=== PATIENT | male | born 1985 | race Caucasian/White ===

== ENCOUNTER 2018-07-02 14:21 | Emergency (ER) | payer MEDICAID ==
[2018-07-02] MEDS ORDERED: Sodium Chloride 0.9% 10 ML Syringe FLUSH PRN (14:32)
[2018-07-02] MEDS ORDERED: Albuterol/Ipratropium 3.0-0.5 MG/3 ML Neb Soln NEB ONE (14:32)
[2018-07-02] MEDS ORDERED: Sodium Chloride 0.9% 2.5 ML Syringe FLUSH PRN (14:32)
--- NOTE | 2018-07-02 14:36 | EDM.PDOC ---
<Amanda Desai - Last Filed: 07/02/18 19:12> ED HPI GENERAL MEDICAL PROBLEM - General Chief Complaint: Respiratory Problem Stated Complaint: sob Time Seen by Provider: 07/02/18 14:31 - History of Present Illness INITIAL COMMENTS - FREE TEXT/NARRATIVE: Notes: Patient is alert and oriented. Admission for observation was offered to patient but he declines at this time. He is agreeable to close follow-up with primary care provider. Discussed the risks versus benefits of this with patient and he is agreeable to plan of care with any questions or concerns at this time. Plan: 1. Follow-up with your primary care provider as discussed. 2. Return to the ED as needed and as discussed. - Related Data Allergies Allergy/AdvReac Type Severity Reaction Status Date / Time No Known Allergies Allergy Verified 07/02/18 14:28 Home Meds: Home Meds Metoprolol Succinate 100 mg PO BID 03/15/18 [History] Potassium Chloride 20 meq PO DAILY #30 tablet.er 03/15/18 [Rx] methIMAzole [Methimazole] 30 tab PO DAILY 03/15/18 [History] Albuterol [Ventolin HFA] 1 puff INH Q4H #1 inhaler 07/02/18 [Rx] Furosemide [Lasix] 40 mg PO DAILY 07/02/18 [History] Warfarin [Coumadin] 07/02/18 [History] Course - Vital Signs Last Recorded V/S: Last Vital Signs Temp 97.5 F 07/02/18 14:24 Pulse 84 07/02/18 16:45 Resp 18 07/02/18 16:45 BP 123/86 07/02/18 16:45 Pulse Ox 97 07/02/18 16:45 - Orders/Labs/Meds Orders: Active Orders 24 hr Category Date Time Status EKG Documentation Completion [RC] STAT Care 07/02/18 14:32 Active RT Aerosol Therapy [RC] ASDIRECTED Care 07/02/18 14:32 Active Saline Lock Insert [OM.PC] Stat Oth 07/02/18 14:32 Ordered Labs: Laboratory Tests 07/02/18 07/02/18 07/02/18 Range/Units 14:51 14:51 14:51 WBC 4.99 (4.0-11.0) K/uL RBC 4.27 L (4.50-5.90) M/uL Hgb 12.6 L (13.0-17.0) g/dL Hct 38.0 (38.0-50.0) % MCV 89.0 (80.0-98.0) fL MCH 29.5 (27.0-32.0) pg MCHC 33.2 (31.0-37.0) g/dL RDW Std Deviation 55.5 (28.0-62.0) fl RDW Coeff of Avery 17 H (11.0-15.0) % Plt Count 128 L (150-400) K/uL MPV 12.20 H (7.40-12.00) fL Neut % (Auto) 78.6 (48.0-80.0) % Lymph % (Auto) 14.2 L (16.0-40.0) % [place] % (Auto) 5.6 (0.0-15.0) % Eos % (Auto) 1.2 (0.0-7.0) % Baso % (Auto) 0.4 (0.0-1.5) % Neut # (Auto) 3.9 (1.4-5.7) K/uL Lymph # (Auto) 0.7 (0.6-2.4) K/uL [place] # (Auto) 0.3 (0.0-0.8) K/uL Eos # (Auto) 0.1 (0.0-0.7) K/uL Baso # (Auto) 0.0 (0.0-0.1) K/uL Nucleated RBC % 0.0 /100WBC Nucleated RBCs # 0 K/uL INR 1.14 D-Dimer, Quantitative (0.0-0.50) mg/L FEU ABG Carboxyhemoglobin (0-15) % Sodium 137 (136-148) mmol/L Potassium 4.0 (3.5-5.1) mmol/L Chloride 102 (98-107) mmol/L Carbon Dioxide 25.4 (21.0-32.0) mmol/L BUN 15 (7.0-18.0) mg/dL Creatinine 0.9 (0.8-1.3) mg/dL Est Cr Clr Drug Dosing 114.56 mL/min Estimated GFR (MDRD) > 60.0 ml/min Glucose 134 H (74-106) mg/dL Calcium 8.9 (8.5-10.1) mg/dL Total Bilirubin 1.8 H (0.2-1.0) mg/dL AST 19 (15-37) IU/L ALT 27 (14-63) IU/L Alkaline Phosphatase 124 H (46-116) U/L Troponin I < 0.050 (0.000-0.056) ng/mL B-Natriuretic Peptide (<100) PG/ML Total Protein 8.1 (6.4-8.2) g/dL Albumin 3.8 (3.4-5.0) g/dL Globulin 4.3 H (2.6-4.0) g/dL Albumin/Globulin Ratio 0.9 (0.9-1.6) Urine Opiates Screen (NEGATIVE) Ur Oxycodone Screen (NEGATIVE) Urine Methadone Screen (NEGATIVE) Ur Barbiturates Screen (NEGATIVE) Ur Phencyclidine Scrn (NEGATIVE) Ur Amphetamine Screen (NEGATIVE) U Methamphetamines Scrn (NEGATIVE) U Benzodiazepines Scrn (NEGATIVE) U Cocaine Metab Screen (NEGATIVE) U Marijuana (THC) Screen (NEGATIVE) 07/02/18 07/02/18 07/02/18 Range/Units 14:51 14:51 16:55 WBC (4.0-11.0) K/uL RBC (4.50-5.90) M/uL Hgb (13.0-17.0) g/dL Hct (38.0-50.0) % MCV (80.0-98.0) fL MCH (27.0-32.0) pg MCHC (31.0-37.0) g/dL RDW Std Deviation (28.0-62.0) fl RDW Coeff of Avery (11.0-15.0) % Plt Count (150-400) K/uL MPV (7.40-12.00) fL Neut % (Auto) (48.0-80.0) % Lymph % (Auto) (16.0-40.0) % [place] % (Auto) (0.0-15.0) % Eos % (Auto) (0.0-7.0) % Baso % (Auto) (0.0-1.5) % Neut # (Auto) (1.4-5.7) K/uL Lymph # (Auto) (0.6-2.4) K/uL [place] # (Auto) (0.0-0.8) K/uL Eos # (Auto) (0.0-0.7) K/uL Baso # (Auto) (0.0-0.1) K/uL Nucleated RBC % /100WBC Nucleated RBCs # K/uL INR D-Dimer, Quantitative 0.27 (0.0-0.50) mg/L FEU ABG Carboxyhemoglobin (0-15) % Sodium (136-148) mmol/L Potassium (3.5-5.1) mmol/L Chloride (98-107) mmol/L Carbon Dioxide (21.0-32.0) mmol/L BUN (7.0-18.0) mg/dL Creatinine (0.8-1.3) mg/dL Est Cr Clr Drug Dosing mL/min Estimated GFR (MDRD) ml/min Glucose (74-106) mg/dL Calcium (8.5-10.1) mg/dL Total Bilirubin (0.2-1.0) mg/dL AST (15-37) IU/L ALT (14-63) IU/L Alkaline Phosphatase (46-116) U/L Troponin I (0.000-0.056) ng/mL B-Natriuretic Peptide 150 H (<100) PG/ML Total Protein (6.4-8.2) g/dL Albumin (3.4-5.0) g/dL Globulin (2.6-4.0) g/dL Albumin/Globulin Ratio (0.9-1.6) Urine Opiates Screen NEGATIVE (NEGATIVE) Ur Oxycodone Screen NEGATIVE (NEGATIVE) Urine Methadone Screen NEGATIVE (NEGATIVE) Ur Barbiturates Screen NEGATIVE (NEGATIVE) Ur Phencyclidine Scrn NEGATIVE (NEGATIVE) Ur Amphetamine Screen NEGATIVE (NEGATIVE) U Methamphetamines Scrn NEGATIVE (NEGATIVE) U Benzodiazepines Scrn NEGATIVE (NEGATIVE) U Cocaine Metab Screen NEGATIVE (NEGATIVE) U Marijuana (THC) Screen NEGATIVE (NEGATIVE) 07/02/18 Range/Units 18:08 WBC (4.0-11.0) K/uL RBC (4.50-5.90) M/uL Hgb (13.0-17.0) g/dL Hct (38.0-50.0) % MCV (80.0-98.0) fL MCH (27.0-32.0) pg MCHC (31.0-37.0) g/dL RDW Std Deviation (28.0-62.0) fl RDW Coeff of Avery (11.0-15.0) % Plt Count (150-400) K/uL MPV (7.40-12.00) fL Neut % (Auto) (48.0-80.0) % Lymph % (Auto) (16.0-40.0) % [place] % (Auto) (0.0-15.0) % Eos % (Auto) (0.0-7.0) % Baso % (Auto) (0.0-1.5) % Neut # (Auto) (1.4-5.7) K/uL Lymph # (Auto) (0.6-2.4) K/uL [place] # (Auto) (0.0-0.8) K/uL Eos # (Auto) (0.0-0.7) K/uL Baso # (Auto) (0.0-0.1) K/uL Nucleated RBC % /100WBC Nucleated RBCs # K/uL INR D-Dimer, Quantitative (0.0-0.50) mg/L FEU ABG Carboxyhemoglobin 3.3 (0-15) % Sodium (136-148) mmol/L Potassium (3.5-5.1) mmol/L Chloride (98-107) mmol/L Carbon Dioxide (21.0-32.0) mmol/L BUN (7.0-18.0) mg/dL Creatinine (0.8-1.3) mg/dL Est Cr Clr Drug Dosing mL/min Estimated GFR (MDRD) ml/min Glucose (74-106) mg/dL Calcium (8.5-10.1) mg/dL Total Bilirubin (0.2-1.0) mg/dL AST (15-37) IU/L ALT (14-63) IU/L Alkaline Phosphatase (46-116) U/L Troponin I (0.000-0.056) ng/mL B-Natriuretic Peptide (<100) PG/ML Total Protein (6.4-8.2) g/dL Albumin (3.4-5.0) g/dL Globulin (2.6-4.0) g/dL Albumin/Globulin Ratio (0.9-1.6) Urine Opiates Screen (NEGATIVE) Ur Oxycodone Screen (NEGATIVE) Urine Methadone Screen (NEGATIVE) Ur Barbiturates Screen (NEGATIVE) Ur Phencyclidine Scrn (NEGATIVE) Ur Amphetamine Screen (NEGATIVE) U Methamphetamines Scrn (NEGATIVE) U Benzodiazepines Scrn (NEGATIVE) U Cocaine Metab Screen (NEGATIVE) U Marijuana (THC) Screen (NEGATIVE) Meds: Medications Discontinued Medications Generic Name Dose Route Start Last Admin Trade Name Freq PRN Reason Stop Dose Admin Albuterol/Ipratropium 3 ml 07/02/18 14:32 07/02/18 14:50 Duoneb 3.0-0.5 Mg/3 Ml NEB 07/02/18 14:33 3 ml ONETIME ONE Administration Iopamidol 100 ml 07/02/18 18:03 07/02/18 18:04 Isovue Multipack-370 (76%) IVPUSH 07/02/18 18:04 100 ml ONETIME STA Administration Sodium Chloride 10 ml 07/02/18 14:32 Saline Flush FLUSH ASDIRECTED PRN Keep Vein Open Sodium Chloride 2.5 ml 07/02/18 14:32 Saline Flush FLUSH ASDIRECTED PRN Keep Vein Open Departure - Departure Time of Disposition: 19:11 Disposition: Home, Self-Care 01 Clinical Impression: Dyspnea Qualifiers: Dyspnea type: unspecified Qualified Code(s): R06.00 - Dyspnea, unspecified - Discharge Information Prescriptions: Albuterol [Ventolin HFA] 1 puff INH Q4H #1 inhaler Instructions: Shortness of Breath, Adult, [id number] Referrals: PCP,None [Primary Care Provider] - Forms: ED Department Discharge Additional Instructions: The following information is given to patients seen in the emergency department who are being discharged to home. This information is to outline your options for follow-up care. We provide all patients seen in our emergency department with a follow-up referral. The need for follow-up, as well as the timing and circumstances, are variable depending upon the specifics of your emergency department visit. If you don't have a primary care physician on staff, we will provide you with a referral. We always advise you to contact your personal physician following an emergency department visit to inform them of the circumstance of the visit and for follow-up with them and/or the need for any referrals to a consulting specialist. The emergency department will also refer you to a specialist when appropriate. This referral assures that you have the opportunity for follow-up care with a specialist. All of these measure are taken in an effort to provide you with optimal care, which includes your follow-up. Under all circumstances we always encourage you to contact your private physician who remains a resource for coordinating your care. When calling for follow-up care, please make the office aware that this follow-up is from your recent emergency room visit. If for any reason you are refused follow-up, please contact the [facility] Emergency Department at and asked to speak to the emergency department charge nurse. [facility] [address] [place] [address] [place] [address] 1. Follow-up with your primary care provider as discussed. 2. Return to the ED as needed and as discussed. - My Orders Last 24 Hours: My Active Orders 07/02/18 14:32 EKG Documentation Completion [RC] STAT RT Aerosol Therapy [RC] ASDIRECTED Saline Lock Insert [OM.PC] Stat - Assessment/Plan Last 24 Hours: My Active Orders 07/02/18 14:32 EKG Documentation Completion [RC] STAT RT Aerosol Therapy [RC] ASDIRECTED Saline Lock Insert [OM.PC] Stat <Carson Trujillo E - Last Filed: 07/03/18 14:03> ED HPI GENERAL MEDICAL PROBLEM - General Source of Information: Reports: Patient History Limitations: Reports: No Limitations - History of Present Illness INITIAL COMMENTS - FREE TEXT/NARRATIVE: HISTORY AND PHYSICAL: History of present illness: Patient is a 33-year-old male presents to the ED today with concerns for shortness of breath. Patient states that while he was at work an hour prior to arrival to the ED he began to feel like he couldn't catch his breath. Patient states that since then he has felt short of breath and like he has to sit up all the time. He states he's never had this happen to him prior. Patient denies fever, chills, chest pain, or cough. Denies headache, neck stiff ness, change in vision, syncope, or near syncope. He denies nausea, vomiting, abdominal pain, diarrhea, constipation, or dysuria. Has not noted any blood in urine or stool. Patient has been eating and drinking appropriately. Patient does have a history of atrial fibrillation and states he is on warfarin. Patient states he does not get his warfarin levels checked as that requires him going back: [place]. Review of systems: As per history of present illness and below otherwise all systems reviewed and negative. Past medical history: As per history of present illness and as reviewed below otherwise noncontributory. Surgical history: As per history of present illness and as reviewed below otherwise noncontributory. Social history: See social history for further information Family history: As per history of present illness and as reviewed below otherwise noncontributory. Physical exam: Physical exam is limited due to patient's body habitus. General: Patient is alert, oriented, and in no acute distress. He is sitting comfortably on exam table. HEENT: Atraumatic, normocephalic, pupils equal and reactive bilaterally, negative for conjunctival pallor or scleral icterus, mucous membranes moist, TMs normal bilaterally, throat clear, neck supple, nontender, trachea midline. No drooling or trismus noted. No meningeal signs. No hot potato voice noted. Lungs: Clear to auscultation, breath sounds equal bilaterally, chest nontender. Heart: Heart sounds are difficult to hear due to body habitus. S1S2, regular rate and rhythm without overt murmur Abdomen: Morbidly obese. Firm, distended, nontender. Negative for masses or hepatosplenomegaly. Negative for costovertebral tenderness. Pelvis: Stable nontender. Genitourinary: Deferred. Rectal: Deferred. Skin: Intact, warm, dry. No lesions or rashes noted. Extremities: Atraumatic, negative for cords or calf pain. Neurovascular unremarkable. Neuro: Awake, alert, oriented. Cranial nerves II through XII unremarkable. Cerebellum unremarkable. Motor and sensory unremarkable throughout. Exam nonfocal. Notes: NADEEM Mccarthy has assumed care of this patient will follow remaining diagnostics and disposition. Diagnostics: CBC, CMP, Troponin, EKG, CXR, ddimer, BNP Therapeutics: DuoNeb Impression: Dyspnea, unspecified Definitive disposition and diagnosis as appropriate pending reevaluation and review of above. Past Medical History Cardiovascular History: Reports: Afib, Hypertension, Other (See Below) Other Cardiovascular History: CHF Endocrine/Metabolic History: Reports: Hypothyroidism - Infectious Disease History Infectious Disease History: Reports: Chicken Pox Social & Family History - Family History Family Medical History: Noncontributory - Tobacco Use Smoking Status *Q: Current Every Day Smoker Years of Tobacco use: 15 Packs/Tins Daily: 0.5 - Caffeine Use Caffeine Use: Reports: Coffee - Recreational Drug Use Recreational Drug Use: No ED ROS GENERAL - Review of Systems Review Of Systems: ROS reveals no pertinent complaints other than HPI. ED EXAM, GENERAL - Physical Exam Exam: See Below (see dictation) Course - Orders/Labs/Meds Labs: Laboratory Tests 07/02/18 07/02/18 07/02/18 Range/Units 14:51 14:51 14:51 WBC 4.99 (4.0-11.0) K/uL RBC 4.27 L (4.50-5.90) M/uL Hgb 12.6 L (13.0-17.0) g/dL Hct 38.0 (38.0-50.0) % MCV 89.0 (80.0-98.0) fL MCH 29.5 (27.0-32.0) pg MCHC 33.2 (31.0-37.0) g/dL RDW Std Deviation 55.5 (28.0-62.0) fl RDW Coeff of Avery 17 H (11.0-15.0) % Plt Count 128 L (150-400) K/uL MPV 12.20 H (7.40-12.00) fL Neut % (Auto) 78.6 (48.0-80.0) % Lymph % (Auto) 14.2 L (16.0-40.0) % [place] % (Auto) 5.6 (0.0-15.0) % Eos % (Auto) 1.2 (0.0-7.0) % Baso % (Auto) 0.4 (0.0-1.5) % Neut # (Auto) 3.9 (1.4-5.7) K/uL Lymph # (Auto) 0.7 (0.6-2.4) K/uL [place] # (Auto) 0.3 (0.0-0.8) K/uL Eos # (Auto) 0.1 (0.0-0.7) K/uL Baso # (Auto) 0.0 (0.0-0.1) K/uL Nucleated RBC % 0.0 /100WBC Nucleated RBCs # 0 K/uL INR 1.14 D-Dimer, Quantitative (0.0-0.50) mg/L FEU ABG Carboxyhemoglobin (0-15) % Sodium 137 (136-148) mmol/L Potassium 4.0 (3.5-5.1) mmol/L Chloride 102 (98-107) mmol/L Carbon Dioxide 25.4 (21.0-32.0) mmol/L BUN 15 (7.0-18.0) mg/dL Creatinine 0.9 (0.8-1.3) mg/dL Est Cr Clr Drug Dosing 114.56 mL/min Estimated GFR (MDRD) > 60.0 ml/min Glucose 134 H (74-106) mg/dL Calcium 8.9 (8.5-10.1) mg/dL Total Bilirubin 1.8 H (0.2-1.0) mg/dL AST 19 (15-37) IU/L ALT 27 (14-63) IU/L Alkaline Phosphatase 124 H (46-116) U/L Troponin I < 0.050 (0.000-0.056) ng/mL B-Natriuretic Peptide (<100) PG/ML Total Protein 8.1 (6.4-8.2) g/dL Albumin 3.8 (3.4-5.0) g/dL Globulin 4.3 H (2.6-4.0) g/dL Albumin/Globulin Ratio 0.9 (0.9-1.6) Urine Opiates Screen (NEGATIVE) Ur Oxycodone Screen (NEGATIVE) Urine Methadone Screen (NEGATIVE) Ur Barbiturates Screen (NEGATIVE) Ur Phencyclidine Scrn (NEGATIVE) Ur Amphetamine Screen (NEGATIVE) U Methamphetamines Scrn (NEGATIVE) U Benzodiazepines Scrn (NEGATIVE) U Cocaine Metab Screen (NEGATIVE) U Marijuana (THC) Screen (NEGATIVE) 07/02/18 07/02/18 07/02/18 Range/Units 14:51 14:51 16:55 WBC (4.0-11.0) K/uL RBC (4.50-5.90) M/uL Hgb (13.0-17.0) g/dL Hct (38.0-50.0) % MCV (80.0-98.0) fL MCH (27.0-32.0) pg MCHC (31.0-37.0) g/dL RDW Std Deviation (28.0-62.0) fl RDW Coeff of Avery (11.0-15.0) % Plt Count (150-400) K/uL MPV (7.40-12.00) fL Neut % (Auto) (48.0-80.0) % Lymph % (Auto) (16.0-40.0) % [place] % (Auto) (0.0-15.0) % Eos % (Auto) (0.0-7.0) % Baso % (Auto) (0.0-1.5) % Neut # (Auto) (1.4-5.7) K/uL Lymph # (Auto) (0.6-2.4) K/uL [place] # (Auto) (0.0-0.8) K/uL Eos # (Auto) (0.0-0.7) K/uL Baso # (Auto) (0.0-0.1) K/uL Nucleated RBC % /100WBC Nucleated RBCs # K/uL INR D-Dimer, Quantitative 0.27 (0.0-0.50) mg/L FEU ABG Carboxyhemoglobin (0-15) % Sodium (136-148) mmol/L Potassium (3.5-5.1) mmol/L Chloride (98-107) mmol/L Carbon Dioxide (21.0-32.0) mmol/L BUN (7.0-18.0) mg/dL Creatinine (0.8-1.3) mg/dL Est Cr Clr Drug Dosing mL/min Estimated GFR (MDRD) ml/min Glucose (74-106) mg/dL Calcium (8.5-10.1) mg/dL Total Bilirubin (0.2-1.0) mg/dL AST (15-37) IU/L ALT (14-63) IU/L Alkaline Phosphatase (46-116) U/L Troponin I (0.000-0.056) ng/mL B-Natriuretic Peptide 150 H (<100) PG/ML Total Protein (6.4-8.2) g/dL Albumin (3.4-5.0) g/dL Globulin (2.6-4.0) g/dL Albumin/Globulin Ratio (0.9-1.6) Urine Opiates Screen NEGATIVE (NEGATIVE) Ur Oxycodone Screen NEGATIVE (NEGATIVE) Urine Methadone Screen NEGATIVE (NEGATIVE) Ur Barbiturates Screen NEGATIVE (NEGATIVE) Ur Phencyclidine Scrn NEGATIVE (NEGATIVE) Ur Amphetamine Screen NEGATIVE (NEGATIVE) U Methamphetamines Scrn NEGATIVE (NEGATIVE) U Benzodiazepines Scrn NEGATIVE (NEGATIVE) U Cocaine Metab Screen NEGATIVE (NEGATIVE) U Marijuana (THC) Screen NEGATIVE (NEGATIVE) 07/02/18 Range/Units 18:08 WBC (4.0-11.0) K/uL RBC (4.50-5.90) M/uL Hgb (13.0-17.0) g/dL Hct (38.0-50.0) % MCV (80.0-98.0) fL MCH (27.0-32.0) pg MCHC (31.0-37.0) g/dL RDW Std Deviation (28.0-62.0) fl RDW Coeff of Avery (11.0-15.0) % Plt Count (150-400) K/uL MPV (7.40-12.00) fL Neut % (Auto) (48.0-80.0) % Lymph % (Auto) (16.0-40.0) % [place] % (Auto) (0.0-15.0) % Eos % (Auto) (0.0-7.0) % Baso % (Auto) (0.0-1.5) % Neut # (Auto) (1.4-5.7) K/uL Lymph # (Auto) (0.6-2.4) K/uL [place] # (Auto) (0.0-0.8) K/uL Eos # (Auto) (0.0-0.7) K/uL Baso # (Auto) (0.0-0.1) K/uL Nucleated RBC % /100WBC Nucleated RBCs # K/uL INR D-Dimer, Quantitative (0.0-0.50) mg/L FEU ABG Carboxyhemoglobin 3.3 (0-15) % Sodium (136-148) mmol/L Potassium (3.5-5.1) mmol/L Chloride (98-107) mmol/L Carbon Dioxide (21.0-32.0) mmol/L BUN (7.0-18.0) mg/dL Creatinine (0.8-1.3) mg/dL Est Cr Clr Drug Dosing mL/min Estimated GFR (MDRD) ml/min Glucose (74-106) mg/dL Calcium (8.5-10.1) mg/dL Total Bilirubin (0.2-1.0) mg/dL AST (15-37) IU/L ALT (14-63) IU/L Alkaline Phosphatase (46-116) U/L Troponin I (0.000-0.056) ng/mL B-Natriuretic Peptide (<100) PG/ML Total Protein (6.4-8.2) g/dL Albumin (3.4-5.0) g/dL Globulin (2.6-4.0) g/dL Albumin/Globulin Ratio (0.9-1.6) Urine Opiates Screen (NEGATIVE) Ur Oxycodone Screen (NEGATIVE) Urine Methadone Screen (NEGATIVE) Ur Barbiturates Screen (NEGATIVE) Ur Phencyclidine Scrn (NEGATIVE) Ur Amphetamine Screen (NEGATIVE) U Methamphetamines Scrn (NEGATIVE) U Benzodiazepines Scrn (NEGATIVE) U Cocaine Metab Screen (NEGATIVE) U Marijuana (THC) Screen (NEGATIVE)
--- NOTE | 2018-07-02 15:04 | CR ---
EXAMINATION: Portable chest radiograph. HISTORY: Shortness of breath. FINDINGS: The trachea is midline. The heart is mildly enlarged for technique. The cardiomediastinal silhouette is within normal limits. No pulmonary infiltrates, effusions or pneumothorax. Osseous structures appear unremarkable. IMPRESSION: 1. No acute cardiopulmonary process. 2. Mild cardiomegaly.
[2018-07-02 15:23] LABS: CHLORIDE,CL 102 mmol/L (98-107); SODIUM,NA 137 mmol/L (136-148)
[2018-07-02] MEDS ORDERED: Iopamidol 755 MG/ML 500 ML Multipack Bottle IVPUSH STA (18:03)
--- NOTE | 2018-07-02 19:00 | CT ---
INDICATION: Chest pain, shortness of breath TECHNIQUE: CT chest pulmonary PE protocol acquired with 100 cc Isovue 370 IV contrast. COMPARISON: None FINDINGS: Cardiovascular structures: Exam is limited by patient body habitus. Although no large central pulmonary embolus is seen within the main or segmental branches of the pulmonary arteries, the subsegmental branches cannot be adequately evaluated with this exam. Cardiomegaly. No sign of aneurysm or dissection in the thoracic aorta. Mediastinum and mike: No mass or adenopathy. Lungs: Clear. Pleura and pericardium: No effusions. Chest wall and axilla: No mass or adenopathy. Upper abdomen: Unremarkable. Bones: No significant findings. IMPRESSION: Exam is limited by patient body habitus. Although no large central pulmonary embolus is seen within the main or segmental branches of the pulmonary arteries, the subsegmental branches cannot be adequately evaluated and pulmonary embolus cannot be excluded with this exam. No pneumonia, effusion, or pneumothorax. Cardiomegaly. Cardiology referral recommended. Please note that all CT scans at this facility use dose modulation, iterative reconstruction, and/or weight-based dosing when appropriate to reduce radiation dose to as low as reasonably achievable. Dictated by Mary Keller MD @ Jul 02 2018 6:57PM Signed by Dr. Mary Keller @ Jul 02 2018 6:57PM
== END 2018-07-02 19:34 | disposition home or self-care (01) ==
LOC: MW.ED 14:21
DX: R06.00 Dyspnea, unspecified (principal); I48.91 Unspecified atrial fibrillation; I11.0 Hypertensive heart disease with heart failure; I50.9 Heart failure, unspecified; E03.9 Hypothyroidism, unspecified; F17.210 Nicotine dependence, cigarettes, uncomplicated
CPT/HCPCS: 36415; 71045; 71275; 80053; 80305; 82375; 83880; 84484; 85025; 85379; 85610; 93005; 94640; 99285; Q9967; J7620-GY

== ENCOUNTER 2018-09-07 07:48 | Inpatient (IN) | payer MEDICAID ==
[2018-09-07] MEDS ORDERED: Furosemide 40 MG/4 ML VIAL IVPUSH ONE (08:00)
[2018-09-07] MEDS ORDERED: Sodium Chloride 0.9% 1,000 ML IV SCH (08:00)
[2018-09-07] MEDS ORDERED: methylPREDNISolone Sodium Succinate 125 MG/2 ML SDV IVPUSH ONE (08:00)
[2018-09-07] MEDS ORDERED: Albuterol/Ipratropium 3.0-0.5 MG/3 ML Neb Soln NEB ONE (08:00)
[2018-09-07] MEDS ORDERED: Diltiazem 25 MG/5 ML SDV IVPUSH ONE ×2 (08:04→08:51)
--- NOTE | 2018-09-07 08:06 | EDM.PDOC ---
ED HPI GENERAL MEDICAL PROBLEM - General Chief Complaint: Respiratory Problem Stated Complaint: SHORTNESS OF BREATH Time Seen by Provider: 09/07/18 08:04 Source of Information: Reports: Patient - History of Present Illness INITIAL COMMENTS - FREE TEXT/NARRATIVE: HISTORY AND PHYSICAL: History of present illness: []Patient presents with 2-3 days of shortness breath and increasing edema No fever nausea vomiting chills sweats no chest pain headache dizziness palpitation no bowel or urine symptoms Review of systems: As per history of present illness and below otherwise all systems reviewed and negative. Past medical history: As per history of present illness and as reviewed below otherwise noncontributory. Surgical history: As per history of present illness and as reviewed below otherwise noncontributory. Social history: No reported history of drug or alcohol abuse. Family history: As per history of present illness and as reviewed below otherwise noncontributory. Physical exam: HEENT: Atraumatic, normocephalic, pupils reactive, negative for conjunctival pallor or scleral icterus, mucous membranes moist, throat clear, neck supple, nontender, trachea midline. Lungs: Clear to auscultation, breath sounds equal bilaterally, chest nontender. Heart: S1S2, regular, negative for clicks, rubs, or JVD. Abdomen: Soft, nondistended, nontender. Negative for masses or hepatosplenomegaly. Negative for costovertebral tenderness. Pelvis: Stable nontender. Genitourinary: Deferred. Rectal: Deferred. Extremities: Atraumatic, negative for cords or calf pain. Neurovascular unremarkable. Neuro: Awake, alert, oriented. Cranial nerves II through XII unremarkable. Cerebellum unremarkable. Motor and sensory unremarkable throughout. Exam nonfocal. Diagnostics: [CBC CMP UA INR troponin BN peptide EKG Chest 1 view ] Therapeutics: [ normal saline Lasix 40 mg IDuoNeb Solu-Medrol V Cardizem 20 mg IV ] Impression: [ A. fib with RVR]-read 140 CHF Subtherapeutic INR Edema Short of breath Definitive disposition and diagnosis as appropriate pending reevaluation and review of above. - Related Data Allergies Allergy/AdvReac Type Severity Reaction Status Date / Time No Known Allergies Allergy Verified 09/07/18 07:54 Home Meds: Home Meds Metoprolol Succinate 100 mg PO BID 03/15/18 [History] Potassium Chloride 20 meq PO DAILY #30 tablet.er 03/15/18 [Rx] methIMAzole [Methimazole] 30 tab PO DAILY 03/15/18 [History] Albuterol [Ventolin HFA] 1 puff INH Q4H #1 inhaler 07/02/18 [Rx] Furosemide [Lasix] 40 mg PO DAILY 07/02/18 [History] Warfarin [Coumadin] 07/02/18 [History] Past Medical History Cardiovascular History: Reports: Afib, Hypertension, Other (See Below) Other Cardiovascular History: CHF Endocrine/Metabolic History: Reports: Hypothyroidism - Infectious Disease History Infectious Disease History: Reports: Chicken Pox - Past Surgical History Cardiovascular Surgical History: Reports: None Social & Family History - Family History Family Medical History: Noncontributory - Tobacco Use Years of Tobacco use: 3 Packs/Tins Daily: 0.5 - Caffeine Use Caffeine Use: Reports: None - Recreational Drug Use Recreational Drug Use: No ED ROS GENERAL - Review of Systems Review Of Systems: See Below ED EXAM, GENERAL - Physical Exam Exam: See Below Course - Vital Signs Last Recorded V/S: Last Vital Signs Temp 97.2 F 09/07/18 07:56 Pulse 92 09/07/18 10:15 Resp 20 09/07/18 10:15 BP 136/83 09/07/18 10:15 Pulse Ox 94 L 09/07/18 10:15 - Orders/Labs/Meds Orders: Active Orders 24 hr Category Date Time Status EKG Documentation Completion [RC] STAT Care 09/07/18 08:02 Active RT Aerosol Therapy [RC] ASDIRECTED Care 09/07/18 08:01 Active CULTURE BLOOD [BC] Stat Lab 09/07/18 08:50 Received CULTURE BLOOD [BC] Stat Lab 09/07/18 09:00 Results UA RFX ADALID AND CULT IF INDIC [URIN] Stat Lab 09/07/18 08:49 Received Sodium Chloride 0.9% [Normal Saline] 1,000 ml Med 09/07/18 08:00 Active IV STAT Blood Culture x2 Reflex Set [OM.PC] Stat Oth 09/07/18 08:01 Ordered Medication Orders Sodium Chloride (Normal Saline) 1,000 mls @ 125 mls/hr IV STAT NOAH Last Admin: 09/07/18 08:11 Dose: 125 mls/hr Labs: Laboratory Tests 0609/07/18 09/07/18 Range/Units 07:58 07:58 07:58 WBC 5.05 (4.0-11.0) K/uL RBC 4.28 L (4.50-5.90) M/uL Hgb 12.5 L (13.0-17.0) g/dL Hct 39.2 (38.0-50.0) % MCV 91.6 (80.0-98.0) fL MCH 29.2 (27.0-32.0) pg MCHC 31.9 (31.0-37.0) g/dL RDW Std Deviation 51.9 (28.0-62.0) fl RDW Coeff of Avery 16 H (11.0-15.0) % Plt Count 147 L (150-400) K/uL MPV 13.10 H (7.40-12.00) fL Neut % (Auto) 66.7 (48.0-80.0) % Lymph % (Auto) 17.4 (16.0-40.0) % [place] % (Auto) 14.1 (0.0-15.0) % Eos % (Auto) 1.6 (0.0-7.0) % Baso % (Auto) 0.2 (0.0-1.5) % Neut # (Auto) 3.4 (1.4-5.7) K/uL Lymph # (Auto) 0.9 (0.6-2.4) K/uL [place] # (Auto) 0.7 (0.0-0.8) K/uL Eos # (Auto) 0.1 (0.0-0.7) K/uL Baso # (Auto) 0.0 (0.0-0.1) K/uL Nucleated RBC % 0.0 /100WBC Nucleated RBCs # 0 K/uL INR 1.28 D-Dimer, Quantitative (0.0-0.50) mg/L FEU Sodium 136 (136-148) mmol/L Potassium 4.0 (3.5-5.1) mmol/L Chloride 103 (98-107) mmol/L Carbon Dioxide 22.4 (21.0-32.0) mmol/L BUN 15 (7.0-18.0) mg/dL Creatinine 0.9 (0.8-1.3) mg/dL Est Cr Clr Drug Dosing 114.56 mL/min Estimated GFR (MDRD) > 60.0 ml/min Glucose 107 H (74-106) mg/dL Calcium 8.9 (8.5-10.1) mg/dL Total Bilirubin 2.3 H (0.2-1.0) mg/dL AST 28 (15-37) IU/L ALT 32 (14-63) IU/L Alkaline Phosphatase 218 H (46-116) U/L Creatine Kinase 113 (26-308) U/L Troponin I < 0.050 (0.000-0.056) ng/mL B-Natriuretic Peptide (<100) PG/ML Total Protein 8.2 (6.4-8.2) g/dL Albumin 3.5 (3.4-5.0) g/dL Globulin 4.7 H (2.6-4.0) g/dL Albumin/Globulin Ratio 0.7 L (0.9-1.6) Urine Opiates Screen (NEGATIVE) Ur Oxycodone Screen (NEGATIVE) Urine Methadone Screen (NEGATIVE) Ur Barbiturates Screen (NEGATIVE) Ur Phencyclidine Scrn (NEGATIVE) Ur Amphetamine Screen (NEGATIVE) U Methamphetamines Scrn (NEGATIVE) U Benzodiazepines Scrn (NEGATIVE) U Cocaine Metab Screen (NEGATIVE) U Marijuana (THC) Screen (NEGATIVE) 09/07/18 09/07/18 09/07/18 Range/Units 07:58 07:58 08:49 WBC (4.0-11.0) K/uL RBC (4.50-5.90) M/uL Hgb (13.0-17.0) g/dL Hct (38.0-50.0) % MCV (80.0-98.0) fL MCH (27.0-32.0) pg MCHC (31.0-37.0) g/dL RDW Std Deviation (28.0-62.0) fl RDW Coeff of Avery (11.0-15.0) % Plt Count (150-400) K/uL MPV (7.40-12.00) fL Neut % (Auto) (48.0-80.0) % Lymph % (Auto) (16.0-40.0) % [place] % (Auto) (0.0-15.0) % Eos % (Auto) (0.0-7.0) % Baso % (Auto) (0.0-1.5) % Neut # (Auto) (1.4-5.7) K/uL Lymph # (Auto) (0.6-2.4) K/uL [place] # (Auto) (0.0-0.8) K/uL Eos # (Auto) (0.0-0.7) K/uL Baso # (Auto) (0.0-0.1) K/uL Nucleated RBC % /100WBC Nucleated RBCs # K/uL INR D-Dimer, Quantitative 1.03 H (0.0-0.50) mg/L FEU Sodium (136-148) mmol/L Potassium (3.5-5.1) mmol/L Chloride (98-107) mmol/L Carbon Dioxide (21.0-32.0) mmol/L BUN (7.0-18.0) mg/dL Creatinine (0.8-1.3) mg/dL Est Cr Clr Drug Dosing mL/min Estimated GFR (MDRD) ml/min Glucose (74-106) mg/dL Calcium (8.5-10.1) mg/dL Total Bilirubin (0.2-1.0) mg/dL AST (15-37) IU/L ALT (14-63) IU/L Alkaline Phosphatase (46-116) U/L Creatine Kinase (26-308) U/L Troponin I (0.000-0.056) ng/mL B-Natriuretic Peptide 268 H (<100) PG/ML Total Protein (6.4-8.2) g/dL Albumin (3.4-5.0) g/dL Globulin (2.6-4.0) g/dL Albumin/Globulin Ratio (0.9-1.6) Urine Opiates Screen NEGATIVE (NEGATIVE) Ur Oxycodone Screen NEGATIVE (NEGATIVE) Urine Methadone Screen NEGATIVE (NEGATIVE) Ur Barbiturates Screen NEGATIVE (NEGATIVE) Ur Phencyclidine Scrn NEGATIVE (NEGATIVE) Ur Amphetamine Screen NEGATIVE (NEGATIVE) U Methamphetamines Scrn NEGATIVE (NEGATIVE) U Benzodiazepines Scrn NEGATIVE (NEGATIVE) U Cocaine Metab Screen NEGATIVE (NEGATIVE) U Marijuana (THC) Screen NEGATIVE (NEGATIVE) Meds: Medications Generic Name Dose Route Start Last Admin Trade Name Freq PRN Reason Stop Dose Admin Sodium Chloride 1,000 mls @ 125 mls/hr 09/07/18 08:00 09/07/18 08:11 Normal Saline IV 125 mls/hr STAT NOAH Administration Discontinued Medications Generic Name Dose Route Start Last Admin Trade Name Alex MARAVILLAN Reason Stop Dose Admin Albuterol/Ipratropium 3 ml 09/07/18 08:00 09/07/18 08:08 Duoneb 3.0-0.5 Mg/3 Ml NEB 09/07/18 08:01 3 ml ONETIME ONE Administration Diltiazem HCl 20 mg 09/07/18 08:04 09/07/18 08:14 Diltiazem IVPUSH 09/07/18 08:05 20 mg ONETIME ONE Administration Diltiazem HCl 20 mg 09/07/18 08:51 09/07/18 09:00 Diltiazem IVPUSH 09/07/18 08:52 20 mg ONETIME ONE Administration Enoxaparin Sodium 238 mg 09/07/18 09:01 09/07/18 09:26 Lovenox SUBCUT 09/07/18 09:02 Not Given ONETIME ONE Enoxaparin Sodium 238 mg 09/07/18 09:17 09/07/18 09:40 Lovenox SUBCUT 09/07/18 09:18 238 mg ONETIME ONE Administration Furosemide 40 mg 09/07/18 08:00 09/07/18 08:11 Lasix IVPUSH 09/07/18 08:01 40 mg NOW ONE Administration Iopamidol 100 ml 09/07/18 09:51 09/07/18 09:52 Isovue Multipack-370 (76%) IVPUSH 09/07/18 09:52 100 ml ONETIME STA Administration Methylprednisolone Sodium Succinate 125 mg 09/07/18 08:00 09/07/18 08:11 Solu-Medrol IVPUSH 09/07/18 08:01 125 mg ONETIME ONE Administration Metoprolol Tartrate 5 mg 09/07/18 10:41 Lopressor IVPUSH 09/07/18 10:42 NOW STA Departure - Departure Time of Disposition: 10:45 Disposition: Refer to Observation Condition: Poor Clinical Impression: Atrial fibrillation with RVR, Dependent edema, Subtherapeutic international normalized ratio (INR) Dyspnea Qualifiers: Dyspnea type: unspecified Qualified Code(s): R06.00 - Dyspnea, unspecified - Discharge Information Referrals: PCP,None [Primary Care Provider] - Forms: ED Department Discharge - My Orders Last 24 Hours: My Active Orders 09/07/18 08:00 Sodium Chloride 0.9% [Normal Saline] 1,000 ml IV STAT 09/07/18 08:01 RT Aerosol Therapy [RC] ASDIRECTED Blood Culture x2 Reflex Set [OM.PC] Stat 09/07/18 08:02 EKG Documentation Completion [RC] STAT 09/07/18 08:49 UA RFX ADALID AND CULT IF INDIC [URIN] Stat 09/07/18 08:50 CULTURE BLOOD [BC] Stat 09/07/18 09:00 CULTURE BLOOD [BC] Stat - Assessment/Plan Last 24 Hours: My Active Orders 09/07/18 08:00 Sodium Chloride 0.9% [Normal Saline] 1,000 ml IV STAT 09/07/18 08:01 RT Aerosol Therapy [RC] ASDIRECTED Blood Culture x2 Reflex Set [OM.PC] Stat 09/07/18 08:02 EKG Documentation Completion [RC] STAT 09/07/18 08:49 UA RFX ADALID AND CULT IF INDIC [URIN] Stat 09/07/18 08:50 CULTURE BLOOD [BC] Stat 09/07/18 09:00 CULTURE BLOOD [BC] Stat
[2018-09-07 08:34] LABS: CHLORIDE,CL 103 mmol/L (98-107); SODIUM,NA 136 mmol/L (136-148)
--- NOTE | 2018-09-07 08:44 | CR ---
Indication: Shortness of breath. Technique: A single AP portable view of the chest was obtained. Comparison: None Findings: The heart is enlarged. Bibasilar atelectasis identified. No pleural effusion or pneumothorax is identified. Impression: Cardiomegaly. Dictated by Sofy Rivera MD @ Sep 07 2018 8:44AM Signed by Dr. Sofy Rivera @ Sep 07 2018 8:44AM
[2018-09-07] MEDS ORDERED: Enoxaparin 100 MG/1 ML Syringe SUBCUT ONE (09:01)
[2018-09-07] MEDS ORDERED: Enoxaparin 150 MG/1 ML Syringe SUBCUT ONE (09:17)
[2018-09-07] MEDS ORDERED: Iopamidol 755 MG/ML 500 ML Multipack Bottle IVPUSH STA (09:51)
--- NOTE | 2018-09-07 10:25 | CT ---
Indication: Two days of worsening shortness of breath. History of hypertension and atrial fibrillation. Technique: Multiple contiguous axial images were obtained from the thoracic inlet through the upper abdomen after the intravenous administration of 100 milliliters Isovue 370. Please note that all CT scans at this facility use dose modulation, iterative reconstruction, and/or weight-based dosing when appropriate to reduce radiation dose to as low as reasonably achievable. Comparison: July 02, 2018. Findings: The heart is enlarged. No pericardial effusion is identified. No mediastinal, hilar, or axillary lymphadenopathy is identified. The aorta is normal in caliber. There is no evidence of aortic dissection. No pulmonary embolism is identified. This exam is limited due to the patient`s body habitus. The visualized portions of the liver and spleen are grossly normal. No lytic or blastic lesions of the spine are identified. The lungs are clear. No infiltrate, pleural effusion, or pneumothorax is identified. Impression: No evidence of pulmonary embolism. Limited examination due to the patient`s body habitus. Cardiomegaly. Please note that all CT scans at this facility use dose modulation, iterative reconstruction, and/or weight-based dosing when appropriate to reduce radiation dose to as low as reasonably achievable. Dictated by Sofy Rivera MD @ Sep 07 2018 10:13AM Signed by Dr. Sofy Rivera @ Sep 07 2018 10:23AM
[2018-09-07] MEDS ORDERED: Metoprolol Tartrate 5 MG/5 ML SDV IVPUSH STA (10:41)
[2018-09-07] MEDS ORDERED: Albuterol/Ipratropium 3.0-0.5 MG/3 ML Neb Soln NEB PRN (13:53)
--- NOTE | 2018-09-07 14:03 | PCM.HP ---
H&P History of Present Illness - General Date of Service: 09/07/18 Admit Problem/Dx: Admission Diagnosis/Problem Admission Diagnosis/Problem CHF, Congestive heart failure - History of Present Illness Initial Comments - Free Text/Narative: 33 yo male with pmh of CHF, atrial fibrillation and hyperthyroidism who presents with shortness of breath and palpitations. Patient reports a weight gain of 200 LBS over the past year and a half. He reports increased leg edema and shortness of breath when he lies down. He believes his medications have stopped working. He denies any fevers, chills, or chest pain. CT angiogram was negative for PE but reported cardiomegaly. He was noted to be in atrial fibrillation with RVR. In the ED he got several doses of diltiazem and IV fluids. He did also receive Lasix. - Related Data Allergies/Adverse Reactions: Allergies Allergy/AdvReac Type Severity Reaction Status Date / Time No Known Allergies Allergy Verified 09/07/18 07:54 Home Medications: Home Meds Metoprolol Succinate 50 mg PO BID 03/15/18 [History] Potassium Chloride 20 meq PO DAILY #30 tablet.er 03/15/18 [Rx] methIMAzole [Methimazole] 30 mg PO DAILY 03/15/18 [History] Furosemide [Lasix] 40 mg PO DAILY 07/02/18 [History] Warfarin [Coumadin] 50 mg PO DAILY 07/02/18 [History] Past Medical History Cardiovascular History: Reports: Afib, Hypertension, Other (See Below) Other Cardiovascular History: CHF Endocrine/Metabolic History: Reports: Hypothyroidism - Infectious Disease History Infectious Disease History: Reports: Chicken Pox - Past Surgical History Cardiovascular Surgical History: Reports: None Social & Family History - Family History Family Medical History: Noncontributory - Tobacco Use Smoking Status *Q: Light Tobacco Smoker Years of Tobacco use: 4 Packs/Tins Daily: 1 Used Tobacco, but Quit: No Second Hand Smoke Exposure: Yes - Caffeine Use Caffeine Use: Reports: Coffee, Energy Drinks, Soda, Tea Other Caffeine Use: Every day, a pot a coffee a day, two cokes a day, - Recreational Drug Use Recreational Drug Use: No H&P Review of Systems - Review of Systems: Review Of Systems: ROS reveals no pertinent complaints other than HPI. Exam - Exam Exam: See Below - Vital Signs Vital Signs: Last Vital Signs Temp 35.9 C 09/07/18 12:00 Pulse 104 H 09/07/18 12:00 Resp 20 09/07/18 12:00 BP 134/98 H 09/07/18 12:00 Pulse Ox 94 L 09/07/18 12:00 Weight: 235.006 kg - Exam General: Alert, Oriented, Other (morbidly obese) HEENT: Mucosa Moist & [place] Lungs: Clear to Auscultation, Normal Respiratory Effort Cardiovascular: Irregular Rhythm, Tachycardia GI/Abdominal Exam: Soft, Non-Tender Extremities: Non-Tender, No Pedal Edema, Normal Capillary Refill, Other (+3 edema) Skin: Warm, Dry, Intact - Patient Data Lab Results Last 24 hrs: Laboratory Results - last 24 hr 09/07/18 09/07/18 09/07/18 Range/Units 07:58 07:58 07:58 WBC 5.05 (4.0-11.0) K/uL RBC 4.28 L (4.50-5.90) M/uL Hgb 12.5 L (13.0-17.0) g/dL Hct 39.2 (38.0-50.0) % MCV 91.6 (80.0-98.0) fL MCH 29.2 (27.0-32.0) pg MCHC 31.9 (31.0-37.0) g/dL RDW Std Deviation 51.9 (28.0-62.0) fl RDW Coeff of Avery 16 H (11.0-15.0) % Plt Count 147 L (150-400) K/uL MPV 13.10 H (7.40-12.00) fL Neut % (Auto) 66.7 (48.0-80.0) % Lymph % (Auto) 17.4 (16.0-40.0) % [place] % (Auto) 14.1 (0.0-15.0) % Eos % (Auto) 1.6 (0.0-7.0) % Baso % (Auto) 0.2 (0.0-1.5) % Neut # (Auto) 3.4 (1.4-5.7) K/uL Lymph # (Auto) 0.9 (0.6-2.4) K/uL [place] # (Auto) 0.7 (0.0-0.8) K/uL Eos # (Auto) 0.1 (0.0-0.7) K/uL Baso # (Auto) 0.0 (0.0-0.1) K/uL Nucleated RBC % 0.0 /100WBC Nucleated RBCs # 0 K/uL INR 1.28 D-Dimer, Quantitative (0.0-0.50) mg/L FEU Sodium 136 (136-148) mmol/L Potassium 4.0 (3.5-5.1) mmol/L Chloride 103 (98-107) mmol/L Carbon Dioxide 22.4 (21.0-32.0) mmol/L BUN 15 (7.0-18.0) mg/dL Creatinine 0.9 (0.8-1.3) mg/dL Est Cr Clr Drug Dosing 114.56 mL/min Estimated GFR (MDRD) > 60.0 ml/min Glucose 107 H (74-106) mg/dL Calcium 8.9 (8.5-10.1) mg/dL Total Bilirubin 2.3 H (0.2-1.0) mg/dL AST 28 (15-37) IU/L ALT 32 (14-63) IU/L Alkaline Phosphatase 218 H (46-116) U/L Creatine Kinase 113 (26-308) U/L Troponin I < 0.050 (0.000-0.056) ng/mL B-Natriuretic Peptide (<100) PG/ML Total Protein 8.2 (6.4-8.2) g/dL Albumin 3.5 (3.4-5.0) g/dL Globulin 4.7 H (2.6-4.0) g/dL Albumin/Globulin Ratio 0.7 L (0.9-1.6) Urine Color Urine Appearance Urine pH (5.0-8.0) Ur Specific Dana (1.001-1.035) Urine Protein (NEGATIVE) mg/dL Urine Glucose (UA) (NEGATIVE) mg/dL Urine Ketones (NEGATIVE) mg/dL Urine Occult Blood (NEGATIVE) Urine Nitrite (NEGATIVE) Urine Bilirubin (NEGATIVE) Urine Urobilinogen (<2.0) EU/dL Ur Leukocyte Esterase (NEGATIVE) Urine Opiates Screen (NEGATIVE) Ur Oxycodone Screen (NEGATIVE) Urine Methadone Screen (NEGATIVE) Ur Barbiturates Screen (NEGATIVE) Ur Phencyclidine Scrn (NEGATIVE) Ur Amphetamine Screen (NEGATIVE) U Methamphetamines Scrn (NEGATIVE) U Benzodiazepines Scrn (NEGATIVE) U Cocaine Metab Screen (NEGATIVE) U Marijuana (THC) Screen (NEGATIVE) 09/07/18 09/07/18 09/07/18 Range/Units 07:58 07:58 08:49 WBC (4.0-11.0) K/uL RBC (4.50-5.90) M/uL Hgb (13.0-17.0) g/dL Hct (38.0-50.0) % MCV (80.0-98.0) fL MCH (27.0-32.0) pg MCHC (31.0-37.0) g/dL RDW Std Deviation (28.0-62.0) fl RDW Coeff of Avery (11.0-15.0) % Plt Count (150-400) K/uL MPV (7.40-12.00) fL Neut % (Auto) (48.0-80.0) % Lymph % (Auto) (16.0-40.0) % [place] % (Auto) (0.0-15.0) % Eos % (Auto) (0.0-7.0) % Baso % (Auto) (0.0-1.5) % Neut # (Auto) (1.4-5.7) K/uL Lymph # (Auto) (0.6-2.4) K/uL [place] # (Auto) (0.0-0.8) K/uL Eos # (Auto) (0.0-0.7) K/uL Baso # (Auto) (0.0-0.1) K/uL Nucleated RBC % /100WBC Nucleated RBCs # K/uL INR D-Dimer, Quantitative 1.03 H (0.0-0.50) mg/L FEU Sodium (136-148) mmol/L Potassium (3.5-5.1) mmol/L Chloride (98-107) mmol/L Carbon Dioxide (21.0-32.0) mmol/L BUN (7.0-18.0) mg/dL Creatinine (0.8-1.3) mg/dL Est Cr Clr Drug Dosing mL/min Estimated GFR (MDRD) ml/min Glucose (74-106) mg/dL Calcium (8.5-10.1) mg/dL Total Bilirubin (0.2-1.0) mg/dL AST (15-37) IU/L ALT (14-63) IU/L Alkaline Phosphatase (46-116) U/L Creatine Kinase (26-308) U/L Troponin I (0.000-0.056) ng/mL B-Natriuretic Peptide 268 H (<100) PG/ML Total Protein (6.4-8.2) g/dL Albumin (3.4-5.0) g/dL Globulin (2.6-4.0) g/dL Albumin/Globulin Ratio (0.9-1.6) Urine Color Urine Appearance Urine pH (5.0-8.0) Ur Specific [place] (1.001-1.035) Urine Protein (NEGATIVE) mg/dL Urine Glucose (UA) (NEGATIVE) mg/dL Urine Ketones (NEGATIVE) mg/dL Urine Occult Blood (NEGATIVE) Urine Nitrite (NEGATIVE) Urine Bilirubin (NEGATIVE) Urine Urobilinogen (<2.0) EU/dL Ur Leukocyte Esterase (NEGATIVE) Urine Opiates Screen NEGATIVE (NEGATIVE) Ur Oxycodone Screen NEGATIVE (NEGATIVE) Urine Methadone Screen NEGATIVE (NEGATIVE) Ur Barbiturates Screen NEGATIVE (NEGATIVE) Ur Phencyclidine Scrn NEGATIVE (NEGATIVE) Ur Amphetamine Screen NEGATIVE (NEGATIVE) U Methamphetamines Scrn NEGATIVE (NEGATIVE) U Benzodiazepines Scrn NEGATIVE (NEGATIVE) U Cocaine Metab Screen NEGATIVE (NEGATIVE) U Marijuana (THC) Screen NEGATIVE (NEGATIVE) 09/07/18 Range/Units 08:49 WBC (4.0-11.0) K/uL RBC (4.50-5.90) M/uL Hgb (13.0-17.0) g/dL Hct (38.0-50.0) % MCV (80.0-98.0) fL MCH (27.0-32.0) pg MCHC (31.0-37.0) g/dL RDW Std Deviation (28.0-62.0) fl RDW Coeff of Avery (11.0-15.0) % Plt Count (150-400) K/uL MPV (7.40-12.00) fL Neut % (Auto) (48.0-80.0) % Lymph % (Auto) (16.0-40.0) % [place] % (Auto) (0.0-15.0) % Eos % (Auto) (0.0-7.0) % Baso % (Auto) (0.0-1.5) % Neut # (Auto) (1.4-5.7) K/uL Lymph # (Auto) (0.6-2.4) K/uL [place] # (Auto) (0.0-0.8) K/uL Eos # (Auto) (0.0-0.7) K/uL Baso # (Auto) (0.0-0.1) K/uL Nucleated RBC % /100WBC Nucleated RBCs # K/uL INR D-Dimer, Quantitative (0.0-0.50) mg/L FEU Sodium (136-148) mmol/L Potassium (3.5-5.1) mmol/L Chloride (98-107) mmol/L Carbon Dioxide (21.0-32.0) mmol/L BUN (7.0-18.0) mg/dL Creatinine (0.8-1.3) mg/dL Est Cr Clr Drug Dosing mL/min Estimated GFR (MDRD) ml/min Glucose (74-106) mg/dL Calcium (8.5-10.1) mg/dL Total Bilirubin (0.2-1.0) mg/dL AST (15-37) IU/L ALT (14-63) IU/L Alkaline Phosphatase (46-116) U/L Creatine Kinase (26-308) U/L Troponin I (0.000-0.056) ng/mL B-Natriuretic Peptide (<100) PG/ML Total Protein (6.4-8.2) g/dL Albumin (3.4-5.0) g/dL Globulin (2.6-4.0) g/dL Albumin/Globulin Ratio (0.9-1.6) Urine Color YELLOW Urine Appearance CLEAR Urine pH 5.5 (5.0-8.0) Ur Specific [place] 1.015 (1.001-1.035) Urine Protein NEGATIVE (NEGATIVE) mg/dL Urine Glucose (UA) NEGATIVE (NEGATIVE) mg/dL Urine Ketones NEGATIVE (NEGATIVE) mg/dL Urine Occult Blood NEGATIVE (NEGATIVE) Urine Nitrite NEGATIVE (NEGATIVE) Urine Bilirubin NEGATIVE (NEGATIVE) Urine Urobilinogen 0.2 (<2.0) EU/dL Ur Leukocyte Esterase NEGATIVE (NEGATIVE) Urine Opiates Screen (NEGATIVE) Ur Oxycodone Screen (NEGATIVE) Urine Methadone Screen (NEGATIVE) Ur Barbiturates Screen (NEGATIVE) Ur Phencyclidine Scrn (NEGATIVE) Ur Amphetamine Screen (NEGATIVE) U Methamphetamines Scrn (NEGATIVE) U Benzodiazepines Scrn (NEGATIVE) U Cocaine Metab Screen (NEGATIVE) U Marijuana (THC) Screen (NEGATIVE) Result Diagrams: 09/08/18 05:52 09/08/18 05:52 Satish Results Last 24 hrs: Microbiology 09/07/18 09:00 Anaerobic Blood Culture - Final Blood - Venous - Lab Draw Problem List Initiated/Reviewed/Updated: Yes Orders Last 24hrs: Active Orders 24 hr Category Date Time Status Admission Status [Patient Status] [ADT] Stat ADT 09/07/18 10:49 Active Antiembolic Devices [RC] PER UNIT ROUTINE Care 09/07/18 13:55 Ordered EKG Documentation Completion [RC] STAT Care 09/07/18 08:02 Active Intake and Output [RC] QSHIFT Care 09/07/18 13:54 Ordered Oxygen Therapy [RC] PRN Care 09/07/18 13:53 Ordered RT Aerosol Therapy [RC] ASDIRECTED Care 09/07/18 08:01 Active RT Aerosol Therapy [RC] ASDIRECTED Care 09/07/18 13:55 Ordered Up ad Margarita [RC] ASDIRECTED Care 09/07/18 13:53 Ordered VTE/DVT Education [RC] PER UNIT ROUTINE Care 09/07/18 13:53 Ordered Vital Signs [RC] Q4H Care 09/07/18 13:53 Ordered 2 Gram Sodium Diet [DIET] Diet 09/07/18 Breakfast Ordered BASIC METABOLIC PANEL,BMP [CHEM] AM Lab 09/08/18 05:11 Ordered CBC WITH AUTO DIFF [HEME] AM Lab 09/08/18 05:11 Ordered CULTURE BLOOD [BC] Stat Lab 09/07/18 08:50 Received CULTURE BLOOD [BC] Stat Lab 09/07/18 09:00 Results INR,PT,PROTHROMBIN TIME [COAG] AM Lab 09/08/18 05:11 Ordered INR,PT,PROTHROMBIN TIME [COAG] AM Lab 09/09/18 05:11 Ordered INR,PT,PROTHROMBIN TIME [COAG] AM Lab 09/10/18 05:11 Ordered INR,PT,PROTHROMBIN TIME [COAG] AM Lab 09/11/18 05:11 Ordered Albuterol/Ipratropium [DuoNeb 3.0-0.5 MG/3 ML] Med 09/07/18 13:53 Ordered 3 ml NEB Q4HRRT PRN Furosemide [Lasix] Med 09/07/18 14:00 Ordered 40 mg IVPUSH TID Heparin Sodium Med 09/08/18 14:00 Ordered 5,000 units SUBCUT Q8H Warfarin Dosing [Coumadin Ask] Med 09/07/18 13:55 Once 1 each PO ONETIME ONE Blood Culture x2 Reflex Set [OM.PC] Stat Oth 09/07/18 08:01 Ordered Sequential Compression Device [OM.PC] Per Unit Routine Oth 09/07/18 13:54 Ordered Resuscitation Status Routine Resus Stat 09/07/18 13:53 Ordered Medication Orders Albuterol/Ipratropium (Duoneb 3.0-0.5 Mg/3 Ml) 3 ml NEB Q4HRRT PRN PRN Reason: Shortness Of Breath/wheezing Furosemide (Lasix) 40 mg IVPUSH TID NOAH Heparin Sodium (Porcine) (Heparin Sodium) 5,000 units SUBCUT Q8H NOAH Warfarin Sodium (Coumadin Ask) 1 each PO ONETIME ONE Stop: 09/07/18 13:56 Assessment/Plan Comment:: 33 yo male admitted with CHF exacerbation. CHF exacerbation: lasix TID, echocardiogram ordered Atrial fibrallation: controlled, will resume Coumadin
[2018-09-07] MEDS: Warfarin 10 MG Tab PO SCH (14:28)
[2018-09-07] MEDS: Furosemide 40 MG/4 ML VIAL IVPUSH SCH ×2 (14:28→21:25)
[2018-09-07] MEDS ORDERED: Diltiazem 25 MG/5 ML SDV IVPUSH PRN (16:03)
[2018-09-07] MEDS: Metoprolol Succinate 50 MG Tab.ER PO SCH (21:31)
[2018-09-08] MEDS: Furosemide 40 MG/4 ML VIAL IVPUSH SCH ×3 (05:26→21:14)
[2018-09-08 06:53] LABS: CHLORIDE,CL 102 mmol/L (98-107); SODIUM,NA 138 mmol/L (136-148)
[2018-09-08] MEDS: Metoprolol Succinate 50 MG Tab.ER PO SCH ×2 (08:01→21:09)
[2018-09-08] MEDS: Methimazole 5 MG Tab PO SCH (09:14)
[2018-09-08] MEDS: Warfarin 10 MG Tab PO SCH (14:48)
[2018-09-08] MEDS: Heparin Sodium 5,000 Units/ML Vial SUBCUT SCH ×2 (14:48→21:09)
--- NOTE | 2018-09-08 16:55 | PCM.PN ---
- General Info Date of Service: 09/08/18 - Review of Systems Systems Review Comment:: no significant change in symptoms of shortness of breath and leg edema - Patient Data Vitals - Most Recent: Last Vital Signs Temp 36.2 C 09/08/18 13:00 Pulse 115 H 09/08/18 13:00 Resp 20 09/08/18 13:00 BP 138/79 09/08/18 13:00 Pulse Ox 97 09/08/18 13:00 Weight - Most Recent: 235.006 kg I&O - Last 24 Hours: Intake & Output 09/08/18 09/08/18 09/08/18 06:59 14:59 22:59 Intake Total 240 240 Output Total 800 Balance -560 240 Lab Results Last 24 Hours: Laboratory Results - last 24 hr 09/07/18 09/08/18 09/08/18 Range/Units 16:58 05:52 05:52 WBC 4.47 (4.0-11.0) K/uL RBC 4.08 L (4.50-5.90) M/uL Hgb 12.0 L (13.0-17.0) g/dL Hct 37.2 L (38.0-50.0) % MCV 91.2 (80.0-98.0) fL MCH 29.4 (27.0-32.0) pg MCHC 32.3 (31.0-37.0) g/dL RDW Std Deviation 51.8 (28.0-62.0) fl RDW Coeff of Avery 16 H (11.0-15.0) % Plt Count 130 L (150-400) K/uL MPV 13.40 H (7.40-12.00) fL Neut % (Auto) 83.5 H (48.0-80.0) % Lymph % (Auto) 8.7 L (16.0-40.0) % M[place]at % (Auto) 7.8 (0.0-15.0) % Eos % (Auto) 0.0 (0.0-7.0) % Baso % (Auto) 0.0 (0.0-1.5) % Neut # (Auto) 3.7 (1.4-5.7) K/uL Lymph # (Auto) 0.4 L (0.6-2.4) K/uL Moffat # (Auto) 0.4 (0.0-0.8) K/uL Eos # (Auto) 0.0 (0.0-0.7) K/uL Baso # (Auto) 0.0 (0.0-0.1) K/uL Nucleated RBC % 0.0 /100WBC Nucleated RBCs # 0 K/uL INR 1.37 Sodium (136-148) mmol/L Potassium (3.5-5.1) mmol/L Chloride (98-107) mmol/L Carbon Dioxide (21.0-32.0) mmol/L BUN (7.0-18.0) mg/dL Creatinine (0.8-1.3) mg/dL Est Cr Clr Drug Dosing mL/min Estimated GFR (MDRD) ml/min Glucose (74-106) mg/dL Calcium (8.5-10.1) mg/dL Magnesium 2.1 (1.8-2.4) mg/dL Free T4 (0.76-1.46) ng/dL Free T3 (2.18-3.98) pg/mL 09/08/18 09/08/18 Range/Units 05:52 05:52 WBC (4.0-11.0) K/uL RBC (4.50-5.90) M/uL Hgb (13.0-17.0) g/dL Hct (38.0-50.0) % MCV (80.0-98.0) fL MCH (27.0-32.0) pg MCHC (31.0-37.0) g/dL RDW Std Deviation (28.0-62.0) fl RDW Coeff of Avery (11.0-15.0) % Plt Count (150-400) K/uL MPV (7.40-12.00) fL Neut % (Auto) (48.0-80.0) % Lymph % (Auto) (16.0-40.0) % Moffat % (Auto) (0.0-15.0) % Eos % (Auto) (0.0-7.0) % Baso % (Auto) (0.0-1.5) % Neut # (Auto) (1.4-5.7) K/uL Lymph # (Auto) (0.6-2.4) K/uL Moffat # (Auto) (0.0-0.8) K/uL Eos # (Auto) (0.0-0.7) K/uL Baso # (Auto) (0.0-0.1) K/uL Nucleated RBC % /100WBC Nucleated RBCs # K/uL INR Sodium 138 (136-148) mmol/L Potassium 4.1 (3.5-5.1) mmol/L Chloride 102 (98-107) mmol/L Carbon Dioxide 27.7 (21.0-32.0) mmol/L BUN 16 (7.0-18.0) mg/dL Creatinine 0.8 (0.8-1.3) mg/dL Est Cr Clr Drug Dosing 128.88 mL/min Estimated GFR (MDRD) > 60.0 ml/min Glucose 129 H (74-106) mg/dL Calcium 8.8 (8.5-10.1) mg/dL Magnesium (1.8-2.4) mg/dL Free T4 2.25 H (0.76-1.46) ng/dL Free T3 2.86 (2.18-3.98) pg/mL Satish Results Last 24 Hours: Microbiology 09/07/18 09:00 Aerobic Blood Culture - Preliminary Blood - Venous - Lab Draw NO GROWTH AFTER 1 DAY Anaerobic Blood Culture - Final 09/07/18 08:50 Aerobic Blood Culture - Preliminary Blood - Venous NO GROWTH AFTER 1 DAY Anaerobic Blood Culture - Preliminary NO GROWTH AFTER 1 DAY Med Orders - Current: Current Medications Albuterol/Ipratropium (Duoneb 3.0-0.5 Mg/3 Ml) 3 ml NEB Q4HRRT PRN PRN Reason: Shortness Of Breath/wheezing Diltiazem HCl (Diltiazem) 10 mg IVPUSH Q3H PRN PRN Reason: Tachycardia Furosemide (Lasix) 60 mg IVPUSH TID [facility] Last Admin: 09/08/18 14:48 Dose: 60 mg Heparin Sodium (Porcine) (Heparin Sodium) 5,000 units SUBCUT Q8H [facility] Last Admin: 09/08/18 14:48 Dose: 5,000 units Methimazole (Methimazole) 30 mg PO DAILY [facility] Last Admin: 09/08/18 09:14 Dose: 30 mg Metoprolol Succinate (Toprol Xl) 50 mg PO BID [facility] Last Admin: 09/08/18 08:01 Dose: 50 mg Warfarin Sodium (Coumadin) 10 mg PO DAILY@1400 [facility] Last Admin: 09/08/18 14:48 Dose: 10 mg Discontinued Medications Albuterol/Ipratropium (Duoneb 3.0-0.5 Mg/3 Ml) 3 ml NEB ONETIME ONE Stop: 09/07/18 08:01 Last Admin: 09/07/18 08:08 Dose: 3 ml Diltiazem HCl (Diltiazem) 20 mg IVPUSH ONETIME ONE Stop: 09/07/18 08:05 Last Admin: 09/07/18 08:14 Dose: 20 mg Diltiazem HCl (Diltiazem) 20 mg IVPUSH ONETIME ONE Stop: 09/07/18 08:52 Last Admin: 09/07/18 09:00 Dose: 20 mg Enoxaparin Sodium (Lovenox) 238 mg SUBCUT ONETIME ONE Stop: 09/07/18 09:02 Last Admin: 09/07/18 09:26 Dose: Not Given Enoxaparin Sodium (Lovenox) 238 mg SUBCUT ONETIME ONE Stop: 09/07/18 09:18 Last Admin: 09/07/18 09:40 Dose: 238 mg Furosemide (Lasix) 40 mg IVPUSH NOW ONE Stop: 09/07/18 08:01 Last Admin: 09/07/18 08:11 Dose: 40 mg Furosemide (Lasix) 40 mg IVPUSH TID [facility] Last Admin: 09/08/18 05:26 Dose: 40 mg Sodium Chloride (Normal Saline) 1,000 mls @ 125 mls/hr IV STAT [facility] Last Admin: 09/07/18 08:11 Dose: 125 mls/hr Iopamidol (Isovue Multipack-370 (76%)) 100 ml IVPUSH ONETIME STA Stop: 09/07/18 09:52 Last Admin: 09/07/18 09:52 Dose: 100 ml Methylprednisolone Sodium Succinate (Solu-Medrol) 125 mg IVPUSH ONETIME ONE Stop: 09/07/18 08:01 Last Admin: 09/07/18 08:11 Dose: 125 mg Metoprolol Tartrate (Lopressor) 5 mg IVPUSH NOW STA Stop: 09/07/18 10:42 Last Admin: 09/07/18 11:17 Dose: 5 mg Warfarin Sodium (Coumadin Ask) 1 each PO ONETIME ONE Stop: 09/07/18 13:56 Last Admin: 09/07/18 14:49 Dose: Not Given - Exam General: Alert, Oriented Neck: Supple, JVD Lungs: Clear to Auscultation, Normal Respiratory Effort Cardiovascular: Regular Rate, Regular Rhythm GI/Abdominal Exam: Soft, Non-Tender Extremities: Pedal Edema (+3 leg edema) Skin: Warm, Dry, Intact - Problem List Review Problem List Initiated/Reviewed/Updated: Yes - My Orders Last 24 Hours: My Active Orders 09/07/18 16:03 Diltiazem 10 mg IVPUSH Q3H PRN 09/07/18 21:00 Metoprolol Succinate [Toprol XL] 50 mg PO BID 09/08/18 09:00 methIMAzole 30 mg PO DAILY 09/08/18 14:00 Furosemide [Lasix] 60 mg IVPUSH TID Heparin Sodium 5,000 units SUBCUT Q8H 09/08/18 Lunch Fluid Restriction [DIET] 09/09/18 05:11 CBC WITH AUTO DIFF [HEME] AM CMP [COMPREHENSIVE METABOLIC PN,CMP] [CHEM] AM INR,PT,PROTHROMBIN TIME [COAG] AM 09/10/18 05:11 INR,PT,PROTHROMBIN TIME [COAG] AM 09/11/18 05:11 INR,PT,PROTHROMBIN TIME [COAG] AM - Plan Plan:: 33 yo male admitted with CHF exacerbation. CHF exacerbation: will increase to 60mg lasix TID, echocardiogram ordered Atrial fibrallation: controlled, continue Coumadin hyperthyroidism: on methimazole
[2018-09-09] MEDS: Heparin Sodium 5,000 Units/ML Vial SUBCUT SCH ×3 (05:28→21:44)
[2018-09-09] MEDS: Furosemide 40 MG/4 ML VIAL IVPUSH SCH ×3 (05:28→21:45)
[2018-09-09 06:19] LABS: CHLORIDE,CL 102 mmol/L (98-107); SODIUM,NA 139 mmol/L (136-148)
[2018-09-09] MEDS: Metoprolol Succinate 50 MG Tab.ER PO SCH ×2 (08:16→21:45)
[2018-09-09] MEDS: Methimazole 5 MG Tab PO SCH (08:16)
[2018-09-09] MEDS: Warfarin 10 MG Tab PO SCH (14:47)
--- NOTE | 2018-09-09 17:02 | PCM.PN ---
- General Info Date of Service: 09/09/18 Subjective Update: Afebrile overnight. states he feels better this morning since getting diuresed. No nausea, vomiting. No chest pain. - Patient Data Vitals - Most Recent: Last Vital Signs Temp 36.1 C 09/09/18 16:00 Pulse 94 09/09/18 16:00 Resp 18 09/09/18 16:00 BP 118/89 09/09/18 16:00 Pulse Ox 95 09/09/18 16:00 Weight - Most Recent: 225.345 kg I&O - Last 24 Hours: Intake & Output 09/09/18 09/09/18 09/09/18 06:59 14:59 22:59 Intake Total 800 1000 Output Total 1450 1800 Balance -650 -800 Lab Results Last 24 Hours: Laboratory Results - last 24 hr 09/09/18 09/09/18 09/09/18 Range/Units 05:10 05:10 05:10 WBC 6.42 (4.0-11.0) K/uL RBC 4.07 L (4.50-5.90) M/uL Hgb 11.8 L (13.0-17.0) g/dL Hct 37.1 L (38.0-50.0) % MCV 91.2 (80.0-98.0) fL MCH 29.0 (27.0-32.0) pg MCHC 31.8 (31.0-37.0) g/dL RDW Std Deviation 52.2 (28.0-62.0) fl RDW Coeff of Avery 16 H (11.0-15.0) % Plt Count 165 (150-400) K/uL MPV 13.80 H (7.40-12.00) fL Neut % (Auto) 70.4 (48.0-80.0) % Lymph % (Auto) 19.0 (16.0-40.0) % [place] % (Auto) 9.5 (0.0-15.0) % Eos % (Auto) 0.9 (0.0-7.0) % Baso % (Auto) 0.2 (0.0-1.5) % Neut # (Auto) 4.5 (1.4-5.7) K/uL Lymph # (Auto) 1.2 (0.6-2.4) K/uL [place] # (Auto) 0.6 (0.0-0.8) K/uL Eos # (Auto) 0.1 (0.0-0.7) K/uL Baso # (Auto) 0.0 (0.0-0.1) K/uL Nucleated RBC % 0.0 /100WBC Nucleated RBCs # 0 K/uL INR 1.59 Sodium 139 (136-148) mmol/L Potassium 3.5 (3.5-5.1) mmol/L Chloride 102 (98-107) mmol/L Carbon Dioxide 30.4 (21.0-32.0) mmol/L BUN 21 H (7.0-18.0) mg/dL Creatinine 1.0 (0.8-1.3) mg/dL Est Cr Clr Drug Dosing 103.10 mL/min Estimated GFR (MDRD) > 60.0 ml/min Glucose 84 (74-106) mg/dL Calcium 8.5 (8.5-10.1) mg/dL Total Bilirubin 1.4 H (0.2-1.0) mg/dL AST 22 (15-37) IU/L ALT 31 (14-63) IU/L Alkaline Phosphatase 173 H (46-116) U/L Total Protein 7.2 (6.4-8.2) g/dL Albumin 3.2 L (3.4-5.0) g/dL Globulin 4.0 (2.6-4.0) g/dL Albumin/Globulin Ratio 0.8 L (0.9-1.6) Satish Results Last 24 Hours: Microbiology 09/07/18 09:00 Aerobic Blood Culture - Preliminary Blood - Venous - Lab Draw NO GROWTH AFTER 2 DAYS Anaerobic Blood Culture - Final 09/07/18 08:50 Aerobic Blood Culture - Preliminary Blood - Venous NO GROWTH AFTER 2 DAYS Anaerobic Blood Culture - Preliminary NO GROWTH AFTER 2 DAYS Med Orders - Current: Current Medications Albuterol/Ipratropium (Duoneb 3.0-0.5 Mg/3 Ml) 3 ml NEB Q4HRRT PRN PRN Reason: Shortness Of Breath/wheezing Diltiazem HCl (Diltiazem) 10 mg IVPUSH Q3H PRN PRN Reason: Tachycardia Furosemide (Lasix) 60 mg IVPUSH TID [facility] Last Admin: 09/09/18 14:46 Dose: 60 mg Heparin Sodium (Porcine) (Heparin Sodium) 5,000 units SUBCUT Q8H [facility] Last Admin: 09/09/18 14:46 Dose: 5,000 units Methimazole (Methimazole) 30 mg PO DAILY [facility] Last Admin: 09/09/18 08:16 Dose: 30 mg Metoprolol Succinate (Toprol Xl) 50 mg PO BID [facility] Last Admin: 09/09/18 08:16 Dose: 50 mg Warfarin Sodium (Coumadin) 10 mg PO DAILY@1400 [facility] Last Admin: 09/09/18 14:47 Dose: 10 mg Discontinued Medications Albuterol/Ipratropium (Duoneb 3.0-0.5 Mg/3 Ml) 3 ml NEB ONETIME ONE Stop: 09/07/18 08:01 Last Admin: 09/07/18 08:08 Dose: 3 ml Diltiazem HCl (Diltiazem) 20 mg IVPUSH ONETIME ONE Stop: 09/07/18 08:05 Last Admin: 09/07/18 08:14 Dose: 20 mg Diltiazem HCl (Diltiazem) 20 mg IVPUSH ONETIME ONE Stop: 09/07/18 08:52 Last Admin: 09/07/18 09:00 Dose: 20 mg Enoxaparin Sodium (Lovenox) 238 mg SUBCUT ONETIME ONE Stop: 09/07/18 09:02 Last Admin: 09/07/18 09:26 Dose: Not Given Enoxaparin Sodium (Lovenox) 238 mg SUBCUT ONETIME ONE Stop: 09/07/18 09:18 Last Admin: 09/07/18 09:40 Dose: 238 mg Furosemide (Lasix) 40 mg IVPUSH NOW ONE Stop: 09/07/18 08:01 Last Admin: 09/07/18 08:11 Dose: 40 mg Furosemide (Lasix) 40 mg IVPUSH TID [facility] Last Admin: 09/08/18 05:26 Dose: 40 mg Sodium Chloride (Normal Saline) 1,000 mls @ 125 mls/hr IV STAT [facility] Last Admin: 09/07/18 08:11 Dose: 125 mls/hr Iopamidol (Isovue Multipack-370 (76%)) 100 ml IVPUSH ONETIME STA Stop: 09/07/18 09:52 Last Admin: 09/07/18 09:52 Dose: 100 ml Methylprednisolone Sodium Succinate (Solu-Medrol) 125 mg IVPUSH ONETIME ONE Stop: 09/07/18 08:01 Last Admin: 09/07/18 08:11 Dose: 125 mg Metoprolol Tartrate (Lopressor) 5 mg IVPUSH NOW STA Stop: 09/07/18 10:42 Last Admin: 09/07/18 11:17 Dose: 5 mg Warfarin Sodium (Coumadin Ask) 1 each PO ONETIME ONE Stop: 09/07/18 13:56 Last Admin: 09/07/18 14:49 Dose: Not Given - Exam General: Alert, Oriented, Cooperative, No Acute Distress Lungs: Clear to Auscultation, Normal Respiratory Effort. No: Crackles, Wheezing Cardiovascular: Regular Rate, Regular Rhythm GI/Abdominal Exam: Other (large habitus. Non tender.) Extremities: Pedal Edema - Problem List Review Problem List Initiated/Reviewed/Updated: Yes - My Orders Last 24 Hours: My Active Orders 09/09/18 11:27 Consult to Physician [CONS] Routine 09/09/18 11:28 Notify Provider Consults [RC] ASDIRECTED 09/10/18 05:11 CMP [COMPREHENSIVE METABOLIC PN,CMP] [CHEM] AM - Plan Plan:: A: 1. Acute CHF exacerbation 2. Anasarca due to above 3. Afib, rate controlled 4. Hyperthyroidism 5. Morbid obesity P: 1. Acute CHF exacerbation- continue lasix 60 mg IV TID. Strict I/O. Fluid restriction and daily weights. Placed cardiology consult. 2. Afib, rate controlled. Continue metoprolol 50 mg PO BID. 3. Hyperthyroidism- continue methimazole. Dispo: 1-2 days, pending adequate diureses.
[2018-09-10] MEDS: Heparin Sodium 5,000 Units/ML Vial SUBCUT SCH (05:16)
[2018-09-10] MEDS: Furosemide 40 MG/4 ML VIAL IVPUSH SCH ×2 (05:18→14:17)
[2018-09-10 06:58] LABS: CHLORIDE,CL 100 mmol/L (98-107); SODIUM,NA 140 mmol/L (136-148)
[2018-09-10] MEDS: Methimazole 5 MG Tab PO SCH (08:32)
[2018-09-10] MEDS ORDERED: Magnesium Sulfate/Water 2 GM in Premix Bag 1 BAG IV ONE (08:33)
[2018-09-10] MEDS: Metoprolol Succinate 50 MG Tab.ER PO SCH (08:33)
[2018-09-10] MEDS ORDERED: Potassium Chloride 20 MEQ Tab.ER PO ONE (08:34)
[2018-09-10] MEDS: Warfarin 10 MG Tab PO SCH (14:16)
--- NOTE | 2018-09-10 16:57 | CONS ---
DATE OF CONSULTATION: DATE OF : 1985 PRIMARY CARE PHYSICIAN: None PCP REASON FOR CONSULTATION: Heart failure. HISTORY OF PRESENT ILLNESS: This is a 33-year-old male who has a past medical history of hypothyroidism, on antithyroid medication; as well as chronic persistent atrial fibrillation; and hypertension, who presented to the hospital at this time because of one week of shortness of breath, leg swelling, chest pain, and abdominal pain. He was treated for decompensated heart failure with diuretics. He has lost almost 22 pounds over the past 2 to 3 days by diuretic treatment, from 518 to 484 today, 34 pounds. He feels much improved in terms of breathing and leg swelling. One week prior to hospitalization, he started having chest pain, shortness of breath, leg swelling, orthopnea, no fever, and was tired. He also was admitted the other 2 times, in March 2018 as well as in June. He works here for 21 days and goes back home to [place] for 7 days. After he was admitted to the hospital, since March last year, he tried to make an appointment, but there had always been 2 to 3 months' waiting time. The appointment would always be at the time that he was here in [place] and not back home. He claimed that he had been taking Lasix 40 mg once a day, Coumadin, Toprol-XL 50 mg twice a day, and KCl 20. He never missed a dose of medication. However, he did not control his food. 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 He has been diagnosed with hypothyroidism for a long time, for at least 7 years, as well as he is on Coumadin for at least 2 years. He never had cardioversion in the past. He denies palpitation. He denied also alcohol consumption. PAST MEDICAL HISTORY: Includes hypothyroidism, hypertension, morbid obesity, and congestive heart failure. ALLERGIES: No known drug allergies. CURRENT MEDICATIONS: Home medications includes methimazole, Lasix 40 mg once a day, Coumadin, Toprol- XL 50 mg twice a day, and KCl 20 mEq once a day. His medication while he is in the hospital includes methimazole 30 mg once a day, Toprol-XL 50 mg twice a day, Coumadin 10 mg once a day, Lasix 60 mg IV t.i.d., and diltiazem 10 mg IV push. IMAGING: EKG in June 2018 showed atrial fibrillation. Echocardiogram done in the hospital, nondiagnostic. I could not see endocardial lining as well. REVIEW OF SYSTEMS: Except indicated in the HPI, otherwise has been negative. SOCIAL HISTORY: He chews tobacco. No drug use. No alcohol consumption. FAMILY HISTORY: Father has a history of heart attack. Mother did not have a heart history. PHYSICAL EXAMINATION: VITAL SIGNS: Initial blood pressure was 152/88. The current blood pressure is 126/71. Heart rate initially was 104 and current heart rate is 80 to 100. O2 saturation is 91 on room air. Temperature 96.6. Weight has come down from 518 to 484 pounds. HEENT: JVD is mildly elevated. HEART: Totally irregular. LUNGS: Minimal crackle bilaterally. ABDOMEN: Soft and nontender. Bowel sounds present. No hepatosplenomegaly. EXTREMITIES: Legs, edema 1+ with venous stasis. INVESTIGATIONS: CBC showed WBC 6, hematocrit of 37, hemoglobin is 11, and platelet . INR 1.7. Sodium 140, potassium 3.5, chloride 100, bicarb 32, BUN 22, and creatinine 1.0. Alkaline phosphatase 178. TSH is 0.01. BNP is . Troponin is negative x1. ASSESSMENT AND PLAN: This is a 33-year-old male who has chronic persistent atrial fibrillation; hypertension, on Coumadin; subtherapeutic INR with decompensated heart failure. The echocardiogram that was done in the hospital was nondiagnostic. It probably needs to be repeated with a contrast, but we cannot do echo with contrast in the hospital. We will arrange it as an outpatient. Recommended to continue the Lasix, but increase the dose from 40 to 80 mg once a day. He should be on Coumadin for INR for stroke risk reduction from atrial fibrillation. He was probably in atrial fibrillation for a long period of time, so we will probably do rate control for him. He probably needs Zio patch to asses his heart rate. His hypothyroidism needs to be well controlled. Since March last year, he has never seen a regular doctor at all, either at home in [place] or here in [place]. He needs to establish with a new primary care doctor who can manage his hypothyroidism. He is also encouraged to stay on a low- sodium diet as well as a heart-healthy diet. MAURI GORE /[id number]
--- NOTE | 2018-09-11 11:36 | PCM.SN ---
- Free Text/Narrative Note: I was informed by nursing staff that the patient wanted to leave. I was in clinic and instructed nursing staff to inform the patient that I would be on the floor to discharge him after clinic. The patient was informed about this, however, he still left AMA.
--- NOTE | 2018-09-11 12:17 | ECHO ---
EXAM DATE: 09/10/18 PATIENT'S AGE: 33 The echocardiogram report can be seen in this patient's EMR (Electronic Medical Record) in the Reports section. The report has also been scanned into PACs. ROLAND
== END 2018-09-10 15:45 | disposition left against medical advice (07) | DRG 292 ==
LOC: MW.ED 07:48 → MW.MS 10:49 → OBSVTOIN 09-10 10:38
PROVIDERS: ADMIT Internal Medicine; ATTEND Internal Medicine
DX: I11.0 Hypertensive heart disease with heart failure (principal); I48.1 Persistent atrial fibrillation; Z68.45 Body mass index [BMI] 70 or greater, adult; I50.33 Acute on chronic diastolic (congestive) heart failure; F17.210 Nicotine dependence, cigarettes, uncomplicated; E66.01 Morbid (severe) obesity due to excess calories; E05.90 Thyrotoxicosis, unspecified without thyrotoxic crisis or storm; Z79.01 Long term (current) use of anticoagulants; Z79.899 Other long term (current) drug therapy
CPT/HCPCS: 36415; 71045; 71045-26; 71275; 71275-26; 80048; 80053; 80305-QW; 81003; 82550; 83735; 83880; 84100; 84439; 84443; 84481; 84484; 85025; 85379; 85610; 87040; 93005; 93306; 94640; 96361; 96372; 96374; 96375; 96376; 99284; 99285-25; A4217; A9270-GY; G0378; J1644; J1650; J1940; J2930; J3475; J3490; J7040; J7620-GY; Q9967

== ENCOUNTER 2018-12-06 09:21 | Emergency (ER) | payer SELFPAY ==
[2018-12-06] MEDS ORDERED: Sodium Chloride 0.9% 1,000 ML IV SCH (10:00)
--- NOTE | 2018-12-06 10:11 | EDM.PDOC ---
ED HPI GENERAL MEDICAL PROBLEM - General Chief Complaint: Lower Extremity Injury/Pain Stated Complaint: BLEEDING FROM FOOT Time Seen by Provider: 12/06/18 10:02 Source of Information: Reports: Patient History Limitations: Reports: No Limitations - History of Present Illness INITIAL COMMENTS - FREE TEXT/NARRATIVE: HISTORY AND PHYSICAL: History of present illness: Patient is a 33-year-old male who presents to the emergency room with complaints of bleeding from an open sore to the left lower extremity. He states while at work he "spontaneously started bleeding" from a long-standing sore to the left lower anterior bardales. He has noticed this sore for several months and states it'll occasionally start bleeding. Patient is originally from [place], although does work in [place] for 20 days on and then returns home for 10 days. He receives his routine health care and chronic illness management from his primary care in [place]. Tdap is UTD. Patient was admitted approximately 2 months ago for shortness of breath and lower extremity edema. Over the past 1-1/2 years he states he has had over 200 pounds weight gain. Patient denies any fever, chills, headache, change in vision , syncope or near syncope. Denies any chest pain, back pain, shortness of breath or cough. Denies any abdominal pain, nausea, vomiting, diarrhea, constipation or dysuria. Has not noted any blood in urine or stool. Patient has been eating and drinking appropriately. Review of systems: As per history of present illness and below otherwise all systems reviewed and negative. Past medical history: As per history of present illness and as reviewed below otherwise noncontributory. Surgical history: As per history of present illness and as reviewed below otherwise noncontributory. Social history: See social history for further information Family history: As per history of present illness and as reviewed below otherwise noncontributory. Physical exam: General: Chronically ill-appearing 33-year-old male. Large body habitus. Nontoxic appearing and in no acute distress. HEENT: Atraumatic, normocephalic, pupils equal and reactive bilaterally, negative for conjunctival pallor or scleral icterus, mucous membranes moist, throat clear, neck supple, nontender, trachea midline. No drooling or trismus noted. No meningeal signs. No hot potato voice noted. Lungs: Clear to auscultation, breath sounds equal bilaterally, chest nontender. Heart: S1S2, irregular rate and rhythm (history of afib) without overt murmur Abdomen: Limited due to large body habitus. Soft, obese, nontender. Negative for masses. Negative for costovertebral tenderness. Pelvis: Stable nontender. Skin: 2 cm open sore to the left anterior distal bardales. Appears slightly jaundice /pale. Skin is otherwise intact, warm, dry. No lesions or rashes noted. Extremities: Moves all extremities per self without difficulty or deficits, negative for cords or calf pain, +2 pitting edema to bilateral LE. See SKIN for details. Neurovascular unremarkable. Neuro: Awake, alert, oriented. Cranial nerves II through XII unremarkable. Cerebellum unremarkable. Motor and sensory unremarkable throughout. Exam nonfocal. Notes: Dr Dora gilliam briefly saw this patient and entered in orders. Assumed care of patient at beginning of shift. The small skin lesion/skin tear was cleaned and Steri-Strips were applied. Not able to provide sutures for this wound. Patient has made multiple comments about needing to be discharged "soon". I did discuss lab results with patient, including his bilirubin being elevated ( moreso than previous visits). He also has positive nitrates/bacteria in urine; received Rocephin while here. Risks versus benefits (including but not limited to serious injury or even ) were reviewed and discussed with patient. He refuses admission. He states he will be returning home in the next several days and follow-up with his primary care provider at that time. Patient will sign out AGAINST MEDICAL ADVICE. Signs and symptoms that would prompt him to return to the emergency room and/or call for emergency transport were reviewed and discussed. Diagnostics: CBC, CMP, PT/INR, CXR, EKG, X-ray left lower tib/fib Therapeutics: NS, Rocephin Prescription: Augmentin Impression: UTI Elevated bilirubin Skin lesion Left Against Medical Advise Plan: 1. You declined admission today. If you change your mind, symptoms worse, or new symtoms develop - return to the ED. 2. Please keep the skin clean and dry. Continue to monitor the area. Due to the chronic nature of this sore you may need the biopsy of the skin 3. Increase your oral fluids. Take the antibiotic as directed. 4. Follow-up with your primary care provider in [place] when he returned home. Return to the ED as needed and as discussed. Definitive disposition and diagnosis as appropriate pending reevaluation and review of above. - Related Data Allergies Allergy/AdvReac Type Severity Reaction Status Date / Time No Known Allergies Allergy Verified 12/06/18 09:36 Home Meds: Home Meds Metoprolol Succinate 50 mg PO BID 03/15/18 [History] Potassium Chloride 20 meq PO DAILY #30 tablet.er 03/15/18 [Rx] methIMAzole [Methimazole] 30 mg PO DAILY 03/15/18 [History] Furosemide [Lasix] 40 mg PO TID 07/02/18 [History] Warfarin [Coumadin] 5 mg PO DAILY 07/02/18 [History] Amoxicillin/Clavulanate K [Augmentin 875-125 MG] 1 tab PO BID 10 Days #20 tablet 12/06/18 [Rx] Past Medical History Cardiovascular History: Reports: Afib, Hypertension, Other (See Below) Other Cardiovascular History: CHF Endocrine/Metabolic History: Reports: Hypothyroidism - Infectious Disease History Infectious Disease History: Reports: Chicken Pox - Past Surgical History Cardiovascular Surgical History: Reports: None Social & Family History - Family History Family Medical History: Noncontributory - Tobacco Use Smoking Status *Q: Current Every Day Smoker Years of Tobacco use: 20 Packs/Tins Daily: 0.5 - Caffeine Use Caffeine Use: Reports: Coffee Other Caffeine Use: Every day, a pot a coffee a day, two cokes a day, - Recreational Drug Use Recreational Drug Use: No Review of Systems - Review of Systems Review Of Systems: ROS reveals no pertinent complaints other than HPI. ED EXAM, GENERAL - Physical Exam Exam: See Below (See dictation) Course - Vital Signs Last Recorded V/S: Last Vital Signs Temp 98.0 F 12/06/18 09:31 Pulse 98 12/06/18 09:31 Resp 20 12/06/18 09:31 BP 119/95 H 12/06/18 09:31 Pulse Ox 98 12/06/18 09:31 - Orders/Labs/Meds Orders: Active Orders 24 hr Category Date Time Status Communication Order [RC] STAT Care 12/06/18 10:30 Active EKG Documentation Completion [RC] STAT Care 12/06/18 09:49 Active Chest 1V Frontal [CR] Stat Exams 12/06/18 09:49 Taken Tibia Fibula Lt [CR] Stat Exams 12/06/18 10:03 Taken CULTURE URINE [RM] Stat Lab 12/06/18 10:15 Received Sodium Chloride 0.9% [Normal Saline] 1,000 ml Med 12/06/18 10:00 Active IV STAT Medication Orders Sodium Chloride (Normal Saline) 1,000 mls @ 125 mls/hr IV STAT NOAH Last Admin: 12/06/18 10:11 Dose: 125 mls/hr Labs: Laboratory Tests 12/06/18 12/06/18 12/06/18 Range/Units 10:07 10:07 10:07 WBC 4.84 (4.0-11.0) K/uL RBC 4.15 L (4.50-5.90) M/uL Hgb 11.8 L (13.0-17.0) g/dL Hct 36.8 L (38.0-50.0) % MCV 88.7 (80.0-98.0) fL MCH 28.4 (27.0-32.0) pg MCHC 32.1 (31.0-37.0) g/dL RDW Std Deviation 59.5 (28.0-62.0) fl RDW Coeff of Avery 19 H (11.0-15.0) % Plt Count 162 (150-400) K/uL MPV 11.70 (7.40-12.00) fL Neut % (Auto) 73.7 (48.0-80.0) % Lymph % (Auto) 15.1 L (16.0-40.0) % Castro % (Auto) 9.1 (0.0-15.0) % Eos % (Auto) 1.7 (0.0-7.0) % Baso % (Auto) 0.4 (0.0-1.5) % Neut # (Auto) 3.6 (1.4-5.7) K/uL Lymph # (Auto) 0.7 (0.6-2.4) K/uL Castro # (Auto) 0.4 (0.0-0.8) K/uL Eos # (Auto) 0.1 (0.0-0.7) K/uL Baso # (Auto) 0.0 (0.0-0.1) K/uL Nucleated RBC % 0.0 /100WBC Nucleated RBCs # 0 K/uL INR 1.74 Sodium 140 (136-148) mmol/L Potassium 3.3 L (3.5-5.1) mmol/L Chloride 102 (98-107) mmol/L Carbon Dioxide 26.9 (21.0-32.0) mmol/L BUN 10 (7.0-18.0) mg/dL Creatinine 0.9 (0.8-1.3) mg/dL Est Cr Clr Drug Dosing 114.56 mL/min Estimated GFR (MDRD) > 60.0 ml/min Glucose 97 (74-106) mg/dL Calcium 9.2 (8.5-10.1) mg/dL Total Bilirubin 2.8 H (0.2-1.0) mg/dL AST 21 (15-37) IU/L ALT 23 (14-63) IU/L Alkaline Phosphatase 171 H (46-116) U/L Troponin I < 0.050 (0.000-0.056) ng/mL Total Protein 7.2 (6.4-8.2) g/dL Albumin 3.3 L (3.4-5.0) g/dL Globulin 3.9 (2.6-4.0) g/dL Albumin/Globulin Ratio 0.9 (0.9-1.6) Urine Color Urine Appearance Urine pH (5.0-8.0) Ur Specific [place] (1.001-1.035) Urine Protein (NEGATIVE) mg/dL Urine Glucose (UA) (NEGATIVE) mg/dL Urine Ketones (NEGATIVE) mg/dL Urine Occult Blood (NEGATIVE) Urine Nitrite (NEGATIVE) Urine Bilirubin (NEGATIVE) Urine Ictotest Urine Urobilinogen (<2.0) EU/dL Ur Leukocyte Esterase (NEGATIVE) Urine RBC (0-2/HPF) Urine WBC (0-5/HPF) Ur Epithelial Cells (NONE-FEW) Urine Bacteria (NEGATIVE) Urine Mucus (NONE-MOD) 12/06/18 Range/Units 10:15 WBC (4.0-11.0) K/uL RBC (4.50-5.90) M/uL Hgb (13.0-17.0) g/dL Hct (38.0-50.0) % MCV (80.0-98.0) fL MCH (27.0-32.0) pg MCHC (31.0-37.0) g/dL RDW Std Deviation (28.0-62.0) fl RDW Coeff of Avery (11.0-15.0) % Plt Count (150-400) K/uL MPV (7.40-12.00) fL Neut % (Auto) (48.0-80.0) % Lymph % (Auto) (16.0-40.0) % Castro % (Auto) (0.0-15.0) % Eos % (Auto) (0.0-7.0) % Baso % (Auto) (0.0-1.5) % Neut # (Auto) (1.4-5.7) K/uL Lymph # (Auto) (0.6-2.4) K/uL Castro # (Auto) (0.0-0.8) K/uL Eos # (Auto) (0.0-0.7) K/uL Baso # (Auto) (0.0-0.1) K/uL Nucleated RBC % /100WBC Nucleated RBCs # K/uL INR Sodium (136-148) mmol/L Potassium (3.5-5.1) mmol/L Chloride (98-107) mmol/L Carbon Dioxide (21.0-32.0) mmol/L BUN (7.0-18.0) mg/dL Creatinine (0.8-1.3) mg/dL Est Cr Clr Drug Dosing mL/min Estimated GFR (MDRD) ml/min Glucose (74-106) mg/dL Calcium (8.5-10.1) mg/dL Total Bilirubin (0.2-1.0) mg/dL AST (15-37) IU/L ALT (14-63) IU/L Alkaline Phosphatase (46-116) U/L Troponin I (0.000-0.056) ng/mL Total Protein (6.4-8.2) g/dL Albumin (3.4-5.0) g/dL Globulin (2.6-4.0) g/dL Albumin/Globulin Ratio (0.9-1.6) Urine Color ORANGE Urine Appearance CLEAR Urine pH 6.0 (5.0-8.0) Ur Specific [place] >= 1.030 (1.001-1.035) Urine Protein 100 H (NEGATIVE) mg/dL Urine Glucose (UA) NEGATIVE (NEGATIVE) mg/dL Urine Ketones NEGATIVE (NEGATIVE) mg/dL Urine Occult Blood NEGATIVE (NEGATIVE) Urine Nitrite POSITIVE H (NEGATIVE) Urine Bilirubin SMALL H (NEGATIVE) Urine Ictotest NEGATIVE Urine Urobilinogen 2.0 H (<2.0) EU/dL Ur Leukocyte Esterase NEGATIVE (NEGATIVE) Urine RBC 0-1 (0-2/HPF) Urine WBC 0-1 (0-5/HPF) Ur Epithelial Cells RARE (NONE-FEW) Urine Bacteria 2+ H (NEGATIVE) Urine Mucus LIGHT (NONE-MOD) Meds: Medications Generic Name Dose Route Start Last Admin Trade Name Freq PRN Reason Stop Dose Admin Sodium Chloride 1,000 mls @ 125 mls/hr 12/06/18 10:00 12/06/18 10:11 Normal Saline IV 125 mls/hr STAT NOAH Administration Discontinued Medications Generic Name Dose Route Start Last Admin Trade Name Freq PRN Reason Stop Dose Admin Ceftriaxone Sodium/Dextrose 1 50 mls @ 100 mls/hr 12/06/18 10:53 12/06/18 11: 23 gm/ Premix IV 12/06/18 11:22 100 mls/hr ONETIME ONE Administration Departure - Departure Time of Disposition: 11:55 Disposition: Against Medical Advice 07 Clinical Impression: Elevated bilirubin, Skin lesion of left leg, Left against medical advice Urinary tract infection Qualifiers: Urinary tract infection type: site unspecified Hematuria presence: without hematuria Qualified Code(s): N39.0 - Urinary tract infection, site not specified - Discharge Information Prescriptions: Amoxicillin/Clavulanate K [Augmentin 875-125 MG] 1 tab PO BID 10 Days #20 tablet Referrals: PCP,Unknown [Primary Care Provider] - Forms: ED Department Discharge Additional Instructions: The following information is given to patients seen in the emergency department who are being discharged to home. This information is to outline your options for follow-up care. We provide all patients seen in our emergency department with a follow-up referral. The need for follow-up, as well as the timing and circumstances, are variable depending upon the specifics of your emergency department visit. If you don't have a primary care physician on staff, we will provide you with a referral. We always advise you to contact your personal physician following an emergency department visit to inform them of the circumstance of the visit and for follow-up with them and/or the need for any referrals to a consulting specialist. The emergency department will also refer you to a specialist when appropriate. This referral assures that you have the opportunity for follow-up care with a specialist. All of these measure are taken in an effort to provide you with optimal care, which includes your follow-up. Under all circumstances we always encourage you to contact your private physician who remains a resource for coordinating your care. When calling for follow-up care, please make the office aware that this follow-up is from your recent emergency room visit. If for any reason you are refused follow-up, please contact the [facility] Emergency Department at and asked to speak to the emergency department charge nurse. [facility] [address] [place] [id number] [place] [address] 1. You declined admission today. If you change your mind, symptoms worse, or new symtoms develop - return to the ED. 2. Please keep the skin clean and dry. Continue to monitor the area. Due to the chronic nature of this sore you may need the biopsy of the skin 3. Increase your oral fluids. Take the antibiotic as directed. 4. Follow-up with your primary care provider in [place] when he returned home. Please have the bilirubin and skin lesion re-addressed. Return to the ED as needed and as discussed. - My Orders Last 24 Hours: My Active Orders 12/06/18 10:03 Tibia Fibula Lt [CR] Stat 12/06/18 10:30 Communication Order [RC] STAT - Assessment/Plan Last 24 Hours: My Active Orders 12/06/18 10:03 Tibia Fibula Lt [CR] Stat 12/06/18 10:30 Communication Order [RC] STAT
[2018-12-06] MEDS ORDERED: cefTRIAXone 1 GM in Premix Bag 1 BAG IV ONE (10:53)
[2018-12-06 11:02] LABS: CHLORIDE,CL 102 mmol/L (98-107); SODIUM,NA 140 mmol/L (136-148)
--- NOTE | 2018-12-06 12:00 | CR ---
INDICATION: SOB. Cough. TECHNIQUE: Upright portable AP image of the chest. COMPARISON: 09/07/2018. FINDINGS: Stable moderate cardiomegaly. Lungs and pleural spaces clear. Pulmonary veins grossly normal in caliber. No significant bony abnormality. IMPRESSION: 1. Moderate cardiomegaly. 2. Clear lungs. Dictated by Marcial Guerin MD @ Dec 06 2018 11:57AM Signed by Dr. Marcial Guerin @ Dec 06 2018 11:59AM
--- NOTE | 2018-12-06 12:02 | CR ---
INDICATION: Pain/laceration/swelling. TECHNIQUE: AP and lateral views of the left tibia and fibula, 4 images. COMPARISON: None. FINDINGS: No soft tissue air or foreign body. No fracture or other acute bony abnormality. IMPRESSION: Negative left tibia and fibula. Dictated by Marcial Guerin MD @ Dec 06 2018 11:57AM Signed by Dr. Marcial Guerin @ Dec 06 2018 12:00PM
[2018-12-06] MEDS ORDERED: cefTRIAXone 1 GM in Lidocaine 1% 4 ML IM ONE ×2 (12:20→12:23)
[2018-12-06] MEDS ORDERED: cefTRIAXone 500 MG Vial ONE (12:26)
== END 2018-12-06 12:50 | disposition left against medical advice (07) ==
LOC: MW.ED 09:21
DX: L98.9 Disorder of the skin and subcutaneous tissue, unspecified (principal); N39.0 Urinary tract infection, site not specified; E80.7 Disorder of bilirubin metabolism, unspecified; I11.0 Hypertensive heart disease with heart failure; I50.9 Heart failure, unspecified; F17.210 Nicotine dependence, cigarettes, uncomplicated; I48.91 Unspecified atrial fibrillation; Z79.01 Long term (current) use of anticoagulants; Z79.899 Other long term (current) drug therapy
CPT/HCPCS: 36415; 71045; 73590; 80053; 81001; 84484; 85025; 85610; 87086; 87088; 87186; 93005; 96361; 96374; 99284; J0696; J2001; J7040

== ENCOUNTER 2019-03-08 22:01 | Emergency (ER) | payer MEDICAID, OTHER ==
--- NOTE | 2019-03-08 22:17 | EDM.PDOC ---
ED HPI GENERAL MEDICAL PROBLEM - General Chief Complaint: ENT Problem Stated Complaint: TOOTHACHE/SWOLLEN GUMS Time Seen by Provider: 03/08/19 22:12 - History of Present Illness INITIAL COMMENTS - FREE TEXT/NARRATIVE: HISTORY AND PHYSICAL: History of present illness: Patient 33-year-old white male presents with concern of left maxillary swelling and dental pain worse over last several days patient has been unable to secure a dental appointment is working on that. There's been no fever chills nausea vomiting or other complaints Review of systems: As per history of present illness and below otherwise all systems reviewed and negative. Past medical history: As per history of present illness and as reviewed below otherwise noncontributory. Surgical history: As per history of present illness and as reviewed below otherwise noncontributory. Social history: No reported history of drug or alcohol abuse. Family history: As per history of present illness and as reviewed below otherwise noncontributory. Physical exam: HEENT: Atraumatic, normocephalic, pupils reactive, negative for conjunctival pallor or scleral icterus, mucous membranes moist, throat clear, neck supple, nontender, trachea midline. Generally poor dentition multiple dental caries noted left upper maxillary swelling noted left upper molar henrik /gingival edema noted Lungs: Clear to auscultation, breath sounds equal bilaterally, chest nontender. Heart: S1S2, regular, negative for clicks, rubs, or JVD. Abdomen: Soft, nondistended, nontender. Negative for masses or hepatosplenomegaly. Negative for costovertebral tenderness. Pelvis: Stable nontender. Genitourinary: Deferred. Rectal: Deferred. Extremities: Atraumatic, negative for cords or calf pain. Neurovascular unremarkable. Neuro: Awake, alert, oriented. Cranial nerves II through XII unremarkable. Cerebellum unremarkable. Motor and sensory unremarkable throughout. Exam nonfocal. Diagnostics: Deferred Therapeutics: Dental balls Impression: #1 dentalgia #2 dental abscess Definitive disposition and diagnosis as appropriate pending reevaluation and review of above. - Related Data Allergies Allergy/AdvReac Type Severity Reaction Status Date / Time No Known Allergies Allergy Verified 12/06/18 09:36 Home Meds: Home Meds Metoprolol Succinate 50 mg PO BID 03/15/18 [History] Potassium Chloride 20 meq PO DAILY #30 tablet.er 03/15/18 [Rx] methIMAzole [Methimazole] 30 mg PO DAILY 03/15/18 [History] Furosemide [Lasix] 40 mg PO TID 07/02/18 [History] Warfarin [Coumadin] 5 mg PO DAILY 07/02/18 [History] Amoxicillin/Clavulanate K [Augmentin 875-125 MG] 1 tab PO BID 10 Days #20 tablet 12/06/18 [Rx] Past Medical History Cardiovascular History: Reports: Afib, Hypertension, Other (See Below) Other Cardiovascular History: CHF Endocrine/Metabolic History: Reports: Hypothyroidism - Infectious Disease History Infectious Disease History: Reports: Chicken Pox - Past Surgical History Cardiovascular Surgical History: Reports: None Social & Family History - Family History Family Medical History: Noncontributory - Caffeine Use Caffeine Use: Reports: Coffee Other Caffeine Use: Every day, a pot a coffee a day, two cokes a day, ED ROS GENERAL - Review of Systems Review Of Systems: Comprehensive ROS is negative, except as noted in HPI. ED EXAM, GENERAL - Physical Exam Exam: See Below (See dictation) Departure - Departure Time of Disposition: 22:15 Disposition: Home, Self-Care 01 Condition: Good Clinical Impression: Dental caries, Dental abscess, Dentalgia - Discharge Information Referrals: PCP,Not In Area [Primary Care Provider] - Additional Instructions: The following information is given to patients seen in the emergency department who are being discharged to home. This information is to outline your options for follow-up care. We provide all patients seen in our emergency department with a follow-up referral. The need for follow-up, as well as the timing and circumstances, are variable depending upon the specifics of your emergency department visit. If you don't have a primary care physician on staff, we will provide you with a referral. We always advise you to contact your personal physician following an emergency department visit to inform them of the circumstance of the visit and for follow-up with them and/or the need for any referrals to a consulting specialist. The emergency department will also refer you to a specialist when appropriate. This referral assures that you have the opportunity for followup care with a specialist. All of these measure are taken in an effort to provide you with optimal care, which includes your followup. Under all circumstances we always encourage you to contact your private physician who remains a resource for coordinating your care. When calling for followup care, please make the office aware that this follow-up is from your recent emergency room visit. If for any reason you are refused follow-up, please contact the [facility] emergency department at and asked to speak to the emergency department charge nurse. Penicillin is prescribed dental balls directed follow-up dentist return as needed as discussed
== END 2019-03-08 22:20 | disposition home or self-care (01) ==
LOC: MW.ED 22:01
DX: K04.7 Periapical abscess without sinus (principal); K02.9 Dental caries, unspecified; I11.0 Hypertensive heart disease with heart failure; I50.9 Heart failure, unspecified; I48.91 Unspecified atrial fibrillation; E03.9 Hypothyroidism, unspecified; Z79.01 Long term (current) use of anticoagulants; Z79.899 Other long term (current) drug therapy
CPT/HCPCS: 99282; 99283

== ENCOUNTER 2019-03-10 09:56 | Emergency (ER) | payer OTHER ==
[2019-03-10] MEDS ORDERED: Sodium Chloride 0.9% 1,000 ML IV ONE (10:10)
[2019-03-10] MEDS ORDERED: Clindamycin Phosphate in D5W 900 MG in Premix Bag 1 BAG IV ONE ×2 (10:22)
--- NOTE | 2019-03-10 10:22 | EDM.PDOC ---
ED HPI GENERAL MEDICAL PROBLEM - General Chief Complaint: General Stated Complaint: FACIAL SWELLING Time Seen by Provider: 03/10/19 09:58 Source of Information: Reports: Patient History Limitations: Reports: No Limitations - History of Present Illness INITIAL COMMENTS - FREE TEXT/NARRATIVE: HISTORY AND PHYSICAL: History of present illness: Patient is a 33-year-old male who presents to the ED today with concern of left- sided facial swelling due to dental abscess. Patient states he was seen in the ED a few days ago and was given antibiotic for a dental abscess. Patient states he's been taking the antibiotic as directed but woke up yesterday with worsening left-sided facial swelling. Patient states he does not have an appointment with the dentist at this time. Patient denies any other symptoms or concerns. Patient was seen in the ED on 03/08/19 for dental abscess and given Augmentin and dental balls. Patient denies fever, chills, chest pain, shortness of breath, or cough. Denies headache, neck stiff ness, change in vision, syncope, or near syncope. Denies nausea, vomiting, abdominal pain, diarrhea, constipation, or dysuria. Has not noted any blood in urine or stool. Patient has been eating and drinking appropriately. Review of systems: As per history of present illness and below otherwise all systems reviewed and negative. Past medical history: As per history of present illness and as reviewed below otherwise noncontributory. Surgical history: As per history of present illness and as reviewed below otherwise noncontributory. Social history: See social history for further information Family history: As per history of present illness and as reviewed below otherwise noncontributory. Physical exam: General: Patient is alert, oriented, and in no acute distress. Patient sitting comfortably on exam table. HEENT: Atraumatic, normocephalic, pupils equal and reactive bilaterally, negative for conjunctival pallor or scleral icterus, mucous membranes moist, TMs normal bilaterally, throat clear, neck supple, nontender, trachea midline. No drooling or trismus noted. No meningeal signs. No hot potato voice noted. The left side of the face is moderately edematous involving the upper and lower eyelid, left maxillary sinus, left mandible. EOMS intact without pain or difficulty. This area is also erythematous and painful to palpation. Lungs: Clear to auscultation, breath sounds equal bilaterally, chest nontender. Heart: S1S2, regular rate and rhythm without overt murmur Abdomen: Soft, nondistended, nontender. Negative for masses or hepatosplenomegaly. Negative for costovertebral tenderness. Pelvis: Stable nontender. Genitourinary: Deferred. Rectal: Deferred. Skin: Intact, warm, dry. No lesions or rashes noted. Extremities: Atraumatic, negative for cords or calf pain. Neurovascular unremarkable. Neuro: Awake, alert, oriented. Cranial nerves II through XII unremarkable. Cerebellum unremarkable. Motor and sensory unremarkable throughout. Exam nonfocal. Notes: Discussed the importance for follow-up with the dentist. Voices understanding and is agreeable to plan of care. Denies any further questions or concerns at this time. Diagnostics: CBC, CMP, lactate, blood cultures x 2, maxillofacial CT Therapeutics: Clindamycin, NS, Rocephin Prescription: Clindamycin Impression: Dental abscess Plan: 1. Please take medication as prescribed. Continue prior antibiotic along with new antibiotic as prescribed. 2. Tylenol and/or ibuprofen as directed and as needed for pain management. 3. "Tooth Balls" have been given to you; apply along the gumline every 2-3 hours as needed. Do not swallow these; external use only. 4. Follow-up with a dentist for definitive care. Return to the ED as needed and as discussed. Definitive disposition and diagnosis as appropriate pending reevaluation and review of above. Left Face Pain Score (Numeric/FACES): 7 - Related Data Allergies Allergy/AdvReac Type Severity Reaction Status Date / Time No Known Allergies Allergy Verified 03/10/19 10:07 Home Meds: Home Meds Metoprolol Succinate 50 mg PO BID 03/15/18 [History] Potassium Chloride 20 meq PO DAILY #30 tablet.er 03/15/18 [Rx] methIMAzole [Methimazole] 30 mg PO DAILY 03/15/18 [History] Furosemide [Lasix] 40 mg PO TID 07/02/18 [History] Warfarin [Coumadin] 5 mg PO DAILY 07/02/18 [History] Past Medical History Cardiovascular History: Reports: Afib, Hypertension, Other (See Below) Other Cardiovascular History: CHF Endocrine/Metabolic History: Reports: Hypothyroidism - Infectious Disease History Infectious Disease History: Reports: Chicken Pox - Past Surgical History Cardiovascular Surgical History: Reports: None Social & Family History - Family History Family Medical History: Noncontributory - Tobacco Use Smoking Status *Q: Current Every Day Smoker Years of Tobacco use: 20 Packs/Tins Daily: 1 - Caffeine Use Caffeine Use: Reports: Coffee Other Caffeine Use: Every day, a pot a coffee a day, two cokes a day, - Recreational Drug Use Recreational Drug Use: No ED ROS GENERAL - Review of Systems Review Of Systems: Comprehensive ROS is negative, except as noted in HPI. ED EXAM, GENERAL - Physical Exam Exam: See Below (see dictation) Course - Vital Signs Last Recorded V/S: Last Vital Signs Temp 99.5 F 03/10/19 10:08 Pulse 69 03/10/19 10:08 Resp 20 03/10/19 10:08 BP 161/81 H 03/10/19 10:08 Pulse Ox 95 03/10/19 10:08 - Orders/Labs/Meds Orders: Active Orders 24 hr Category Date Time Status CULTURE BLOOD [BC] Stat Lab 03/10/19 10:20 Received CULTURE BLOOD [BC] Stat Lab 03/10/19 10:31 Received UA RFX ADALID AND CULT IF INDIC [URIN] Stat Lab 03/10/19 12:51 Ordered Blood Culture x2 Reflex Set [OM.PC] Stat Oth 03/10/19 10:09 Ordered Labs: Laboratory Tests 03/10/19 03/10/19 03/10/19 Range/Units 10:20 10:20 10:20 WBC 8.84 (4.0-11.0) K/uL RBC 4.00 L (4.50-5.90) M/uL Hgb 12.3 L (13.0-17.0) g/dL Hct 36.7 L (38.0-50.0) % MCV 91.8 (80.0-98.0) fL MCH 30.8 (27.0-32.0) pg MCHC 33.5 (31.0-37.0) g/dL RDW Std Deviation 58.2 (28.0-62.0) fl RDW Coeff of Avery 17 H (11.0-15.0) % Plt Count 92 L (150-400) K/uL Neut % (Auto) 80.4 H (48.0-80.0) % Lymph % (Auto) 8.7 L (16.0-40.0) % [place] % (Auto) 10.2 (0.0-15.0) % Eos % (Auto) 0.5 (0.0-7.0) % Baso % (Auto) 0.2 (0.0-1.5) % Neut # (Auto) 7.1 H (1.4-5.7) K/uL Lymph # (Auto) 0.8 (0.6-2.4) K/uL [place] # (Auto) 0.9 H (0.0-0.8) K/uL Eos # (Auto) 0.0 (0.0-0.7) K/uL Baso # (Auto) 0.0 (0.0-0.1) K/uL Nucleated RBC % 0.0 /100WBC Nucleated RBCs # 0 K/uL Lactate 1.0 (0.20-2.00) mmol/L Sodium 134 L (136-148) mmol/L Potassium 4.0 (3.5-5.1) mmol/L Chloride 99 (98-107) mmol/L Carbon Dioxide 22.4 (21.0-32.0) mmol/L BUN 11 (7.0-18.0) mg/dL Creatinine 0.8 (0.8-1.3) mg/dL Est Cr Clr Drug Dosing 128.88 mL/min Estimated GFR (MDRD) > 60.0 ml/min Glucose 97 (74-106) mg/dL Calcium 8.6 (8.5-10.1) mg/dL Total Bilirubin 5.2 H (0.2-1.0) mg/dL AST 18 (15-37) IU/L ALT 19 (14-63) IU/L Alkaline Phosphatase 134 H (46-116) U/L Total Protein 8.1 (6.4-8.2) g/dL Albumin 3.8 (3.4-5.0) g/dL Globulin 4.3 H (2.6-4.0) g/dL Albumin/Globulin Ratio 0.9 (0.9-1.6) Meds: Medications Discontinued Medications Generic Name Dose Route Start Last Admin Trade Name Freq PRN Reason Stop Dose Admin Ceftriaxone Sodium 1 gm 03/10/19 13:08 Rocephin IM 03/10/19 13:09 ONETIME ONE Sodium Chloride 1,000 mls @ 999 mls/hr 03/10/19 10:10 03/10/19 10:28 Normal Saline IV 03/10/19 11:10 999 mls/hr STAT ONE Administration Clindamycin Phosphate 900 mg/ 50 mls @ 100 mls/hr 03/10/19 10:22 03/10/19 10: 59 Premix IV 03/10/19 10:51 100 mls/hr ONETIME ONE Administration Iopamidol 75 ml 03/10/19 12:07 03/10/19 12:08 Isovue Multipack-370 (76%) IVPUSH 03/10/19 12:08 75 ml ONETIME STA Administration Departure - Departure Time of Disposition: 13:10 Disposition: Home, Self-Care 01 Clinical Impression: Dental abscess - Discharge Information Referrals: PCP,Not In Area [Primary Care Provider] - Forms: ED Department Discharge Additional Instructions: The following information is given to patients seen in the emergency department who are being discharged to home. This information is to outline your options for follow-up care. We provide all patients seen in our emergency department with a follow-up referral. The need for follow-up, as well as the timing and circumstances, are variable depending upon the specifics of your emergency department visit. If you don't have a primary care physician on staff, we will provide you with a referral. We always advise you to contact your personal physician following an emergency department visit to inform them of the circumstance of the visit and for follow-up with them and/or the need for any referrals to a consulting specialist. The emergency department will also refer you to a specialist when appropriate. This referral assures that you have the opportunity for follow-up care with a specialist. All of these measure are taken in an effort to provide you with optimal care, which includes your follow-up. Under all circumstances we always encourage you to contact your private physician who remains a resource for coordinating your care. When calling for follow-up care, please make the office aware that this follow-up is from your recent emergency room visit. If for any reason you are refused follow-up, please contact the [facility] Emergency Department at and asked to speak to the emergency department charge nurse. [facility] [address] [place] [address] [facility] [address] [place] [address] 1. Please take medication as prescribed. Continue prior antibiotic along with new antibiotic as prescribed. 2. Tylenol and/or ibuprofen as directed and as needed for pain management. 3. "Tooth Balls" have been given to you; apply along the gumline every 2-3 hours as needed. Do not swallow these; external use only. 4. Follow-up with a dentist for definitive care. Return to the ED as needed and as discussed. - My Orders Last 24 Hours: My Active Orders 03/10/19 10:09 Blood Culture x2 Reflex Set [OM.PC] Stat 03/10/19 10:20 CULTURE BLOOD [BC] Stat 03/10/19 10:31 CULTURE BLOOD [BC] Stat 03/10/19 12:51 UA RFX ADALID AND CULT IF INDIC [URIN] Stat - Assessment/Plan Last 24 Hours: My Active Orders 03/10/19 10:09 Blood Culture x2 Reflex Set [OM.PC] Stat 03/10/19 10:20 CULTURE BLOOD [BC] Stat 03/10/19 10:31 CULTURE BLOOD [BC] Stat 03/10/19 12:51 UA RFX ADALID AND CULT IF INDIC [URIN] Stat
[2019-03-10 11:01] LABS: BLOOD UREA NITROGEN,BUN 11 mg/dL (7.0-18.0); CARBON DIOXIDE,CO2 22.4 mmol/L (21.0-32.0); CHLORIDE,CL 99 mmol/L (98-107); GLUCOSE RANDOM 97 mg/dL (74-106); SODIUM,NA 134 mmol/L (136-148)
[2019-03-10] MEDS ORDERED: Iopamidol 755 MG/ML 500 ML Multipack Bottle IVPUSH STA (12:07)
--- NOTE | 2019-03-10 12:47 | CT ---
EXAM DATE: 03/10/19 PATIENT'S AGE: 33 CT maxillofacial Technique: Multiple axial sections were obtained through the maxillofacial structures. Intravenous contrast was utilized. Findings: Diffuse soft tissue swelling is noted within the left cheek and left side of the mandible. Soft tissue swelling extends into the left periorbital region. No focal fluid collections of abscess are seen. Parapharyngeal soft tissues appear within normal limits. No discrete neck mass is seen. Scattered lymph nodes are noted believed to be within normal limits. There is a defect being seen within one or two posterior left maxillary molars presumably due to dental caries. No acute osseous finding is seen. Moderate mucosal thickening is noted within the right maxillary sinuses as well as mild mucosal thickening within the frontal and ethmoid sinuses as well as within the sphenoid sinus. No fluid is seen within the paranasal sinuses. Mastoid sinuses are clear. Impression: 1. Chronic appearing sinus findings as noted above. 2. Diffuse subcutaneous soft tissue swelling within the left cheek, left side of the mandible and left periorbital region. No fluid collection is seen at this time to indicate abscess. 3. Probable dental caries within one or two posterior left maxillary molars. Diagnostic code #3 This report was dictated in [place] Standard Time Report Signed by Proxy. B[facility] STATE HOSPITALRojelio
[2019-03-10] MEDS ORDERED: cefTRIAXone 1 GM Vial IM ONE (13:08)
[2019-03-10] MEDS ORDERED: cefTRIAXone 1 GM in Premix Bag 1 BAG IV ONE (13:44)
== END 2019-03-10 14:35 | disposition home or self-care (01) ==
LOC: MW.ED 09:56
DX: K04.7 Periapical abscess without sinus (principal); I11.0 Hypertensive heart disease with heart failure; I50.9 Heart failure, unspecified; I48.91 Unspecified atrial fibrillation; E03.9 Hypothyroidism, unspecified; F17.210 Nicotine dependence, cigarettes, uncomplicated; Z79.01 Long term (current) use of anticoagulants; Z79.899 Other long term (current) drug therapy
CPT/HCPCS: 70487; 80053; 81001; 83605; 85025; 87040; 96361; 96365; 96367; 99284; J0696; J3490; J7030; Q9967; 99283

== ENCOUNTER 2019-03-22 21:42 | Emergency (ER) | payer OTHER ==
--- NOTE | 2019-03-22 21:58 | EDM.PDOC ---
ED HPI GENERAL MEDICAL PROBLEM - General Chief Complaint: ENT Problem Stated Complaint: SORE THORAT Time Seen by Provider: 03/22/19 21:45 Source of Information: Reports: Patient History Limitations: Reports: No Limitations - History of Present Illness INITIAL COMMENTS - FREE TEXT/NARRATIVE: HISTORY AND PHYSICAL: History of present illness: Patient is a 33-year-old male presents to the ED today with concern of sore throat and right ear pain over the last 2-3 days. Patient states that he started since symptoms at work and he has been able to eat and drink does have pain with swallowing. Patient was seen and evaluated in the ED for a dental abscess which she states is much improved and he has a follow-up appointment in a few days with the dentist to get his tooth removed. Patient denies any other symptoms or concerns. Patient denies fever, chills, chest pain, shortness of breath, or cough. Denies headache, neck stiff ness, change in vision, syncope, or near syncope. Denies nausea, vomiting, abdominal pain, diarrhea, constipation, or dysuria. Has not noted any blood in urine or stool. Patient has been eating and drinking appropriately. Review of systems: As per history of present illness and below otherwise all systems reviewed and negative. Past medical history: As per history of present illness and as reviewed below otherwise noncontributory. Surgical history: As per history of present illness and as reviewed below otherwise noncontributory. Social history: See social history for further information Family history: As per history of present illness and as reviewed below otherwise noncontributory. Physical exam: General: Patient is alert, oriented, and in no acute distress. Patient sitting comfortably on exam table. HEENT: Atraumatic, normocephalic, pupils equal and reactive bilaterally, negative for conjunctival pallor or scleral icterus, mucous membranes moist, right TM is erythematous and bulging, left TM is normal, throat is mildly erythematous and tonsils are without exudate or edema, uvula midline, neck supple, nontender, trachea midline. No drooling or trismus noted. No meningeal signs. No hot potato voice noted. Lungs: Clear to auscultation, breath sounds equal bilaterally, chest nontender. Heart: S1S2, regular rate and rhythm without overt murmur Abdomen: Soft, nondistended, nontender. Negative for masses or hepatosplenomegaly. Negative for costovertebral tenderness. Pelvis: Stable nontender. Genitourinary: Deferred. Rectal: Deferred. Skin: Intact, warm, dry. No lesions or rashes noted. Extremities: Atraumatic, negative for cords or calf pain. Neurovascular unremarkable. Neuro: Awake, alert, oriented. Cranial nerves II through XII unremarkable. Cerebellum unremarkable. Motor and sensory unremarkable throughout. Exam nonfocal. Notes: Discussed the importance for follow-up with primary care provider. Voices understanding and is agreeable to plan of care. Denies any further questions or concerns at this time. Diagnostics: None Therapeutics: None Prescription: Amoxicillin Impression: Acute otitis media, right Pharyngitis Plan: 1. Take medication as prescribed. You can alternate ibuprofen and Tylenol as directed for pain and discomfort. 2. Follow-up with her primary care provider as discussed. Return to the ED as needed and as discussed. Definitive disposition and diagnosis as appropriate pending reevaluation and review of above. - Related Data Allergies Allergy/AdvReac Type Severity Reaction Status Date / Time No Known Allergies Allergy Verified 03/10/19 10:07 Home Meds: Home Meds Metoprolol Succinate 50 mg PO BID 03/15/18 [History] Potassium Chloride 20 meq PO DAILY #30 tablet.er 03/15/18 [Rx] methIMAzole [Methimazole] 30 mg PO DAILY 03/15/18 [History] Furosemide [Lasix] 40 mg PO TID 07/02/18 [History] Warfarin [Coumadin] 5 mg PO DAILY 07/02/18 [History] Past Medical History Cardiovascular History: Reports: Afib, Hypertension, Other (See Below) Other Cardiovascular History: CHF Endocrine/Metabolic History: Reports: Hypothyroidism - Infectious Disease History Infectious Disease History: Reports: Chicken Pox - Past Surgical History Cardiovascular Surgical History: Reports: None Social & Family History - Family History Family Medical History: Noncontributory - Caffeine Use Caffeine Use: Reports: Coffee Other Caffeine Use: Every day, a pot a coffee a day, two cokes a day, ED ROS GENERAL - Review of Systems Review Of Systems: Comprehensive ROS is negative, except as noted in HPI. ED EXAM, GENERAL - Physical Exam Exam: See Below (see dictation) Departure - Departure Time of Disposition: 21:57 Disposition: Home, Self-Care 01 Clinical Impression: Otitis media Qualifiers: Otitis media type: suppurative Chronicity: acute Laterality: right Recurrence: not specified as recurrent Spontaneous tympanic membrane rupture: without spontaneous rupture Qualified Code(s): H66.001 - Acute suppurative otitis media without spontaneous rupture of ear drum, right ear Pharyngitis Qualifiers: Pharyngitis/tonsillitis etiology: unspecified etiology Qualified Code(s): J02.9 - Acute pharyngitis, unspecified - Discharge Information Referrals: PCP,Not In Area [Primary Care Provider] - Additional Instructions: The following information is given to patients seen in the emergency department who are being discharged to home. This information is to outline your options for follow-up care. We provide all patients seen in our emergency department with a follow-up referral. The need for follow-up, as well as the timing and circumstances, are variable depending upon the specifics of your emergency department visit. If you don't have a primary care physician on staff, we will provide you with a referral. We always advise you to contact your personal physician following an emergency department visit to inform them of the circumstance of the visit and for follow-up with them and/or the need for any referrals to a consulting specialist. The emergency department will also refer you to a specialist when appropriate. This referral assures that you have the opportunity for follow-up care with a specialist. All of these measure are taken in an effort to provide you with optimal care, which includes your follow-up. Under all circumstances we always encourage you to contact your private physician who remains a resource for coordinating your care. When calling for follow-up care, please make the office aware that this follow-up is from your recent emergency room visit. If for any reason you are refused follow-up, please contact the [facility] Emergency Department at and asked to speak to the emergency department charge nurse. [facility] [address] [place] [id number] [facility] [address] [place] [address] 1. Take medication as prescribed. You can alternate ibuprofen and Tylenol as directed for pain and discomfort. 2. Follow-up with her primary care provider as discussed. Return to the ED as needed and as discussed.
== END 2019-03-22 22:09 | disposition home or self-care (01) ==
LOC: MW.ED 21:42
DX: H66.001 Acute suppurative otitis media without spontaneous rupture of ear drum, right ear (principal); J02.9 Acute pharyngitis, unspecified
CPT/HCPCS: 99282; 99283

== ENCOUNTER 2019-03-31 03:14 | Emergency (ER) | payer OTHER ==
--- NOTE | 2019-03-31 03:58 | EDM.PDOC ---
ED HPI GENERAL MEDICAL PROBLEM - General Chief Complaint: Skin Complaint Stated Complaint: LEFT LEG- OLD CUT, POSSIBLE INFECTION Time Seen by Provider: 03/31/19 03:47 Source of Information: Reports: Patient History Limitations: Reports: No Limitations - History of Present Illness INITIAL COMMENTS - FREE TEXT/NARRATIVE: 33-year-old male who presents the emergency room chief complaint of left leg swelling and pain for the past 2 months. Patient states he had a cut on his leg 2 months ago and since that time it has not healed. Patient has a history of edema in both legs. Legs are very large in circumference over the past 2 years. Patient takes Lasix for the edema. Has chills and fever at this time. Onset: Gradual Duration: Getting Worse Quality: Reports: Ache, Stabbing Severity: Moderate Improves with: Reports: None Worsens with: Reports: None Associated Symptoms: Reports: No Other Symptoms Left Lower Leg Pain Score (Numeric/FACES): 10 - Related Data Allergies Allergy/AdvReac Type Severity Reaction Status Date / Time No Known Allergies Allergy Verified 03/31/19 03:30 Home Meds: Home Meds methIMAzole [Methimazole] 10 mg PO TID 03/15/18 [History] Furosemide [Lasix] 40 mg PO BID 07/02/18 [History] Apixaban [Eliquis] 5 mg PO BID 03/22/19 [History] Carvedilol [Coreg] 3.125 mg PO BID 03/22/19 [History] Sacubitril/Valsartan [Entresto 24 mg-26 mg Tablet] 25 mg PO BID 03/22/19 [ History] Past Medical History Cardiovascular History: Reports: Afib, Hypertension, Other (See Below) Other Cardiovascular History: CHF Endocrine/Metabolic History: Reports: Hypothyroidism - Infectious Disease History Infectious Disease History: Reports: Chicken Pox - Past Surgical History Cardiovascular Surgical History: Reports: None Social & Family History - Family History Family Medical History: Noncontributory - Caffeine Use Caffeine Use: Reports: Coffee Other Caffeine Use: Every day, a pot a coffee a day, two cokes a day, ED ROS GENERAL - Review of Systems Review Of Systems: See Below Constitutional: Reports: No Symptoms HEENT: Reports: No Symptoms Respiratory: Reports: No Symptoms Cardiovascular: Reports: No Symptoms Endocrine: Reports: No Symptoms GI/Abdominal: Reports: No Symptoms : Reports: No Symptoms Musculoskeletal: Reports: Leg Pain Skin: Reports: Lesions Neurological: Reports: No Symptoms Psychiatric: Reports: No Symptoms Hematologic/Lymphatic: Reports: No Symptoms Immunologic: Reports: No Symptoms ED EXAM, SKIN/RASH Exam: See Below Exam Limited By: No Limitations General Appearance: Alert, WD/WN, No Apparent Distress Eye Exam: Bilateral Eye: Normal Fundi, Normal Inspection Ears: Normal External Exam Nose: Normal Inspection Throat/Mouth: Normal Inspection, Normal Lips, Normal Teeth, Normal Oropharynx Head: Atraumatic, Normocephalic Neck: Normal Inspection, Supple, Non-Tender Respiratory/Chest: No Respiratory Distress, Lungs Clear, Normal Breath Sounds Cardiovascular: Normal Peripheral Pulses GI/Abdominal: Normal Bowel Sounds, Soft, Non-Tender (Male) Exam: No: No Hernia Neurological: Alert, Oriented, CN II-XII Intact, Normal Cognition, Normal Reflexes Psychiatric: Normal Affect Skin: Warm, Dry, Intact, Excoriations, Increased Warmth, Lymphangitis, Wound/ Incision Location, Skin: Lower Extremity, Left Characteristics: Erythematous Associated features: Warmth, Swelling, Crusting Lymphatic: No Adenopathy Course - Vital Signs Last Recorded V/S: Last Vital Signs Temp 97.2 F 03/31/19 03:21 Pulse 108 H 03/31/19 03:21 Resp 18 03/31/19 03:21 BP 133/90 03/31/19 03:21 Pulse Ox 97 03/31/19 03:21 - Orders/Labs/Meds Orders: Active Orders 24 hr Category Date Time Status CULTURE BLOOD [BC] Stat Lab 03/31/19 03:50 Received CULTURE BLOOD [BC] Stat Lab 03/31/19 04:30 Received CULTURE WOUND [RM] Stat Lab 03/31/19 03:45 Received ceFAZolin [Ancef] 1 gm Med 03/31/19 05:25 Ordered Premix Bag 1 bag IV ONETIME Blood Culture x2 Reflex Set [OM.PC] Stat Oth 03/31/19 03:58 Ordered Saline Lock Insert [OM.PC] Stat Oth 03/31/19 03:58 Ordered Medication Orders Cefazolin Sodium/Dextrose 1 gm (/ Premix) 50 mls @ 100 mls/hr IV ONETIME ONE Stop: 03/31/19 05:54 Labs: Laboratory Tests 03/31/19 03/31/19 Range/Units 03:00 03:00 WBC 2.92 L (4.0-11.0) K/uL RBC 3.98 L (4.50-5.90) M/uL Hgb 12.1 L (13.0-17.0) g/dL Hct 36.9 L (38.0-50.0) % MCV 92.7 (80.0-98.0) fL MCH 30.4 (27.0-32.0) pg MCHC 32.8 (31.0-37.0) g/dL RDW Std Deviation 55.6 (28.0-62.0) fl RDW Coeff of Avery 16 H (11.0-15.0) % Plt Count 143 L (150-400) K/uL MPV 13.00 H (7.40-12.00) fL Neut % (Auto) 61.6 (48.0-80.0) % Lymph % (Auto) 24.7 (16.0-40.0) % Alexander % (Auto) 9.6 (0.0-15.0) % Eos % (Auto) 3.4 (0.0-7.0) % Baso % (Auto) 0.7 (0.0-1.5) % Neut # (Auto) 1.8 (1.4-5.7) K/uL Lymph # (Auto) 0.7 (0.6-2.4) K/uL Alexander # (Auto) 0.3 (0.0-0.8) K/uL Eos # (Auto) 0.1 (0.0-0.7) K/uL Baso # (Auto) 0.0 (0.0-0.1) K/uL Nucleated RBC % 0.0 /100WBC Nucleated RBCs # 0 K/uL Sodium 141 (136-148) mmol/L Potassium 4.2 (3.5-5.1) mmol/L Chloride 104 (98-107) mmol/L Carbon Dioxide 26.6 (21.0-32.0) mmol/L BUN 16 (7.0-18.0) mg/dL Creatinine 1.0 (0.8-1.3) mg/dL Est Cr Clr Drug Dosing 103.10 mL/min Estimated GFR (MDRD) > 60.0 ml/min Glucose 97 (74-106) mg/dL Calcium 9.2 (8.5-10.1) mg/dL Total Bilirubin 1.4 H (0.2-1.0) mg/dL AST 40 H (15-37) IU/L ALT 69 H (14-63) IU/L Alkaline Phosphatase 167 H (46-116) U/L Total Protein 8.6 H (6.4-8.2) g/dL Albumin 4.1 (3.4-5.0) g/dL Globulin 4.5 H (2.6-4.0) g/dL Albumin/Globulin Ratio 0.9 (0.9-1.6) Meds: Medications Generic Name Dose Route Start Last Admin Trade Name Freq PRN Reason Stop Dose Admin Cefazolin Sodium/Dextrose 1 gm 50 mls @ 100 mls/hr 03/31/19 05:25 / Premix IV 03/31/19 05:54 ONETIME ONE Departure - Departure Time of Disposition: 05:30 Disposition: Home, Self-Care 01 Condition: Good Clinical Impression: Cellulitis Qualifiers: Site of cellulitis of extremity: lower extremity - Discharge Information *PRESCRIPTION DRUG MONITORING PROGRAM REVIEWED*: Not Applicable Instructions: Cellulitis, Adult Referrals: PCP,Not In Area [Primary Care Provider] - Forms: ED Department Discharge Sepsis Event Note - Evaluation Sepsis Screening Result: No Definite Risk - Focused Exam Vital Signs: Vital Signs Temp Pulse Resp BP Pulse Ox 03/31/19 03:21 97.2 F 108 H 18 133/90 97 Date Exam was Performed: 03/31/19 Time Exam was Performed: 05:29 - My Orders Last 24 Hours: My Active Orders 03/31/19 03:45 CULTURE WOUND [RM] Stat 03/31/19 03:50 CULTURE BLOOD [BC] Stat 03/31/19 03:58 Blood Culture x2 Reflex Set [OM.PC] Stat Saline Lock Insert [OM.PC] Stat 03/31/19 04:30 CULTURE BLOOD [BC] Stat 03/31/19 05:25 ceFAZolin [Ancef] 1 gm Premix Bag 1 bag IV ONETIME - Assessment/Plan Last 24 Hours: My Active Orders 03/31/19 03:45 CULTURE WOUND [RM] Stat 03/31/19 03:50 CULTURE BLOOD [BC] Stat 03/31/19 03:58 Blood Culture x2 Reflex Set [OM.PC] Stat Saline Lock Insert [OM.PC] Stat 03/31/19 04:30 CULTURE BLOOD [BC] Stat 03/31/19 05:25 ceFAZolin [Ancef] 1 gm Premix Bag 1 bag IV ONETIME
[2019-03-31 04:21] LABS: BLOOD UREA NITROGEN,BUN 16 mg/dL (7.0-18.0); CARBON DIOXIDE,CO2 26.6 mmol/L (21.0-32.0); CHLORIDE,CL 104 mmol/L (98-107); GLUCOSE RANDOM 97 mg/dL (74-106); POTASSIUM,K 4.2 mmol/L (3.5-5.1); SODIUM,NA 141 mmol/L (136-148)
--- NOTE | 2019-03-31 05:09 | CT ---
HISTORY: Left leg pain and swelling. TECHNIQUE: Noncontrast CT of the proximal mid aspect of the left lower leg. [id number] does not include the knee, distal-most lower leg or ankle. COMPARISON: No prior. FINDINGS: There is skin thickening along with subcutaneous fat infiltration involving the left lower leg which may relate to edema and/or cellulitis. Prominent subcutaneous varicosities are present. There is no well-formed soft tissue fluid collection. No soft tissue gas. No deeper intramuscular or fascial plane fluid collection. No bony destructive change to suggest osteomyelitis. No acute fracture within the [id number]. IMPRESSION: 1. Skin thickening along with subcutaneous fat infiltration which may relate to edema and/or cellulitis. 2. No localized fluid collection. 3. Prominent subcutaneous varicosities. 4. No soft tissue gas. 5. No bony destructive change to suggest osteomyelitis. Please note that all CT scans at this facility use dose modulation, iterative reconstruction, and/or weight-based dosing when appropriate to reduce radiation dose to as low as reasonably achievable. Dictated by Kuldeep Pace MD @ Mar 31 2019 7:58AM Signed by Dr. Kuldeep Pace @ Mar 31 2019 8:02AM
[2019-03-31] MEDS ORDERED: ceFAZolin 1 GM in Premix Bag 1 BAG IV ONE (05:25)
== END 2019-03-31 06:22 | disposition home or self-care (01) ==
LOC: EEVIPCON 03:14 → MW.ED 03:14
DX: L03.116 Cellulitis of left lower limb (principal); I48.91 Unspecified atrial fibrillation; I11.0 Hypertensive heart disease with heart failure; I50.9 Heart failure, unspecified; Z79.899 Other long term (current) drug therapy; Z79.01 Long term (current) use of anticoagulants
CPT/HCPCS: 36415; 73700; 80053; 85025; 87040; 87070; 87077; 87186; 96365; 99284; J0690

== ENCOUNTER 2019-07-13 02:10 | Emergency (ER) | payer MEDICAID, OTHER ==
[~2019-07-13 02:10] MED LIST: Sodium Chloride 0.9% 1,000 ML IV ONE
--- NOTE | 2019-07-13 02:28 | EDM.PDOC ---
ED [facility] GENERAL MEDICAL PROBLEM - General Stated Complaint: CUT ON LEG BLEEDING Time Seen by Provider: 07/13/19 02:25 Source of Information: Reports: Patient, Old Records History Limitations: Reports: No Limitations - History of Present Illness INITIAL COMMENTS - FREE TEXT/NARRATIVE: Patient is 34-year-old male past medical history of obesity, A. fib with RVR, CHF. Patient presents with a chief complaint of left lower extremity bleeding. Patient states the bleeding started about 30 to 45 minutes prior to arrival. Patient states the bleeding started spontaneously. Patient states the bleeding is only in the left lower extremity where he has a chronic wound. Patient reports the bleeding is severe and diffuse. Patient reports associated lightheadedness and weakness. Patient denies any other injury. Patient reports compliance with medications. Pt states he has had this problem in the past with bleeding. Patient denies any procedures to the lower extremity. Patient has never seen a vascular surgeon. Pmhx: Per HPI Pshx: None Family Hx: noncontributory Smoking history? no Etoh use? none Drug use? none In addition to that documented in the HPI above, the additional ROS was obtained : Constitutional: Denies fevers or chills Eyes: Denies vision changes ENMT: Denies sore throat CV: Denies chest pain Resp: Denies SOB GI: Denies vomiting or diarrhea : Denies painful urination MSK: Denies recent trauma Skin: Denies new rashes Neuro: Denies new numbness or tingling or weakness Endocrine: Denies unexpected weight loss Heme: Denies bleeding disorders I have reviewed the triage vital signs Const: Well nourished, well developed, appears stated age Eyes: PERRL, no conjunctival injection HENT: NCAT, Neck supple without meningismus CV: RRR, Warm, well-perfused extremities RESP: CTAB, Unlabored respiratory effort GI: soft, non-tender, non-distended, no masses MSK: Diffusely swollen bilateral lower extremities. No gross deformities appreciated Skin: Left lower extremity wound noted on the anterior distal leg, the wound is over varicose vein and is chronic in appearance. Active oozing noted which stopped with leg elevation. No evidence of arterial bleeding. Warm, dry. No rashes Neuro: Alert, engineering consultant II-XII grossly intact. Sensation and motor function of extremities grossly intact. Psych: Appropriate mood and affect Assessment and plan: Patient is 34-year-old male presenting with bleeding varicose veins of the left lower extremity. No evidence of arterial bleed on examination. Patient does have significant bleeding once his leg is put in a dependent position or he attempts to bear weight. This is complicated by the fact of the patient being on Eliquis. Patient's hemoglobin on arrival was 11.7 and on repeat was 10.0. Patient did not experience any significant bleeding after the initial blood draw and the latter likely represents is more accurate H&H. Patient's hypotension improved with small boluses of fluid. Fluid hydration was done gently given the patient's underlying heart failure. No requirements for PRBC transfusion at this time. A topical TXA dressing was applied to the patient's lower extremity however bleeding would continue when he put his leg in a dependent position. Patient's mental status remained normal throughout the entirety of ER stay. This case was discussed with Dr. Mars who is the on-call general surgeon. He believes that the patient should be transferred for treatment and potentially operative exploration of the wound. Given the patient's significant medical comorbidities and morbid obesity, the patient will be better served by being transferred to another facility. This case was discussed with Dr. Dwyer in the emergency room who agreed to accept the patient. Patient is hemodynamically stable for ground transfer at this time. Direct pressure will be continued to applied and the leg will be continued to be elevated. At the time of transfer, the patient is not exhibiting any signs of fever, cough, shortness of breath. No evidence of pulmonary edema at this time. Left Lower Leg Pain Score (Numeric/FACES): 4 - Related Data Allergies Allergy/AdvReac Type Severity Reaction Status Date / Time No Known Allergies Allergy Verified 07/13/19 03:44 Home Meds: Home Meds methIMAzole [Methimazole] 10 mg PO TID 03/15/18 [History] Furosemide [Lasix] 40 mg PO BID 07/02/18 [History] Apixaban [Eliquis] 5 mg PO BID 03/22/19 [History] Carvedilol [Coreg] 3.125 mg PO BID 03/22/19 [History] Sacubitril/Valsartan [Entresto 24 mg-26 mg Tablet] 25 mg PO BID 03/22/19 [ History] Past Medical History Cardiovascular History: Reports: Afib, Hypertension, Other (See Below) Other Cardiovascular History: CHF Endocrine/Metabolic History: Reports: Hypothyroidism Dermatologic History: Reports: Other (See Below) Other Dermatologic History: cut left leg several months ago, infected now - Infectious Disease History Infectious Disease History: Reports: Chicken Pox - Past Surgical History Cardiovascular Surgical History: Reports: None Social & Family History - Family History Family Medical History: Noncontributory - Caffeine Use Caffeine Use: Reports: Coffee Other Caffeine Use: Every day, a pot a coffee a day, two cokes a day, Review of Systems - Review of Systems Review Of Systems: See Below ED EXAM, GENERAL - Physical Exam Exam: See Below Course - Vital Signs Last Recorded V/S: Last Vital Signs Temp 34.6 C L 07/13/19 02:10 Pulse 90 07/13/19 04:31 Resp 12 07/13/19 02:10 BP 104/58 L 07/13/19 04:31 Pulse Ox 96 07/13/19 02:10 - Orders/Labs/Meds Labs: Laboratory Tests 07/13/19 07/13/19 07/13/19 Range/Units 02:15 02:15 02:15 WBC 9.30 (4.0-11.0) K/uL RBC 3.80 L (4.50-5.90) M/uL Hgb 11.7 L (13.0-17.0) g/dL Hct 35.4 L (38.0-50.0) % MCV 93.2 (80.0-98.0) fL MCH 30.8 (27.0-32.0) pg MCHC 33.1 (31.0-37.0) g/dL RDW Std Deviation 57.7 (28.0-62.0) fl RDW Coeff of Avery 17 H (11.0-15.0) % Plt Count 158 (150-400) K/uL MPV 12.80 H (7.40-12.00) fL Neut % (Auto) 61.0 (48.0-80.0) % Lymph % (Auto) 27.8 (16.0-40.0) % Crockett % (Auto) 8.2 (0.0-15.0) % Eos % (Auto) 2.5 (0.0-7.0) % Baso % (Auto) 0.5 (0.0-1.5) % Neut # (Auto) 5.7 (1.4-5.7) K/uL Lymph # (Auto) 2.6 H (0.6-2.4) K/uL Crockett # (Auto) 0.8 (0.0-0.8) K/uL Eos # (Auto) 0.2 (0.0-0.7) K/uL Baso # (Auto) 0.1 (0.0-0.1) K/uL Nucleated RBC % 0.0 /100WBC Nucleated RBCs # 0 K/uL INR 1.09 Sodium 142 (136-148) mmol/L Potassium 3.4 L (3.5-5.1) mmol/L Chloride 105 (98-107) mmol/L Carbon Dioxide 24.9 (21.0-32.0) mmol/L BUN 19 H (7.0-18.0) mg/dL Creatinine 1.0 (0.8-1.3) mg/dL Est Cr Clr Drug Dosing 102.12 mL/min Estimated GFR (MDRD) > 60.0 ml/min Glucose 134 H (74-106) mg/dL Calcium 8.4 L (8.5-10.1) mg/dL Total Bilirubin 1.4 H (0.2-1.0) mg/dL AST 18 (15-37) IU/L ALT 25 (14-63) IU/L Alkaline Phosphatase 121 H (46-116) U/L Total Protein 7.3 (6.4-8.2) g/dL Albumin 3.8 (3.4-5.0) g/dL Globulin 3.5 (2.6-4.0) g/dL Albumin/Globulin Ratio 1.1 (0.9-1.6) Blood Type Antibody Screen 07/13/19 07/13/19 Range/Units 02:15 04:23 WBC (4.0-11.0) K/uL RBC (4.50-5.90) M/uL Hgb 10.0 L (13.0-17.0) g/dL Hct 30.9 L (38.0-50.0) % MCV (80.0-98.0) fL MCH (27.0-32.0) pg MCHC (31.0-37.0) g/dL RDW Std Deviation (28.0-62.0) fl RDW Coeff of Avery (11.0-15.0) % Plt Count (150-400) K/uL MPV (7.40-12.00) fL Neut % (Auto) (48.0-80.0) % Lymph % (Auto) (16.0-40.0) % Crockett % (Auto) (0.0-15.0) % Eos % (Auto) (0.0-7.0) % Baso % (Auto) (0.0-1.5) % Neut # (Auto) (1.4-5.7) K/uL Lymph # (Auto) (0.6-2.4) K/uL Crockett # (Auto) (0.0-0.8) K/uL Eos # (Auto) (0.0-0.7) K/uL Baso # (Auto) (0.0-0.1) K/uL Nucleated RBC % /100WBC Nucleated RBCs # K/uL INR Sodium (136-148) mmol/L Potassium (3.5-5.1) mmol/L Chloride (98-107) mmol/L Carbon Dioxide (21.0-32.0) mmol/L BUN (7.0-18.0) mg/dL Creatinine (0.8-1.3) mg/dL Est Cr Clr Drug Dosing mL/min Estimated GFR (MDRD) ml/min Glucose (74-106) mg/dL Calcium (8.5-10.1) mg/dL Total Bilirubin (0.2-1.0) mg/dL AST (15-37) IU/L ALT (14-63) IU/L Alkaline Phosphatase (46-116) U/L Total Protein (6.4-8.2) g/dL Albumin (3.4-5.0) g/dL Globulin (2.6-4.0) g/dL Albumin/Globulin Ratio (0.9-1.6) Blood Type B POSITIVE Antibody Screen NEGATIVE Meds: Medications Discontinued Medications Generic Name Dose Route Start Last Admin Trade Name Freq PRN Reason Stop Dose Admin Tranexamic Acid 1,000 mg 07/13/19 03:03 Cyklokapron .XX 07/13/19 03:13 ONETIME ONE Departure - Departure Time of Disposition: 05:25 Disposition: DC/Tfer to Acute Hospital 02 Clinical Impression: Bleeding from varicose veins of left lower extremity - Discharge Information Referrals: PCP,None [Ordering Only Provider] - Sepsis Event Note - Focused Exam Vital Signs: Vital Signs Temp Pulse Resp BP Pulse Ox 07/13/19 04:31 90 104/58 L 07/13/19 04:00 88 97/46 L 07/13/19 02:35 106 H 90/40 L 07/13/19 02:31 120 H 88/46 L 07/13/19 02:30 121 H 68/36 L 07/13/19 02:10 34.6 C L 62 12 100/44 L 96 Date Exam was Performed: 07/13/19 Time Exam was Performed: 05:22
[2019-07-13 02:47] LABS: BLOOD UREA NITROGEN,BUN 19 mg/dL (7.0-18.0); CARBON DIOXIDE,CO2 24.9 mmol/L (21.0-32.0); CHLORIDE,CL 105 mmol/L (98-107); GLUCOSE RANDOM 134 mg/dL (74-106); POTASSIUM,K 3.4 mmol/L (3.5-5.1); SODIUM,NA 142 mmol/L (136-148)
== END 2019-07-13 06:10 ==
LOC: MW.ED 02:10
DX: I83.892 Varicose veins of left lower extremity with other complications (principal); E66.9 Obesity, unspecified; Z68.43 Body mass index [BMI] 50.0-59.9, adult; I48.91 Unspecified atrial fibrillation; I11.0 Hypertensive heart disease with heart failure; I50.9 Heart failure, unspecified; Z79.899 Other long term (current) drug therapy; Z79.01 Long term (current) use of anticoagulants
CPT/HCPCS: 36415; 80053; 85014; 85018; 85025; 85610; 86850; 86900; 86901; 96360; 99284; J7030; 99283

== ENCOUNTER 2020-05-10 04:01 | Emergency (ER) | payer SELFPAY ==
[2020-05-10] MEDS ORDERED: Lidocaine 1% PF 2 ML SDV INJECT ONE (04:26)
[2020-05-10] MEDS ORDERED: Doxycycline 100 MG Cap PO ONE (04:37)
--- NOTE | 2020-05-10 04:40 | EDM.PDOC ---
ED HPI GENERAL MEDICAL PROBLEM - General Chief Complaint: ENT Problem Stated Complaint: RT EAR SWOLLEN, PAIN Time Seen by Provider: 05/10/20 04:20 - History of Present Illness INITIAL COMMENTS - FREE TEXT/NARRATIVE: CHIEF COMPLAINT(S): Right ear infection HISTORY OF PRESENT ILLNESS: This is a 34-year-old man with a past medical history of hypertension who comes to the emergency department with a chief complaint of right ear infection. The patient noticed that he had what he stated was a pimple on his right ear. He states that he tried to pop it with a clean needle and then his friend offered him a razor blade. He states that since that time there has been some swelling and redness and tenderness. He denies any fevers, chills, chest pain or shortness of breath. He denies any blurry vision or double vision. He denies any trouble opening his mouth or sore throat. He states that he does have some pain near his right jaw. He denies any other symptoms. REVIEW OF SYSTEMS: Constitutional: Denies fever, chills. Eyes: Denies eye pain Ears, Nose, Mouth, & Throat: Positive for right earlobe swelling and pain Skin: Positive redness of his right earlobe Neurological: Denies blurred vision numbness, tingling, weakness PAST MEDICAL HISTORY: As per history of present illness and as reviewed below otherwise noncontributory. SURGICAL HISTORY: As per history of present illness and as reviewed below otherwise noncontributory. SOCIAL HISTORY: As per history of present illness and as reviewed below otherwise noncontributory. FAMILY HISTORY: As per history of present illness and as reviewed below otherwise noncontributory. EXAMINATION OF ORGAN SYSTEMS/BODY AREAS: Constitutional: Blood pressure was 125/76, heart rate 70, respiratory rate 18 with an oxygen saturation of 97% on room air. Temperature 36.1 General: Overall well-appearing man who is in no acute distress Psychiatric: Appropriate mood and affect. Eyes: No scleral icterus or conjunctival erythema pupils equal round reactive to light. Extraocular movements intact. ENMT: Moist mucous membranes. No pharyngeal erythema no tonsillar exudates or swelling. The patient's right earlobe is red and tender to palpation. There is an area of fluctuance just underneath. There is no crepitus. There is some right jaw tenderness however no trismus. Cardiovascular: Regular, rate, and rhythm. No gallops, murmurs, or rubs. Respiratory: Lungs clear to auscultation bilaterally. No wheezes, rales, or rhonchi. Skin: As noted above Neurological: Alert, GCS 15 strength and sensation intact. MEDICAL DECISION MAKING AND COURSE IN THE ED WITH INTERPRETATION/REVIEW OF DIAGNOSTIC STUDIES: This is a 34-year-old man with a past medical history of hypertension who comes to the emergency department with earlobe cellulitis and possible abscess. At this time we will do a needle aspiration. Using 1% lidocaine I did inject approximately half a cc on the earlobe. Using a 21-gauge needle I did insert into the area of fluctuance and did get return of purulence. After this using manual expression the rest of the purulence was expressed. There was no longer any fluctuance underneath. At this time I did discuss with patient I would like to start him on doxycycline. I discussed that he need to complete a course. I discussed that if he had any new or worsening symptoms he should return to the emergency department. He was amenable discharge at this time and had no further questions. He is to follow-up with his primary care physician DISPOSITION: Patient was discharged in stable condition. The patient will follow up with his primary care physician CONDITION: Fair PROCEDURES: Needle aspiration of right earlobe FINAL IMPRESSION(S)/DIAGNOSES: 1. Acute right earlobe cellulitis 2. Acute right earlobe abscess status post needle aspiration Serjio Sanchez M.D. R ear Pain Score (Numeric/FACES): 10 - Related Data Allergies Allergy/AdvReac Type Severity Reaction Status Date / Time No Known Allergies Allergy Verified 05/10/20 04:23 Home Meds: Home Meds methIMAzole [Methimazole] 10 mg PO TID 03/15/18 [History] Furosemide [Lasix] 40 mg PO BID 07/02/18 [History] Apixaban [Eliquis] 5 mg PO BID 03/22/19 [History] Sacubitril/Valsartan [Entresto 24 mg-26 mg Tablet] 25 mg PO BID 03/22/19 [History] carvediloL [Coreg] 3.125 mg PO BID 03/22/19 [History] Doxycycline [Vibramycin] 100 mg PO BID #14 tab 05/10/20 [Rx] Past Medical History Cardiovascular History: Reports: Afib, Hypertension, Other (See Below) Other Cardiovascular History: CHF Endocrine/Metabolic History: Reports: Hypothyroidism Hematologic History: Reports: Anticoagulation Therapy Dermatologic History: Reports: Other (See Below) Other Dermatologic History: cut left leg several months ago, infected now - Infectious Disease History Infectious Disease History: Reports: Chicken Pox - Past Surgical History Cardiovascular Surgical History: Reports: None Social & Family History - Family History Family Medical History: No Pertinent Family History - Tobacco Use Tobacco Use Status *Q: Current Every Day Tobacco User Years of Tobacco use: 20 Packs/Tins Daily: 1 - Caffeine Use Caffeine Use: Reports: Coffee Other Caffeine Use: Every day, a pot a coffee a day, two cokes a day, - Recreational Drug Use Recreational Drug Use: No ED ROS ENT - Review of Systems Review Of Systems: See Below ED EXAM, ENT - Physical Exam Exam: See Below Course - Vital Signs Last Recorded V/S: Last Vital Signs Temp 36.1 C 05/10/20 04:20 Pulse 76 05/10/20 04:50 Resp 18 05/10/20 04:50 BP 117/94 H 05/10/20 04:50 Pulse Ox 94 L 05/10/20 04:50 - Orders/Labs/Meds Meds: Medications Discontinued Medications Generic Name Dose Route Start Last Admin Trade Name Alex PRN Reason Stop Dose Admin Doxycycline Hyclate 100 mg 05/10/20 04:37 05/10/20 04:49 Vibramycin PO 05/10/20 04:38 100 mg ONETIME ONE Administration Lidocaine HCl 2 ml 05/10/20 04:26 05/10/20 04:48 Xylocaine-Mpf 1% INJECT 05/10/20 04:27 2 ml ONETIME ONE Administration Departure - Departure Time of Disposition: 04:38 Disposition: Home, Self-Care 01 Condition: Fair Clinical Impression: Abscess Cellulitis of earlobe Qualifiers: Laterality: right Qualified Code(s): H60.11 - Cellulitis of right external ear - Discharge Information *PRESCRIPTION DRUG MONITORING PROGRAM REVIEWED*: No *COPY OF PRESCRIPTION DRUG MONITORING REPORT IN PATIENT WESLY: No Prescriptions: Doxycycline [Vibramycin] 100 mg PO BID #14 tab Instructions: Skin Abscess, [id number], Cellulitis, Adult, [id number] Referrals: PCP,Not In Area [Primary Care Provider] - Forms: ED Department Discharge Additional Instructions: Your evaluated today on an emergent basis. At this time we were able to drain pus out of the abscess in your right earlobe. We provided you with doxycycline. I do recommend you complete a course of doxycycline and follow-up with your primary care physician within 7 days. If you have any new or worsening symptoms please return to the emergency department. You may take Tylenol and ibuprofen [id number] for pain relief. [facility] [address], [place] [address] [facility] [address] [place] [address] The patient is informed of any results of their evaluation and diagnostic workup and all questions are answered. They are given discharge instructions and return precautions. The patient is stable for discharge. The patient states they understand and agree with the plan and that they will return if their symptoms get worse or if they have any new concerns. The following information is given to patients seen in the emergency department who are being discharged to home. This information is to outline your options for follow-up care. We provide all patients seen in our emergency department with a follow-up referral. The need for follow-up, as well as the timing and circumstances, are variable depending upon the specifics of your emergency department visit. If you don't have a primary care physician on staff, we will provide you with a referral. We always advise you to contact your personal physician following an emergency department visit to inform them of the circumstance of the visit and for follow-up with them and/or the need for any referrals to a consulting specialist. The emergency department will also refer you to a specialist when appropriate. This referral assures that you have the opportunity for follow-up care with a specialist. All of these measure are taken in an effort to provide you with optimal care, which includes your follow-up. Under all circumstances we always encourage you to contact your private physician who remains a resource for coordinating your care. When calling for follow-up care, please make the office aware that this follow-up is from your recent emergency room visit. If for any reason you are refused follow-up, please contact the [facility] Emergency Department at and asked to speak to the emergency department charge nurse. Sepsis Event Note (ED) - Evaluation Sepsis Screening Result: No Definite Risk
== END 2020-05-10 04:50 | disposition home or self-care (01) ==
LOC: MW.ED 04:01
DX: H60.11 Cellulitis of right external ear (principal); H66.001 Acute suppurative otitis media without spontaneous rupture of ear drum, right ear; I48.91 Unspecified atrial fibrillation; I11.0 Hypertensive heart disease with heart failure; I50.9 Heart failure, unspecified; Z72.0 Tobacco use; Z79.01 Long term (current) use of anticoagulants; Z79.899 Other long term (current) drug therapy
CPT/HCPCS: 10160; 99282; A9270; 99283; J2001

== ENCOUNTER 2020-05-14 05:05 | Inpatient (IN) | payer SELFPAY ==
--- NOTE | 2020-05-14 05:23 | EDM.PDOC ---
ED HPI GENERAL MEDICAL PROBLEM - General Chief Complaint: Skin Complaint Stated Complaint: RT EAR SWELLING Time Seen by Provider: 05/14/20 05:06 Source of Information: Reports: Patient History Limitations: Reports: No Limitations - History of Present Illness INITIAL COMMENTS - FREE TEXT/NARRATIVE: Is a 34-year-old male who presents today for right ear pain. Patient was seen in the ED a few days ago after he himself tried to drain his ear at work with a sterile razor blade. The ER physician did a needle biopsy and got a good amount of pus out of the right ear and placed the patient on doxycycline discharged home. At the 4 days of being home patient returns because the ear lobe is now more swollen he has pain to the front of his ear as well in the back of his ear. Patient denies any fever chills or neurologic complaints. right ear Pain Score (Numeric/FACES): 8 - Related Data Allergies Allergy/AdvReac Type Severity Reaction Status Date / Time No Known Allergies Allergy Verified 05/14/20 05:13 Home Meds: Home Meds methIMAzole [Methimazole] 10 mg PO TID 03/15/18 [History] Furosemide [Lasix] 40 mg PO BID 07/02/18 [History] Apixaban [Eliquis] 5 mg PO BID 03/22/19 [History] Sacubitril/Valsartan [Entresto 24 mg-26 mg Tablet] 25 mg PO BID 03/22/19 [History] carvediloL [Coreg] 3.125 mg PO BID 03/22/19 [History] Doxycycline [Vibramycin] 100 mg PO BID #14 tab 05/10/20 [Rx] Past Medical History HEENT History: Reports: None Cardiovascular History: Reports: Afib, Hypertension, Other (See Below) Other Cardiovascular History: CHF Respiratory History: Reports: None Gastrointestinal History: Reports: None Genitourinary History: Reports: None Musculoskeletal History: Reports: None Neurological History: Reports: None Psychiatric History: Reports: None Endocrine/Metabolic History: Reports: Hypothyroidism Insulin Pump Model and Net Developer: None Hematologic History: Reports: Anticoagulation Therapy Immunologic History: Reports: None Oncologic (Cancer) History: Reports: None Dermatologic History: Reports: None Other Dermatologic History: cut left leg several months ago, infected now - Infectious Disease History Infectious Disease History: Reports: Chicken Pox - Past Surgical History Head Surgeries/Procedures: Reports: None Cardiovascular Surgical History: Reports: None Social & Family History - Family History Family Medical History: No Pertinent Family History - Caffeine Use Caffeine Use: Reports: Coffee Other Caffeine Use: Every day, a pot a coffee a day, two cokes a day, - Recreational Drug Use Recreational Drug Use: No ED ROS GENERAL - Review of Systems Review Of Systems: See Below Constitutional: Reports: No Symptoms HEENT: Reports: Ear Pain Respiratory: Reports: No Symptoms Cardiovascular: Reports: No Symptoms Endocrine: Reports: No Symptoms GI/Abdominal: Reports: No Symptoms : Reports: No Symptoms Musculoskeletal: Reports: No Symptoms Skin: Reports: No Symptoms Neurological: Reports: No Symptoms Psychiatric: Reports: No Symptoms Hematologic/Lymphatic: Reports: No Symptoms Immunologic: Reports: No Symptoms ED EXAM, SKIN/RASH Exam: See Below Exam Limited By: No Limitations General Appearance: Alert, WD/WN, No Apparent Distress Eye Exam: Bilateral Eye: EOMI, PERRL Ears: Normal TMs. No: Normal External Exam (swelling and redness tenderness to front and back of ear) Respiratory/Chest: No Respiratory Distress, Lungs Clear Cardiovascular: Normal Peripheral Pulses, Regular Rate, Rhythm GI/Abdominal: Normal Bowel Sounds, Soft, Non-Tender Course - Vital Signs Last Recorded V/S: Last Vital Signs Temp 96.8 F L 05/14/20 06:34 Pulse 73 05/14/20 06:34 Resp 18 05/14/20 06:34 BP 118/76 05/14/20 06:34 Pulse Ox 96 05/14/20 06:34 - Orders/Labs/Meds Orders: Active Orders 24 hr Category Date Time Status Patient Status [ADT] Routine ADT 05/14/20 07:02 Ordered COVID-19/FLU A+B [MOLEC] Stat Lab 05/14/20 06:57 Ordered CULTURE BLOOD [BC] Stat Lab 05/14/20 05:30 Received CULTURE BLOOD [BC] Stat Lab 05/14/20 05:44 Received Blood Culture x2 Reflex Set [OM.PC] Stat Oth 05/14/20 05:35 Ordered Labs: Laboratory Tests 05/14/20 05/14/20 05/14/20 Range/Units 05:30 05:30 05:30 WBC 8.08 (4.0-11.0) K/uL RBC 4.59 (4.50-5.90) M/uL Hgb 14.8 (13.0-17.0) g/dL Hct 44.1 (38.0-50.0) % MCV 96.1 (80.0-98.0) fL MCH 32.2 H (27.0-32.0) pg MCHC 33.6 (31.0-37.0) g/dL RDW Std Deviation 52.6 (28.0-62.0) fl RDW Coeff of Avery 15 (11.0-15.0) % Plt Count 113 L (150-400) K/uL MPV 12.90 H (7.40-12.00) fL Neut % (Auto) 75.1 (48.0-80.0) % Lymph % (Auto) 12.3 L (16.0-40.0) % Carroll % (Auto) 9.0 (0.0-15.0) % Eos % (Auto) 3.1 (0.0-7.0) % Baso % (Auto) 0.5 (0.0-1.5) % Neut # (Auto) 6.1 H (1.4-5.7) K/uL Lymph # (Auto) 1.0 (0.6-2.4) K/uL Carroll # (Auto) 0.7 (0.0-0.8) K/uL Eos # (Auto) 0.3 (0.0-0.7) K/uL Baso # (Auto) 0.0 (0.0-0.1) K/uL Nucleated RBC % 0.0 /100WBC Nucleated RBCs # 0 K/uL ESR (0-14) mm/hr INR 1.04 APTT 28.1 (18.6-31.3) SEC Lactate 0.9 (0.20-2.00) mmol/L Sodium (136-148) mmol/L Potassium (3.5-5.1) mmol/L Chloride (98-107) mmol/L Carbon Dioxide (21.0-32.0) mmol/L BUN (7.0-18.0) mg/dL Creatinine (0.8-1.3) mg/dL Est Cr Clr Drug Dosing mL/min Estimated GFR (MDRD) ml/min Glucose (74-106) mg/dL Calcium (8.5-10.1) mg/dL Phosphorus (2.6-4.7) mg/dL Magnesium (1.8-2.4) mg/dL Total Bilirubin (0.2-1.0) mg/dL AST (15-37) IU/L ALT (14-63) IU/L Alkaline Phosphatase (46-116) U/L Creatine Kinase (26-308) U/L C-Reactive Protein (0.00-0.90) mg/dL Total Protein (6.4-8.2) g/dL Albumin (3.4-5.0) g/dL Globulin (2.6-4.0) g/dL Albumin/Globulin Ratio (0.9-1.6) 05/14/20 05/14/20 Range/Units 05:30 05:30 WBC (4.0-11.0) K/uL RBC (4.50-5.90) M/uL Hgb (13.0-17.0) g/dL Hct (38.0-50.0) % MCV (80.0-98.0) fL MCH (27.0-32.0) pg MCHC (31.0-37.0) g/dL RDW Std Deviation (28.0-62.0) fl RDW Coeff of Avery (11.0-15.0) % Plt Count (150-400) K/uL MPV (7.40-12.00) fL Neut % (Auto) (48.0-80.0) % Lymph % (Auto) (16.0-40.0) % Carroll % (Auto) (0.0-15.0) % Eos % (Auto) (0.0-7.0) % Baso % (Auto) (0.0-1.5) % Neut # (Auto) (1.4-5.7) K/uL Lymph # (Auto) (0.6-2.4) K/uL Carroll # (Auto) (0.0-0.8) K/uL Eos # (Auto) (0.0-0.7) K/uL Baso # (Auto) (0.0-0.1) K/uL Nucleated RBC % /100WBC Nucleated RBCs # K/uL ESR 21 H (0-14) mm/hr INR APTT (18.6-31.3) SEC Lactate (0.20-2.00) mmol/L Sodium 139 (136-148) mmol/L Potassium 4.4 (3.5-5.1) mmol/L Chloride 102 (98-107) mmol/L Carbon Dioxide 29.0 (21.0-32.0) mmol/L BUN 17 (7.0-18.0) mg/dL Creatinine 1.1 (0.8-1.3) mg/dL Est Cr Clr Drug Dosing 92.84 mL/min Estimated GFR (MDRD) > 60.0 ml/min Glucose 90 (74-106) mg/dL Calcium 8.4 L (8.5-10.1) mg/dL Phosphorus 3.9 (2.6-4.7) mg/dL Magnesium 2.1 (1.8-2.4) mg/dL Total Bilirubin 1.5 H (0.2-1.0) mg/dL AST 28 (15-37) IU/L ALT 30 (14-63) IU/L Alkaline Phosphatase 103 (46-116) U/L Creatine Kinase 265 (26-308) U/L C-Reactive Protein 1.90 H (0.00-0.90) mg/dL Total Protein 8.4 H (6.4-8.2) g/dL Albumin 4.1 (3.4-5.0) g/dL Globulin 4.3 H (2.6-4.0) g/dL Albumin/Globulin Ratio 1.0 (0.9-1.6) Meds: Medications Discontinued Medications Generic Name Dose Route Start Last Admin Trade Name Jeroq PRN Reason Stop Dose Admin Levofloxacin/Dextrose 750 mg/ 150 mls @ 100 mls/hr 05/14/20 05:26 05/14/20 05:50 Premix IV 05/14/20 06:55 100 mls/hr ONETIME ONE Administration Iopamidol 100 ml 05/14/20 06:14 05/14/20 06:14 Isovue Multipack-370 (76%) IVPUSH 05/14/20 06:15 100 ml ONETIME STA Administration - Re-Assessments/Exams Free Text/Narrative Re-Assessment/Exam: 05/14/20 07:03 CT returns or shows cellulitis of the face. Patient started on antibiotics and will be admitted to the hospital. Departure - Departure Time of Disposition: 07:03 Disposition: Admitted As Inpatient 64 Condition: Good Clinical Impression: Cellulitis, face - Discharge Information *PRESCRIPTION DRUG MONITORING PROGRAM REVIEWED*: Not Applicable *COPY OF PRESCRIPTION DRUG MONITORING REPORT IN PATIENT EWSLY: Not Applicable Referrals: PCP,Not In Area [Primary Care Provider] - Forms: ED Department Discharge Sepsis Event Note (ED) - Evaluation Sepsis Screening Result: No Definite Risk - Focused Exam Vital Signs: Vital Signs Temp Pulse Resp BP Pulse Ox 05/14/20 06:34 96.8 F L 73 18 118/76 96 05/14/20 05:10 97 F 76 18 101/77 97 - My Orders Last 24 Hours: My Active Orders 05/14/20 05:30 CULTURE BLOOD [BC] Stat 05/14/20 05:35 Blood Culture x2 Reflex Set [OM.PC] Stat 05/14/20 05:44 CULTURE BLOOD [BC] Stat 05/14/20 06:57 COVID-19/FLU A+B [MOLEC] Stat 05/14/20 07:02 Patient Status [ADT] Routine - Assessment/Plan Last 24 Hours: My Active Orders 05/14/20 05:30 CULTURE BLOOD [BC] Stat 05/14/20 05:35 Blood Culture x2 Reflex Set [OM.PC] Stat 05/14/20 05:44 CULTURE BLOOD [BC] Stat 05/14/20 06:57 COVID-19/FLU A+B [MOLEC] Stat 05/14/20 07:02 Patient Status [ADT] Routine Assessment:: Patient is a 34-year-old male who presents today for right ear swelling and pain. There is no significant swelling to the right ear and tenderness to the mastoid as well as the front of the ear. Will obtain labs and CT to rule out any osteo
[2020-05-14] MEDS ORDERED: Levofloxacin/Dextrose 5%-Water 750 MG in Premix Bag 1 BAG IV ONE (05:26)
[2020-05-14 06:01] LABS: BLOOD UREA NITROGEN,BUN 17 mg/dL (7.0-18.0); CHLORIDE,CL 102 mmol/L (98-107); GLUCOSE RANDOM 90 mg/dL (74-106); POTASSIUM,K 4.4 mmol/L (3.5-5.1); SODIUM,NA 139 mmol/L (136-148)
[2020-05-14] MEDS ORDERED: Iopamidol 755 MG/ML 500 ML Multipack Bottle IVPUSH STA (06:14)
--- NOTE | 2020-05-14 06:48 | CT ---
Indication: Right ear cellulitis. Possible osteo. Technique: Multiaxial CT images were obtained after administration 100 cc Isovue 370 IV contrast. Coronal and sagittal reformatted images were submitted using bone and soft tissue reconstruction algorithms. Comparison: None Findings: No fracture is demonstrated in the facial skeleton or mandible. There is moderate edema, soft tissue swelling, and fat stranding involving the right ear pinna, right external ear canal with lesser degrees of inflammation involving the right retromastoid soft tissues, right preauricular soft tissue and extending inferiorly along the right lateral face to below the mandible. No evidence of submandibular or submental inflammation. There is diffuse thickening enhancement of the right platysma muscle. The bilateral parotid glands and submandibular glands are unremarkable. Multiple enlarged reactive right level 2 and 3 cervical lymph nodes are noted. There is no evidence of osseous erosion or malignant otitis externa. The orbits and their contents are normal in appearance. There is no evidence for penetrating injury to the ocular globes. The lenses are situated in their normally expected anterior locations. No radiodense or metallic foreign body is demonstrated. No significant abnormality is demonstrated in the sinonasal cavities or adjacent structures. The sinonasal cavities are clear. The ostiomeatal complexes on each side are structurally normal and widely patent. The nasal septum is slightly deviated to the right. The visualized portions of the brain are normal in appearance. Most consistent with multilobular Moderate enlargement of the bilateral thyroid lobes most consistent with multinodular thyroid goiter. The right lobe extends superiorly to the angle of the mandible. Impression: 1. Moderate inflammation involving the right ear pinna and lateral 3rd of the right external ear canal consistent with otitis externa. 2. No evidence of osseous erosion to suggest malignant otitis externa or osteomyelitis. 3. There is lesser degree of inflammation involving the right facial/right pre-auricular soft tissues extending below the mandible on the right side consistent with cellulitis, as well as myositis of the right platysma muscle. Minimal inflammation in the retromastoid region. 4. No drainable fluid collection or abscess. 5. Enlargement of right level 2 and level 3 cervical lymph nodes consistent with reactive lymphadenopathy. 6. Enlargement of bilateral thyroid lobes consistent with thyroid goiter. The right lobe extends superiorly to the angle of the mandible. This can be further with ultrasound. Please note that all CT scans at this facility use dose modulation, iterative reconstruction, and/or weight-based dosing when appropriate to reduce radiation dose to as low as reasonably achievable. Dictated by Adarsh Salinas MD @ May 14 2020 11:31AM Signed by Dr. Adarsh Salinas @ May 14 2020 11:38AM
[2020-05-14] MEDS ORDERED: Ondansetron 4 MG Tab.DIS PO PRN (08:14)
--- NOTE | 2020-05-14 08:21 | PCM.HP.2 ---
<Farshad Cooper - Last Filed: 05/14/20 12:42> H&P History of Present Illness - General Date of Service: 05/14/20 Admit Problem/Dx: Admission Diagnosis/Problem Admission Diagnosis/Problem Cellulitis and abscess of face Source of Information: Patient History Limitations: Reports: No Limitations - History of Present Illness Initial Comments - Free Text/Narative: Patient is a morbidly obese 34-year-old male with significant past medical history of CHF, hypertension, hypothyroidism; presenting today with worsening pain and swelling of his right earlobe. Patient was initially seen in the ED a few days prior after trying to drain his right ear with a sterile razor blade. Provider that day did a needle biopsy with good pus drainage and patient was pl aced on doxycycline p.o. at home. 4 days of being on antibiotics patient states that the earlobe became more swollen and now it is involving also the inner portion of his right ear as well. Denies any changes in hearing, any problems with moving head and neck and or swallowing. Patient also denies any fevers, chills and or neurologic symptoms. ED course: Facial sinus CT Moderate inflammation involving the right ear pinna and lateral third of the right external ear canal consistent with otitis externa. Right facial/right preauricular soft tissues extending below the mandible on the right side consistent with cellulitis as well as myositis of the right platysma muscle No drainable fluid collection and or abscess. Reactive lymphadenopathy. Enlargement of bilateral thyroid lobes consistent with thyroid goiter Given one-dose of Levofloxacin Bedside: Patient endorses similar story as above. Denies any acute pain in her discomfort. Denies any fevers, chills, body aches. right ear Pain Score (Numeric/FACES): 8 - Related Data Allergies/Adverse Reactions: Allergies Allergy/AdvReac Type Severity Reaction Status Date / Time No Known Allergies Allergy Verified 05/14/20 05:13 Home Medications: Home Meds methIMAzole [Methimazole] 10 mg PO TID 03/15/18 [History] Furosemide [Lasix] 40 mg PO BID 07/02/18 [History] Apixaban [Eliquis] 5 mg PO BID 03/22/19 [History] Sacubitril/Valsartan [Entresto 24 mg-26 mg Tablet] 1 tab PO BID 03/22/19 [History] carvediloL [Coreg] 3.125 mg PO BID 03/22/19 [History] Doxycycline [Vibramycin] 100 mg PO BID #14 tab 05/10/20 [Rx] Past Medical History HEENT History: Reports: None Cardiovascular History: Reports: Afib, Hypertension, Other (See Below) Other Cardiovascular History: CHF Respiratory History: Reports: None Gastrointestinal History: Reports: None Genitourinary History: Reports: None Musculoskeletal History: Reports: None Neurological History: Reports: None Psychiatric History: Reports: None Endocrine/Metabolic History: Reports: Hypothyroidism Insulin Pump Model and Battery Container Inspector: None Hematologic History: Reports: Anticoagulation Therapy Immunologic History: Reports: None Oncologic (Cancer) History: Reports: None Dermatologic History: Reports: None Other Dermatologic History: cut left leg several months ago, infected now - Infectious Disease History Infectious Disease History: Reports: Chicken Pox - Past Surgical History Head Surgeries/Procedures: Reports: None Cardiovascular Surgical History: Reports: None Social & Family History - Family History Family Medical History: No Pertinent Family History - Caffeine Use Caffeine Use: Reports: Coffee Other Caffeine Use: Every day, a pot a coffee a day, two cokes a day, - Recreational Drug Use Recreational Drug Use: No H&P Review of Systems - Review of Systems: Review Of Systems: See Below General: Denies: Fever, Chills HEENT: Reports: Ear Pain. Denies: Hearing Changes, Sinus Congestion, Sore Throat Pulmonary: Reports: No Symptoms Cardiovascular: Reports: No Symptoms Gastrointestinal: Reports: No Symptoms Genitourinary: Reports: No Symptoms Musculoskeletal: Denies: Neck Pain, Arm Pain, Back Pain Skin: Reports: Rash, Erythema Psychiatric: Reports: No Symptoms Neurological: Reports: No Symptoms Exam - Exam Exam: See Below - Vital Signs Vital Signs: Last Vital Signs Temp 96.3 F L 05/14/20 08:18 Pulse 65 05/14/20 08:18 Resp 18 05/14/20 08:18 BP 108/55 L 05/14/20 08:18 Pulse Ox 96 05/14/20 08:18 Weight: 205.477 kg - Exam Quality Assessment: No: Supplemental Oxygen General: Alert, Oriented, Cooperative HEENT: EOMI, Hearing Intact, Other (significant swelling noted over right face, right ear lobe specificiaclly the pinna/tragus... ROM of neck intact. tendernes noted over face/right ear ) Neck: Trachea Midline, Full Range of Motion Lungs: Clear to Auscultation, Normal Respiratory Effort Cardiovascular: Regular Rate GI/Abdominal Exam: Soft, Non-Tender Extremities: Other (+chronic lower extremity swelling ) Neurological: Cranial Nerves Intact Neuro Extensive - Mental Status: Alert, Oriented x3 Neuro Extensive - Motor, Sensory, Reflexes: CN II-XII Intact Psychiatric: Alert, Normal Affect, Normal Mood - Patient Data Lab Results Last 24 hrs: Laboratory Results - last 24 hr 05/14/20 05/14/20 05/14/20 Range/Units 05:30 05:30 05:30 WBC 8.08 (4.0-11.0) K/uL RBC 4.59 (4.50-5.90) M/uL Hgb 14.8 (13.0-17.0) g/dL Hct 44.1 (38.0-50.0) % MCV 96.1 (80.0-98.0) fL MCH 32.2 H (27.0-32.0) pg MCHC 33.6 (31.0-37.0) g/dL RDW Std Deviation 52.6 (28.0-62.0) fl RDW Coeff of Avery 15 (11.0-15.0) % Plt Count 113 L (150-400) K/uL MPV 12.90 H (7.40-12.00) fL Neut % (Auto) 75.1 (48.0-80.0) % Lymph % (Auto) 12.3 L (16.0-40.0) % [place] % (Auto) 9.0 (0.0-15.0) % Eos % (Auto) 3.1 (0.0-7.0) % Baso % (Auto) 0.5 (0.0-1.5) % Neut # (Auto) 6.1 H (1.4-5.7) K/uL Lymph # (Auto) 1.0 (0.6-2.4) K/uL [place] # (Auto) 0.7 (0.0-0.8) K/uL Eos # (Auto) 0.3 (0.0-0.7) K/uL Baso # (Auto) 0.0 (0.0-0.1) K/uL Nucleated RBC % 0.0 /100WBC Nucleated RBCs # 0 K/uL ESR (0-14) mm/hr INR 1.04 APTT 28.1 (18.6-31.3) SEC Lactate 0.9 (0.20-2.00) mmol/L Sodium (136-148) mmol/L Potassium (3.5-5.1) mmol/L Chloride (98-107) mmol/L Carbon Dioxide (21.0-32.0) mmol/L BUN (7.0-18.0) mg/dL Creatinine (0.8-1.3) mg/dL Est Cr Clr Drug Dosing mL/min Estimated GFR (MDRD) ml/min Glucose (74-106) mg/dL Calcium (8.5-10.1) mg/dL Phosphorus (2.6-4.7) mg/dL Magnesium (1.8-2.4) mg/dL Total Bilirubin (0.2-1.0) mg/dL AST (15-37) IU/L ALT (14-63) IU/L Alkaline Phosphatase (46-116) U/L Creatine Kinase (26-308) U/L C-Reactive Protein (0.00-0.90) mg/dL Total Protein (6.4-8.2) g/dL Albumin (3.4-5.0) g/dL Globulin (2.6-4.0) g/dL Albumin/Globulin Ratio (0.9-1.6) SARS-CoV-2 RNA (FRANCO) (NEGATIVE) 05/14/20 05/14/20 05/14/20 Range/Units 05:30 05:30 07:20 WBC (4.0-11.0) K/uL RBC (4.50-5.90) M/uL Hgb (13.0-17.0) g/dL Hct (38.0-50.0) % MCV (80.0-98.0) fL MCH (27.0-32.0) pg MCHC (31.0-37.0) g/dL RDW Std Deviation (28.0-62.0) fl RDW Coeff of Avery (11.0-15.0) % Plt Count (150-400) K/uL MPV (7.40-12.00) fL Neut % (Auto) (48.0-80.0) % Lymph % (Auto) (16.0-40.0) % [place] % (Auto) (0.0-15.0) % Eos % (Auto) (0.0-7.0) % Baso % (Auto) (0.0-1.5) % Neut # (Auto) (1.4-5.7) K/uL Lymph # (Auto) (0.6-2.4) K/uL [place] # (Auto) (0.0-0.8) K/uL Eos # (Auto) (0.0-0.7) K/uL Baso # (Auto) (0.0-0.1) K/uL Nucleated RBC % /100WBC Nucleated RBCs # K/uL ESR 21 H (0-14) mm/hr INR APTT (18.6-31.3) SEC Lactate (0.20-2.00) mmol/L Sodium 139 (136-148) mmol/L Potassium 4.4 (3.5-5.1) mmol/L Chloride 102 (98-107) mmol/L Carbon Dioxide 29.0 (21.0-32.0) mmol/L BUN 17 (7.0-18.0) mg/dL Creatinine 1.1 (0.8-1.3) mg/dL Est Cr Clr Drug Dosing 92.84 mL/min Estimated GFR (MDRD) > 60.0 ml/min Glucose 90 (74-106) mg/dL Calcium 8.4 L (8.5-10.1) mg/dL Phosphorus 3.9 (2.6-4.7) mg/dL Magnesium 2.1 (1.8-2.4) mg/dL Total Bilirubin 1.5 H (0.2-1.0) mg/dL AST 28 (15-37) IU/L ALT 30 (14-63) IU/L Alkaline Phosphatase 103 (46-116) U/L Creatine Kinase 265 (26-308) U/L C-Reactive Protein 1.90 H (0.00-0.90) mg/dL Total Protein 8.4 H (6.4-8.2) g/dL Albumin 4.1 (3.4-5.0) g/dL Globulin 4.3 H (2.6-4.0) g/dL Albumin/Globulin Ratio 1.0 (0.9-1.6) SARS-CoV-2 RNA (FRANCO) NEGATIVE (NEGATIVE) Result Diagrams: 05/14/20 05:30 05/14/20 05:30 Sepsis Event Note - Evaluation Sepsis Screening Result: No Definite Risk - Focused Exam Vital Signs: Vital Signs Temp Pulse Resp BP Pulse Ox 05/14/20 08:18 96.3 F L 65 18 108/55 L 96 05/14/20 07:30 70 18 103/66 98 05/14/20 06:34 96.8 F L 73 18 118/76 96 05/14/20 05:10 97 F 76 18 101/77 97 - Problem List (1) Cellulitis, face SNOMED Code(s): 169368847 ICD Code: L03.211 - CELLULITIS OF FACE Status: Acute Current Visit: Yes (2) Cellulitis SNOMED Code(s): 969875353 ICD Code: L03.90 - CELLULITIS, UNSPECIFIED Status: Acute Current Visit: No Qualifiers: Site of cellulitis of extremity: lower extremity (3) Cellulitis of earlobe SNOMED Code(s): 609936384, 040962954 ICD Code: H60.10 - CELLULITIS OF EXTERNAL EAR, UNSPECIFIED EAR Status: Acute Current Visit: No Qualifiers: Laterality: right Qualified Code(s): H60.11 - Cellulitis of right external ear Problem List Initiated/Reviewed/Updated: Yes Orders Last 24hrs: Active Orders 24 hr Category Date Time Status Patient Status [ADT] Routine ADT 05/14/20 07:02 Active Antiembolic Devices [RC] PER UNIT ROUTINE Care 05/14/20 08:15 Ordered Height and Weight [RC] DAILY Care 05/14/20 08:14 Ordered Oxygen Therapy [RC] PRN Care 05/14/20 08:14 Ordered Up ad Fernanda [RC] ASDIRECTED Care 05/14/20 08:14 Ordered VTE/DVT Education [RC] PER UNIT ROUTINE Care 05/14/20 08:14 Ordered Vital Signs [RC] Q4H Care 05/14/20 08:14 Ordered Heart Healthy Diet [DIET] Diet 05/14/20 Breakfast Ordered CULTURE BLOOD [BC] Stat Lab 05/14/20 05:30 Received CULTURE BLOOD [BC] Stat Lab 05/14/20 05:44 Received GLYCOSYLATED HEMOGLOBIN,HGBA1C [CHEM] Routine Lab 05/14/20 08:20 Ordered Ondansetron [Zofran ODT] Med 05/14/20 08:14 Ordered 4 mg PO Q4H PRN Blood Culture x2 Reflex Set [OM.PC] Stat Oth 05/14/20 05:35 Ordered Sequential Compression Device [OM.PC] Per Unit Routine Oth 05/14/20 08:14 Ordered Resuscitation Status Routine Resus Stat 05/14/20 08:14 Ordered Medication Orders Ondansetron HCl (Zofran Odt) 4 mg PO Q4H PRN PRN Reason: nausea, able to take PO Assessment/Plan Comment:: Assessment: 1. Cellulitis of face/right ear/myositis of right platysma muscle 2. Morbid obesity 3. Past medical history: CHF, hypertension, morbid obesity, hyperthyroidism Plan: Admit to inpatient. Full code. I's and O's strict. Vitals per routine. Daily weight. Up ad fernanda. Diet: Heart healthy diet. With 2 g sodium restriction. 1. Cellulitis of face/right ear myositis of right platysma muscle: Patient given dose of levofloxacin can continue daily with addition of daptomycin . Continue to monitor for response. Blood cultures ordered we will follow up once available. Imaging did not show any significant signs of abscess formation; if not improving or worsening pain may consider repeat imaging or MRI. One-time dose of ketorolac 30 now to help with inflammatory process in the right side of face. 2. Past medical history CHF: Unsure of variant of heart failure; last echocardiogram showed ejection fraction 5055%; however outside clinical notes suggest study was incomplete. Continue home medications, strict I's and O's, daily weights, sodium restriction and monitor fluid/oxygen status. 3. Atrial fibrillation: Rate controlled on carvedilol. Also anticoagulant and Eliquis however due to weight this medication may not be optimal for this patien t's body weight. Will discuss with patient possibly switching to warfarin if patient is amenable can switch and start. 4. Hypertension: Continue home medications. 5. Hyperthyroidism: goiter noted incidentally on CT face; continue methimazole ; may consider US <Shauna Barnes - Last Filed: 05/15/20 14:38> H&P History of Present Illness - General Admit Problem/Dx: Admission Diagnosis/Problem Admission Diagnosis/Problem Cellulitis and abscess of face Exam - Vital Signs Vital Signs: Last Vital Signs Temp 37.0 C 05/15/20 12:51 Pulse 82 05/15/20 12:51 Resp 18 05/15/20 12:51 BP 141/90 H 05/15/20 12:51 Pulse Ox 92 L 05/15/20 12:51 - Patient Data Lab Results Last 24 hrs: Laboratory Results - last 24 hr 05/15/20 05/15/20 Range/Units 06:15 06:15 WBC 7.50 (4.0-11.0) K/uL RBC 4.13 L (4.50-5.90) M/uL Hgb 13.2 (13.0-17.0) g/dL Hct 39.9 (38.0-50.0) % MCV 96.6 (80.0-98.0) fL MCH 32.0 (27.0-32.0) pg MCHC 33.1 (31.0-37.0) g/dL RDW Std Deviation 53.1 (28.0-62.0) fl RDW Coeff of Avery 15 (11.0-15.0) % Plt Count 101 L (150-400) K/uL MPV 13.40 H (7.40-12.00) fL Neut % (Auto) 79.5 (48.0-80.0) % Lymph % (Auto) 11.2 L (16.0-40.0) % [place] % (Auto) 6.7 (0.0-15.0) % Eos % (Auto) 2.3 (0.0-7.0) % Baso % (Auto) 0.3 (0.0-1.5) % Neut # (Auto) 6.0 H (1.4-5.7) K/uL Lymph # (Auto) 0.8 (0.6-2.4) K/uL [place] # (Auto) 0.5 (0.0-0.8) K/uL Eos # (Auto) 0.2 (0.0-0.7) K/uL Baso # (Auto) 0.0 (0.0-0.1) K/uL Nucleated RBC % 0.0 /100WBC Nucleated RBCs # 0 K/uL Sodium 139 (136-148) mmol/L Potassium 4.0 (3.5-5.1) mmol/L Chloride 104 (98-107) mmol/L Carbon Dioxide 27.1 (21.0-32.0) mmol/L BUN 16 (7.0-18.0) mg/dL Creatinine 1.1 (0.8-1.3) mg/dL Est Cr Clr Drug Dosing 91.95 mL/min Estimated GFR (MDRD) > 60.0 ml/min Glucose 86 (74-106) mg/dL Calcium 8.0 L (8.5-10.1) mg/dL Total Bilirubin 1.5 H (0.2-1.0) mg/dL AST 16 (15-37) IU/L ALT 24 (14-63) IU/L Alkaline Phosphatase 90 (46-116) U/L Total Protein 7.4 (6.4-8.2) g/dL Albumin 3.5 (3.4-5.0) g/dL Globulin 3.9 (2.6-4.0) g/dL Albumin/Globulin Ratio 0.9 (0.9-1.6) Result Diagrams: 05/15/20 06:15 05/15/20 06:15 Satish Results Last 24 hrs: Microbiology 05/14/20 05:44 Aerobic Blood Culture - Preliminary Blood - Venous - Lab Draw NO GROWTH AFTER 1 DAY Anaerobic Blood Culture - Preliminary NO GROWTH AFTER 1 DAY 05/14/20 05:30 Aerobic Blood Culture - Preliminary Blood - Venous NO GROWTH AFTER 1 DAY Anaerobic Blood Culture - Preliminary NO GROWTH AFTER 1 DAY Sepsis Event Note - Focused Exam Vital Signs: Vital Signs Temp Pulse Pulse Resp BP BP BP 05/15/20 12:51 37.0 C 82 18 141/90 H 05/15/20 08:40 75 113/68 05/15/20 08:36 36.8 C 75 17 113/68 05/15/20 04:00 36.1 C 81 18 104/58 L Pulse Ox 05/15/20 12:51 92 L 05/15/20 08:40 05/15/20 08:36 92 L 05/15/20 04:00 95 Orders Last 24hrs: Active Orders 24 hr Category Date Time Status CBC WITH AUTO DIFF [HEME] AM Lab 05/16/20 05:11 Ordered CBC WITH AUTO DIFF [HEME] AM Lab 05/17/20 05:11 Ordered COMPREHENSIVE METABOLIC PN,CMP [CHEM] AM Lab 05/16/20 05:11 Ordered COMPREHENSIVE METABOLIC PN,CMP [CHEM] AM Lab 05/17/20 05:11 Ordered Apixaban [Eliquis] Med 05/14/20 21:00 Active 5 mg PO BID Bacitracin [Bacitracin Oint] Med 05/15/20 08:35 Active 1 gm TOP TID Furosemide [Lasix] Med 05/14/20 21:00 Active 40 mg PO BID Levofloxacin/Dextrose 5%-Water [Levaquin in D5W 750 MG/ Med 05/15/20 12:40 Active 150 ML] 750 mg Premix Bag 1 bag IV Q24H Patient's Own Medication [Ptom] Med 05/14/20 21:00 Active 1 each PO BID carvediloL [Coreg] Med 05/14/20 21:00 Active 3.125 mg PO BID methIMAzole Med 05/14/20 14:00 Active 10 mg PO TID Medication Orders Acetaminophen (Tylenol Extra Strength) 500 mg PO Q4H PRN PRN Reason: fever Last Admin: 05/15/20 05:15 Dose: 500 mg Documented by: ADAIMABecky Apixaban (Eliquis) 5 mg PO BID [facility] Last Admin: 05/15/20 08:39 Dose: 5 mg Documented by: Admin: 05/14/20 20:40 Dose: 5 mg Documented by: ADAIMABecky Bacitracin (Bacitracin Oint) 1 gm TOP TID [facility] Last Admin: 05/15/20 14:11 Dose: Not Given Documented by: Admin: 05/15/20 08:40 Dose: 1 gm Documented by: CESAR Carvedilol (Coreg) 3.125 mg PO BID [facility] Last Admin: 05/15/20 08:40 Dose: 3.125 mg Documented by: Admin: 05/14/20 20:40 Dose: 3.125 mg Documented by: ALBIMABecky Furosemide (Lasix) 40 mg PO BID [facility] Last Admin: 05/15/20 08:39 Dose: 40 mg Documented by: Admin: 05/14/20 20:40 Dose: 40 mg Documented by: ALBIMABecky Daptomycin 1,300 mg/ Sodium (Chloride) 26 mls @ 780 mls/hr IV Q24H [facility] Last Admin: 05/15/20 14:12 Dose: 780 mls/hr Documented by: Infusion: 05/14/20 13:16 Dose: 780 mls/hr Documented by: Admin: 05/14/20 13:14 Dose: 780 mls/hr Documented by: GEE Levofloxacin/Dextrose 750 mg/ (Premix) 150 mls @ 150 mls/hr IV Q24H [facility] Last Admin: 05/15/20 12:52 Dose: 150 mls/hr Documented by: CESAR Methimazole (Methimazole) 10 mg PO TID [facility] Last Admin: 05/15/20 05:12 Dose: 10 mg Documented by: Admin: 05/14/20 20:41 Dose: 10 mg Documented by: Admin: 05/14/20 14:57 Dose: 10 mg Documented by: GEE Ondansetron HCl (Zofran Odt) 4 mg PO Q4H PRN PRN Reason: nausea, able to take PO Sacubitril/Valsartan [Entresto] 24 Mg-26 Mg Tablet 1 each PO BID [facility] Last Admin: 05/15/20 12:25 Dose: Not Given Documented by: Admin: 05/14/20 22:00 Dose: Not Given Documented by: THIAGO Assessment/Plan Comment:: I performed a history and physical exam of the patient and discussed management with resident. I have reviewed the residents note and agree with documented findings and plan unless otherwise specified in my note.
[2020-05-14 08:39] LABS: HEMOGLOBIN A1C 5.4 %
[2020-05-14] MEDS ORDERED: DAPTOMYCIN IV SCH (10:00)
[2020-05-14] MEDS ORDERED: SODIUM CHLORIDE 0.9% IV SCH (10:00)
[2020-05-14] MEDS ORDERED: Acetaminophen 500 MG Tab PO PRN (12:53)
[2020-05-14] MEDS ORDERED: Ketorolac 30 MG/ML SDV IVPUSH ONE (13:00)
[2020-05-14] MEDS: DAPTOMYCIN IV SCH (13:14)
[2020-05-14] MEDS: SODIUM CHLORIDE 0.9% IV SCH (13:14)
[2020-05-14] MEDS: Methimazole 5 MG Tab PO SCH ×2 (14:57→20:41)
[2020-05-14] MEDS: Furosemide 20 MG Tab PO SCH (20:40)
[2020-05-14] MEDS: Carvedilol 3.125 MG Tab PO SCH (20:40)
[2020-05-14] MEDS: Apixaban 5 MG Tab PO SCH (20:40)
[2020-05-14] MEDS: VALSARTAN PO SCH (22:00)
[2020-05-14] MEDS: SACUBITRIL PO SCH (22:00)
[2020-05-15] MEDS: Methimazole 5 MG Tab PO SCH ×2 (05:12→16:06)
[2020-05-15 07:00] LABS: BLOOD UREA NITROGEN,BUN 16 mg/dL (7.0-18.0); CARBON DIOXIDE,CO2 27.1 mmol/L (21.0-32.0); CHLORIDE,CL 104 mmol/L (98-107); GLUCOSE RANDOM 86 mg/dL (74-106); SODIUM,NA 139 mmol/L (136-148)
[2020-05-15] MEDS: Apixaban 5 MG Tab PO SCH (08:39)
[2020-05-15] MEDS: Furosemide 20 MG Tab PO SCH (08:39)
[2020-05-15] MEDS: Bacitracin Oint 28.35 GM Tube TOP SCH ×2 (08:40→14:11)
[2020-05-15] MEDS: Carvedilol 3.125 MG Tab PO SCH (08:40)
--- NOTE | 2020-05-15 08:59 | PCM.PN ---
<Farshad Cooper - Last Filed: 05/15/20 11:41> - General Info Date of Service: 05/15/20 Subjective Update: Bedside: no acute distress. mentions no pain in face/neck and or ear Functional Status: Reports: Pain Controlled - Review of Systems General: Reports: No Symptoms Pulmonary: Reports: No Symptoms Cardiovascular: Reports: No Symptoms Gastrointestinal: Reports: No Symptoms Musculoskeletal: Denies: Neck Pain, Back Pain Neurological: Reports: No Symptoms - Patient Data Vitals - Most Recent: Last Vital Signs Temp 98.2 F 05/15/20 08:36 Pulse 75 05/15/20 08:40 Resp 17 05/15/20 08:36 BP 113/68 05/15/20 08:40 Pulse Ox 92 L 05/15/20 08:36 Weight - Most Recent: 214.957 kg I&O - Last 24 Hours: Intake & Output 05/14/20 05/15/20 05/15/20 22:59 06:59 14:59 Intake Total 900 Balance 900 Lab Results Last 24 Hours: Laboratory Results - last 24 hr 05/14/20 05/15/20 05/15/20 Range/Units 10:29 06:15 06:15 WBC 7.50 (4.0-11.0) K/uL RBC 4.13 L (4.50-5.90) M/uL Hgb 13.2 (13.0-17.0) g/dL Hct 39.9 (38.0-50.0) % MCV 96.6 (80.0-98.0) fL MCH 32.0 (27.0-32.0) pg MCHC 33.1 (31.0-37.0) g/dL RDW Std Deviation 53.1 (28.0-62.0) fl RDW Coeff of Avery 15 (11.0-15.0) % Plt Count 101 L (150-400) K/uL MPV 13.40 H (7.40-12.00) fL Neut % (Auto) 79.5 (48.0-80.0) % Lymph % (Auto) 11.2 L (16.0-40.0) % Isabella % (Auto) 6.7 (0.0-15.0) % Eos % (Auto) 2.3 (0.0-7.0) % Baso % (Auto) 0.3 (0.0-1.5) % Neut # (Auto) 6.0 H (1.4-5.7) K/uL Lymph # (Auto) 0.8 (0.6-2.4) K/uL Isabella # (Auto) 0.5 (0.0-0.8) K/uL Eos # (Auto) 0.2 (0.0-0.7) K/uL Baso # (Auto) 0.0 (0.0-0.1) K/uL Nucleated RBC % 0.0 /100WBC Nucleated RBCs # 0 K/uL ABG pH 7.399 (7.35-7.45) ABG pCO2 43 (35-45) mmHG ABG pO2 64 L (75-100) mmHG ABG HCO3 27 H (22-26) mEq/L ABG Total CO2 23.9 ABG Base Excess 1.5 (-2.0-2.0) Sodium 139 (136-148) mmol/L Potassium 4.0 (3.5-5.1) mmol/L Chloride 104 (98-107) mmol/L Carbon Dioxide 27.1 (21.0-32.0) mmol/L BUN 16 (7.0-18.0) mg/dL Creatinine 1.1 (0.8-1.3) mg/dL Est Cr Clr Drug Dosing 91.95 mL/min Estimated GFR (MDRD) > 60.0 ml/min Glucose 86 (74-106) mg/dL Calcium 8.0 L (8.5-10.1) mg/dL Total Bilirubin 1.5 H (0.2-1.0) mg/dL AST 16 (15-37) IU/L ALT 24 (14-63) IU/L Alkaline Phosphatase 90 (46-116) U/L Total Protein 7.4 (6.4-8.2) g/dL Albumin 3.5 (3.4-5.0) g/dL Globulin 3.9 (2.6-4.0) g/dL Albumin/Globulin Ratio 0.9 (0.9-1.6) Satish Results Last 24 Hours: Microbiology 05/14/20 05:44 Aerobic Blood Culture - Preliminary Blood - Venous - Lab Draw NO GROWTH AFTER 1 DAY Anaerobic Blood Culture - Preliminary NO GROWTH AFTER 1 DAY 05/14/20 05:30 Aerobic Blood Culture - Preliminary Blood - Venous NO GROWTH AFTER 1 DAY Anaerobic Blood Culture - Preliminary NO GROWTH AFTER 1 DAY Med Orders - Current: Current Medications Acetaminophen (Tylenol Extra Strength) 500 mg PO Q4H PRN PRN Reason: fever Last Admin: 05/15/20 05:15 Dose: 500 mg Documented by: Apixaban (Eliquis) 5 mg PO BID [facility] Last Admin: 05/15/20 08:39 Dose: 5 mg Documented by: Bacitracin (Bacitracin Oint) 1 gm TOP TID [facility] Last Admin: 05/15/20 08:40 Dose: 1 gm Documented by: Carvedilol (Coreg) 3.125 mg PO BID [facility] Last Admin: 05/15/20 08:40 Dose: 3.125 mg Documented by: Furosemide (Lasix) 40 mg PO BID [facility] Last Admin: 05/15/20 08:39 Dose: 40 mg Documented by: Daptomycin 1,300 mg/ Sodium (Chloride) 26 mls @ 780 mls/hr IV Q24H [facility] Last Admin: 05/14/20 13:14 Dose: 780 mls/hr Documented by: Methimazole (Methimazole) 10 mg PO TID [facility] Last Admin: 05/15/20 05:12 Dose: 10 mg Documented by: Ondansetron HCl (Zofran Odt) 4 mg PO Q4H PRN PRN Reason: nausea, able to take PO Sacubitril/Valsartan [Entresto] 24 Mg-26 Mg Tablet 1 each PO BID [facility] Last Admin: 05/14/20 22:00 Dose: Not Given Documented by: Discontinued Medications Levofloxacin/Dextrose 750 mg/ (Premix) 150 mls @ 100 mls/hr IV ONETIME ONE Stop: 05/14/20 06:55 Last Admin: 05/14/20 05:50 Dose: 100 mls/hr Documented by: Daptomycin 1,300 mg/ Sodium (Chloride) 26 mls @ 780 mls/hr IV Q24H [facility] Last Admin: 05/14/20 14:01 Dose: Not Given Documented by: Iopamidol (Isovue Multipack-370 (76%)) 100 ml IVPUSH ONETIME STA Stop: 05/14/20 06:15 Last Admin: 05/14/20 06:14 Dose: 100 ml Documented by: Ketorolac Tromethamine (Toradol) 30 mg IVPUSH ONETIME ONE Stop: 05/14/20 13:01 Last Admin: 05/14/20 13:14 Dose: 30 mg Documented by: Vancomycin HCl (Pharmacy To Dose - Vancomycin) 1 dose .XX ASDIRECTED [facility] - Exam Quality Assessment: No: Supplemental Oxygen General: Alert, Oriented, Cooperative HEENT: EOMI, Mucous Membr. Moist/[place] Neck: Supple, Other (airway open and patent ) Lungs: Clear to Auscultation, Normal Respiratory Effort Cardiovascular: Regular Rate, Regular Rhythm GI/Abdominal Exam: Soft Extremities: Other (trace edema ; chronic ) Skin: Other (clearly demarvacted area of erythema surrounding ear and right neck. FROM ; non-tender, redness appears slightly improved from yesterday ) Psy/Mental Status: Alert, Normal Mood Sepsis Event Note - Evaluation Sepsis Screening Result: No Definite Risk - Focused Exam Vital Signs: Vital Signs Temp Pulse Pulse Resp BP BP BP 05/15/20 08:40 75 113/68 05/15/20 08:36 98.2 F 75 17 113/68 05/15/20 04:00 97.0 F 81 18 104/58 L 05/15/20 00:00 97.2 F 64 18 127/57 L Pulse Ox 05/15/20 08:40 05/15/20 08:36 92 L 05/15/20 04:00 95 05/15/20 00:00 95 - Problem List & Annotations (1) Cellulitis, face SNOMED Code(s): 823817652 Code(s): L03.211 - CELLULITIS OF FACE Status: Acute Current Visit: Yes (2) Cellulitis SNOMED Code(s): 712151814 Code(s): L03.90 - CELLULITIS, UNSPECIFIED Status: Acute Current Visit: No Qualifiers: Site of cellulitis of extremity: lower extremity (3) Cellulitis of earlobe SNOMED Code(s): 437533992, 804216761 Code(s): H60.10 - CELLULITIS OF EXTERNAL EAR, UNSPECIFIED EAR Status: Acute Current Visit: No Qualifiers: Laterality: right Qualified Code(s): H60.11 - Cellulitis of right external ear - Problem List Review Problem List Initiated/Reviewed/Updated: Yes - My Orders Last 24 Hours: My Active Orders 05/14/20 08:14 Height and Weight [RC] DAILY Oxygen Therapy [RC] PRN Up ad Margarita [RC] ASDIRECTED VTE/DVT Education [RC] PER UNIT ROUTINE Vital Signs [RC] Q4H Ondansetron [Zofran ODT] 4 mg PO Q4H PRN Sequential Compression Device [OM.PC] Per Unit Routine Resuscitation Status Routine 05/14/20 08:15 Antiembolic Devices [RC] .PRN 05/14/20 12:36 Daily Weight [Height and Weight] [RC] DAILY Intake and Output Strict [RC] Q12H 05/14/20 12:53 Acetaminophen [Tylenol Extra Strength] 500 mg PO Q4H PRN 05/14/20 13:00 DAPTOmycin [Cubicin] 1,300 mg Sodium Chloride 0.9% [Normal Saline] 26 ml IV Q24H 05/14/20 14:00 methIMAzole 10 mg PO TID 05/14/20 21:00 Apixaban [Eliquis] 5 mg PO BID Furosemide [Lasix] 40 mg PO BID Patient's Own Medication [Ptom] 1 each PO BID carvediloL [Coreg] 3.125 mg PO BID 05/15/20 08:35 Bacitracin [Bacitracin Oint] 1 gm TOP TID 05/16/20 05:11 CBC WITH AUTO DIFF [HEME] AM COMPREHENSIVE METABOLIC PN,CMP [CHEM] AM 05/17/20 05:11 CBC WITH AUTO DIFF [HEME] AM COMPREHENSIVE METABOLIC PN,CMP [CHEM] AM - Plan Plan:: Assessment: 1. Cellulitis of face/right ear/myositis of right platysma muscle 2. Morbid obesity 3. Past medical history: CHF, hypertension, morbid obesity, hyperthyroidism Plan: 1. Cellulitis of face/right ear myositis of right platysma muscle: Continue Daptomycin + levofloxacin Erythema improving marginally; swelling around ear-lobe unchanged but non-tender; some mild skin cracking; will apply bacitracin to outer portions Right TM: able to visualize; diffuse swelling and redness of canal w.o obstruction appreciated 2. Past medical history CHF: Continue home medications, strict I's and O's, daily weights, sodium restriction and monitor fluid/oxygen status. 3. Atrial fibrillation: Rate controlled on carvedilol. Also anticoagulant and Eliquis however due to weight, may not be optimal for this patient's body weight. Will discuss with patient possibly switching to warfarin if patient is amenable can switch and start. 4. Hypertension: Continue home medications. 5. Hyperthyroidism: goiter noted incidentally on CT face; continue methimazole ; may consider US <Shauna Barnes - Last Filed: 05/15/20 14:37> - Patient Data Vitals - Most Recent: Last Vital Signs Temp 37.0 C 05/15/20 12:51 Pulse 82 05/15/20 12:51 Resp 18 05/15/20 12:51 BP 141/90 H 05/15/20 12:51 Pulse Ox 92 L 05/15/20 12:51 I&O - Last 24 Hours: Intake & Output 05/14/20 05/15/20 05/15/20 22:59 06:59 14:59 Intake Total 900 Balance 900 Lab Results Last 24 Hours: Laboratory Results - last 24 hr 05/15/20 05/15/20 Range/Units 06:15 06:15 WBC 7.50 (4.0-11.0) K/uL RBC 4.13 L (4.50-5.90) M/uL Hgb 13.2 (13.0-17.0) g/dL Hct 39.9 (38.0-50.0) % MCV 96.6 (80.0-98.0) fL MCH 32.0 (27.0-32.0) pg MCHC 33.1 (31.0-37.0) g/dL RDW Std Deviation 53.1 (28.0-62.0) fl RDW Coeff of Avery 15 (11.0-15.0) % Plt Count 101 L (150-400) K/uL MPV 13.40 H (7.40-12.00) fL Neut % (Auto) 79.5 (48.0-80.0) % Lymph % (Auto) 11.2 L (16.0-40.0) % Isabella % (Auto) 6.7 (0.0-15.0) % Eos % (Auto) 2.3 (0.0-7.0) % Baso % (Auto) 0.3 (0.0-1.5) % Neut # (Auto) 6.0 H (1.4-5.7) K/uL Lymph # (Auto) 0.8 (0.6-2.4) K/uL Isabella # (Auto) 0.5 (0.0-0.8) K/uL Eos # (Auto) 0.2 (0.0-0.7) K/uL Baso # (Auto) 0.0 (0.0-0.1) K/uL Nucleated RBC % 0.0 /100WBC Nucleated RBCs # 0 K/uL Sodium 139 (136-148) mmol/L Potassium 4.0 (3.5-5.1) mmol/L Chloride 104 (98-107) mmol/L Carbon Dioxide 27.1 (21.0-32.0) mmol/L BUN 16 (7.0-18.0) mg/dL Creatinine 1.1 (0.8-1.3) mg/dL Est Cr Clr Drug Dosing 91.95 mL/min Estimated GFR (MDRD) > 60.0 ml/min Glucose 86 (74-106) mg/dL Calcium 8.0 L (8.5-10.1) mg/dL Total Bilirubin 1.5 H (0.2-1.0) mg/dL AST 16 (15-37) IU/L ALT 24 (14-63) IU/L Alkaline Phosphatase 90 (46-116) U/L Total Protein 7.4 (6.4-8.2) g/dL Albumin 3.5 (3.4-5.0) g/dL Globulin 3.9 (2.6-4.0) g/dL Albumin/Globulin Ratio 0.9 (0.9-1.6) Satish Results Last 24 Hours: Microbiology 05/14/20 05:44 Aerobic Blood Culture - Preliminary Blood - Venous - Lab Draw NO GROWTH AFTER 1 DAY Anaerobic Blood Culture - Preliminary NO GROWTH AFTER 1 DAY 05/14/20 05:30 Aerobic Blood Culture - Preliminary Blood - Venous NO GROWTH AFTER 1 DAY Anaerobic Blood Culture - Preliminary NO GROWTH AFTER 1 DAY Med Orders - Current: Current Medications Acetaminophen (Tylenol Extra Strength) 500 mg PO Q4H PRN PRN Reason: fever Last Admin: 05/15/20 05:15 Dose: 500 mg Documented by: Apixaban (Eliquis) 5 mg PO BID [facility] Last Admin: 05/15/20 08:39 Dose: 5 mg Documented by: Bacitracin (Bacitracin Oint) 1 gm TOP TID [facility] Last Admin: 05/15/20 14:11 Dose: Not Given Documented by: Carvedilol (Coreg) 3.125 mg PO BID [facility] Last Admin: 05/15/20 08:40 Dose: 3.125 mg Documented by: Furosemide (Lasix) 40 mg PO BID [facility] Last Admin: 05/15/20 08:39 Dose: 40 mg Documented by: Daptomycin 1,300 mg/ Sodium (Chloride) 26 mls @ 780 mls/hr IV Q24H [facility] Last Admin: 05/15/20 14:12 Dose: 780 mls/hr Documented by: Levofloxacin/Dextrose 750 mg/ (Premix) 150 mls @ 150 mls/hr IV Q24H [facility] Last Admin: 05/15/20 12:52 Dose: 150 mls/hr Documented by: Methimazole (Methimazole) 10 mg PO TID [facility] Last Admin: 05/15/20 05:12 Dose: 10 mg Documented by: Ondansetron HCl (Zofran Odt) 4 mg PO Q4H PRN PRN Reason: nausea, able to take PO Sacubitril/Valsartan [Entresto] 24 Mg-26 Mg Tablet 1 each PO BID [facility] Last Admin: 05/15/20 12:25 Dose: Not Given Documented by: Discontinued Medications Levofloxacin/Dextrose 750 mg/ (Premix) 150 mls @ 100 mls/hr IV ONETIME ONE Stop: 05/14/20 06:55 Last Admin: 05/14/20 05:50 Dose: 100 mls/hr Documented by: Daptomycin 1,300 mg/ Sodium (Chloride) 26 mls @ 780 mls/hr IV Q24H [facility] Last Admin: 05/14/20 14:01 Dose: Not Given Documented by: Levofloxacin/Dextrose 750 mg/ (Premix) 150 mls @ 150 mls/hr IV Q24H [facility] Last Admin: 05/15/20 13:17 Dose: Not Given Documented by: Iopamidol (Isovue Multipack-370 (76%)) 100 ml IVPUSH ONETIME STA Stop: 05/14/20 06:15 Last Admin: 05/14/20 06:14 Dose: 100 ml Documented by: Ketorolac Tromethamine (Toradol) 30 mg IVPUSH ONETIME ONE Stop: 05/14/20 13:01 Last Admin: 05/14/20 13:14 Dose: 30 mg Documented by: Vancomycin HCl (Pharmacy To Dose - Vancomycin) 1 dose .XX ASDIRECTED [facility] Sepsis Event Note - Focused Exam Vital Signs: Vital Signs Temp Pulse Pulse Resp BP BP BP 05/15/20 12:51 37.0 C 82 18 141/90 H 05/15/20 08:40 75 113/68 05/15/20 08:36 36.8 C 75 17 113/68 05/15/20 04:00 36.1 C 81 18 104/58 L Pulse Ox 05/15/20 12:51 92 L 05/15/20 08:40 05/15/20 08:36 92 L 05/15/20 04:00 95 - Plan Plan:: I have seen and evaluated the patient and agree with the residents note unless specified in my note
[2020-05-15] MEDS ORDERED: Levofloxacin/Dextrose 5%-Water 750 MG in Premix Bag 1 BAG IV SCH ×2 (12:00→12:40)
[2020-05-15] MEDS: VALSARTAN PO SCH (12:25)
[2020-05-15] MEDS: SACUBITRIL PO SCH (12:25)
[2020-05-15] MEDS: DAPTOMYCIN IV SCH (14:12)
[2020-05-15] MEDS: SODIUM CHLORIDE 0.9% IV SCH (14:12)
--- NOTE | 2020-05-15 16:38 | PCM.DCSUM1 ---
<Farshad Cooper - Last Filed: 05/15/20 16:33> Discharge Summary - Hospital Course Free Text/Narrative:: Patient is a morbidly obese 34-year-old male with significant past medical history of CHF, hypertension, hyperthyroidism; presenting on 05-14-2020 with worsening pain and swelling of his right earlobe. Patient was initially seen in the ED a few days prior after trying to drain his right ear with a sterile razor blade. Provider that day did a needle biopsy with good pus drainage and patient was placed on doxycycline p.o. at home. 4 days of being on antibiotics patient states that the earlobe became more swollen and now it is involving also the inner portion of his right ear as well. Denies any changes in hearing, any problems with moving head and neck and or swallowing. Patient also denies any fevers, chills and or neurologic symptoms. ED course: Facial sinus CT Moderate inflammation involving the right ear pinna and lateral third of the right external ear canal consistent with otitis externa. Right facial/right preauricular soft tissues extending below the mandible on the right side consistent with cellulitis as well as myositis of the right platysma muscle No drainable fluid collection and or abscess. Reactive lymphadenopathy. Enlargement of bilateral thyroid lobes consistent with thyroid goiter Given one-dose of Levofloxacin in ED Patient throughout stay was improving while on daptomycin and Levaquin for right-sided facial cellulitis, right otitis externa and myositics of the platysma muscle on the right side. Patient denies any fevers, chills, body aches, chest pain loss of ROM of neck/head. Patient however on May 15, 2020 requested discharge. However patient had not reached maximal improvement with medications and patient requested to leave and left ultimately AMA. Risks and benefits of leaving were explained to patient. Patient understood but left anyway stating that he has to go to work tonight. Advised patient to return to ED immediately if redness, swelling and or pain develop; patient left AMA but a prescription for Bactrim double strength twice daily x14 days provided to patient and sent to pharmacy. Vitals and labs otherwise are stable in a.m. Advised to return to ED if worsening redness/swelling/pain or restriction in movement of the neck or stiffness in neck develop. Have also discussed with patient his Eliquis, due to his weight, was not optimal for him; pt understood. Initial blood cultures were negative; awaiting repeat blood culture results. Disposition: Left AMA Prescription for Bactrim sent to pharmacy. - Discharge Data Discharge Date: 05/15/20 Discharge Disposition: Against Medical Advice 07 Condition: Stable - Referral to Home Health Primary Care Physician: PCP Not In Area - Discharge Diagnosis/Problem(s) (1) Cellulitis, face SNOMED Code(s): 043964975 ICD Code: L03.211 - CELLULITIS OF FACE Status: Acute (2) Cellulitis SNOMED Code(s): 329608124 ICD Code: L03.90 - CELLULITIS, UNSPECIFIED Status: Acute Qualifiers: Site of cellulitis of extremity: lower extremity (3) Cellulitis of earlobe SNOMED Code(s): 889028747, 280557315 ICD Code: H60.10 - CELLULITIS OF EXTERNAL EAR, UNSPECIFIED EAR Status: Acute Qualifiers: Laterality: right Qualified Code(s): H60.11 - Cellulitis of right external ear - Discharge Plan *PRESCRIPTION DRUG MONITORING PROGRAM REVIEWED*: Not Applicable *COPY OF PRESCRIPTION DRUG MONITORING REPORT IN PATIENT WESLY: Not Applicable Prescriptions/Med Rec: Sulfamethoxazole/Trimethoprim [Bactrim Ds Tablet] 2 tab PO BID 14 Days #56 tablet Home Medications: Home Meds methIMAzole [Methimazole] 10 mg PO TID 03/15/18 [History] Furosemide [Lasix] 40 mg PO BID 07/02/18 [History] Apixaban [Eliquis] 5 mg PO BID 03/22/19 [History] Sacubitril/Valsartan [Entresto 24 mg-26 mg Tablet] 1 tab PO BID 03/22/19 [History] carvediloL [Coreg] 3.125 mg PO BID 03/22/19 [History] Acetaminophen [Tylenol Extra Strength] 500 mg PO Q4H PRN tablet 05/15/20 [Rx] Sulfamethoxazole/Trimethoprim [Bactrim Ds Tablet] 2 tab PO BID 14 Days #56 tablet 05/15/20 [Rx] Patient Handouts: Cellulitis, Adult, [id number] - Discharge Summary/Plan Comment DC Time >30 min.: No - Patient Data Vitals - Most Recent: Last Vital Signs Temp 98.6 F 05/15/20 12:51 Pulse 82 05/15/20 12:51 Resp 18 05/15/20 12:51 BP 141/90 H 05/15/20 12:51 Pulse Ox 92 L 05/15/20 12:51 Weight - Most Recent: 214.957 kg I&O - Last 24 hours: Intake & Output 05/15/20 05/15/20 05/15/20 06:59 14:59 22:59 Intake Total 900 1520 Output Total 0 Balance 900 1520 Lab Results - Last 24 hrs: Laboratory Results - last 24 hr 05/15/20 05/15/20 Range/Units 06:15 06:15 WBC 7.50 (4.0-11.0) K/uL RBC 4.13 L (4.50-5.90) M/uL Hgb 13.2 (13.0-17.0) g/dL Hct 39.9 (38.0-50.0) % MCV 96.6 (80.0-98.0) fL MCH 32.0 (27.0-32.0) pg MCHC 33.1 (31.0-37.0) g/dL RDW Std Deviation 53.1 (28.0-62.0) fl RDW Coeff of Avery 15 (11.0-15.0) % Plt Count 101 L (150-400) K/uL MPV 13.40 H (7.40-12.00) fL Neut % (Auto) 79.5 (48.0-80.0) % Lymph % (Auto) 11.2 L (16.0-40.0) % [place] % (Auto) 6.7 (0.0-15.0) % Eos % (Auto) 2.3 (0.0-7.0) % Baso % (Auto) 0.3 (0.0-1.5) % Neut # (Auto) 6.0 H (1.4-5.7) K/uL Lymph # (Auto) 0.8 (0.6-2.4) K/uL [place] # (Auto) 0.5 (0.0-0.8) K/uL Eos # (Auto) 0.2 (0.0-0.7) K/uL Baso # (Auto) 0.0 (0.0-0.1) K/uL Nucleated RBC % 0.0 /100WBC Nucleated RBCs # 0 K/uL Sodium 139 (136-148) mmol/L Potassium 4.0 (3.5-5.1) mmol/L Chloride 104 (98-107) mmol/L Carbon Dioxide 27.1 (21.0-32.0) mmol/L BUN 16 (7.0-18.0) mg/dL Creatinine 1.1 (0.8-1.3) mg/dL Est Cr Clr Drug Dosing 91.95 mL/min Estimated GFR (MDRD) > 60.0 ml/min Glucose 86 (74-106) mg/dL Calcium 8.0 L (8.5-10.1) mg/dL Total Bilirubin 1.5 H (0.2-1.0) mg/dL AST 16 (15-37) IU/L ALT 24 (14-63) IU/L Alkaline Phosphatase 90 (46-116) U/L Total Protein 7.4 (6.4-8.2) g/dL Albumin 3.5 (3.4-5.0) g/dL Globulin 3.9 (2.6-4.0) g/dL Albumin/Globulin Ratio 0.9 (0.9-1.6) ADALID Results - Last 24 hrs: Microbiology 05/14/20 05:44 Aerobic Blood Culture - Preliminary Blood - Venous - Lab Draw NO GROWTH AFTER 1 DAY Anaerobic Blood Culture - Preliminary NO GROWTH AFTER 1 DAY 05/14/20 05:30 Aerobic Blood Culture - Preliminary Blood - Venous NO GROWTH AFTER 1 DAY Anaerobic Blood Culture - Preliminary NO GROWTH AFTER 1 DAY Med Orders - Current: Current Medications Discontinued Medications Acetaminophen (Tylenol Extra Strength) 500 mg PO Q4H PRN PRN Reason: fever Last Admin: 05/15/20 05:15 Dose: 500 mg Documented by: Apixaban (Eliquis) 5 mg PO BID [facility] Last Admin: 05/15/20 08:39 Dose: 5 mg Documented by: Bacitracin (Bacitracin Oint) 1 gm TOP TID [facility] Last Admin: 05/15/20 14:11 Dose: Not Given Documented by: Carvedilol (Coreg) 3.125 mg PO BID [facility] Last Admin: 05/15/20 08:40 Dose: 3.125 mg Documented by: Furosemide (Lasix) 40 mg PO BID [facility] Last Admin: 05/15/20 08:39 Dose: 40 mg Documented by: Levofloxacin/Dextrose 750 mg/ (Premix) 150 mls @ 100 mls/hr IV ONETIME ONE Stop: 05/14/20 06:55 Last Admin: 05/14/20 05:50 Dose: 100 mls/hr Documented by: Daptomycin 1,300 mg/ Sodium (Chloride) 26 mls @ 780 mls/hr IV Q24H [facility] Last Admin: 05/14/20 14:01 Dose: Not Given Documented by: Daptomycin 1,300 mg/ Sodium (Chloride) 26 mls @ 780 mls/hr IV Q24H [facility] Last Admin: 05/15/20 14:12 Dose: 780 mls/hr Documented by: Levofloxacin/Dextrose 750 mg/ (Premix) 150 mls @ 150 mls/hr IV Q24H [facility] Last Admin: 05/15/20 13:17 Dose: Not Given Documented by: Levofloxacin/Dextrose 750 mg/ (Premix) 150 mls @ 150 mls/hr IV Q24H [facility] Last Admin: 05/15/20 12:52 Dose: 150 mls/hr Documented by: Iopamidol (Isovue Multipack-370 (76%)) 100 ml IVPUSH ONETIME STA Stop: 05/14/20 06:15 Last Admin: 05/14/20 06:14 Dose: 100 ml Documented by: Ketorolac Tromethamine (Toradol) 30 mg IVPUSH ONETIME ONE Stop: 05/14/20 13:01 Last Admin: 05/14/20 13:14 Dose: 30 mg Documented by: Methimazole (Methimazole) 10 mg PO TID [facility] Last Admin: 05/15/20 16:06 Dose: 10 mg Documented by: Ondansetron HCl (Zofran Odt) 4 mg PO Q4H PRN PRN Reason: nausea, able to take PO Sacubitril/Valsartan [Entresto] 24 Mg-26 Mg Tablet 1 each PO BID [facility] Last Admin: 05/15/20 12:25 Dose: Not Given Documented by: Vancomycin HCl (Pharmacy To Dose - Vancomycin) 1 dose .XX ASDIRECTED [facility] <Shauna Barnes - Last Filed: 05/23/20 12:59> Discharge Summary - Hospital Course Free Text/Narrative:: I have seen and evaluated the patient and agree with the residents note unless specified in my note - Referral to Home Health Primary Care Physician: PCP Not In Area - Patient Data Vitals - Most Recent: Last Vital Signs Temp 37.0 C 05/15/20 12:51 Pulse 82 05/15/20 12:51 Resp 18 05/15/20 12:51 BP 141/90 H 05/15/20 12:51 Pulse Ox 92 L 05/15/20 12:51 Med Orders - Current: Current Medications Discontinued Medications Acetaminophen (Tylenol Extra Strength) 500 mg PO Q4H PRN PRN Reason: fever Last Admin: 05/15/20 05:15 Dose: 500 mg Documented by: Apixaban (Eliquis) 5 mg PO BID [facility] Last Admin: 05/15/20 08:39 Dose: 5 mg Documented by: Bacitracin (Bacitracin Oint) 1 gm TOP TID [facility] Last Admin: 05/15/20 14:11 Dose: Not Given Documented by: Carvedilol (Coreg) 3.125 mg PO BID [facility] Last Admin: 05/15/20 08:40 Dose: 3.125 mg Documented by: Furosemide (Lasix) 40 mg PO BID [facility] Last Admin: 05/15/20 08:39 Dose: 40 mg Documented by: Levofloxacin/Dextrose 750 mg/ (Premix) 150 mls @ 100 mls/hr IV ONETIME ONE Stop: 05/14/20 06:55 Last Admin: 05/14/20 05:50 Dose: 100 mls/hr Documented by: Daptomycin 1,300 mg/ Sodium (Chloride) 26 mls @ 780 mls/hr IV Q24H [facility] Last Admin: 05/14/20 14:01 Dose: Not Given Documented by: Daptomycin 1,300 mg/ Sodium (Chloride) 26 mls @ 780 mls/hr IV Q24H [facility] Last Admin: 05/15/20 14:12 Dose: 780 mls/hr Documented by: Levofloxacin/Dextrose 750 mg/ (Premix) 150 mls @ 150 mls/hr IV Q24H [facility] Last Admin: 05/15/20 13:17 Dose: Not Given Documented by: Levofloxacin/Dextrose 750 mg/ (Premix) 150 mls @ 150 mls/hr IV Q24H [facility] Last Admin: 05/15/20 12:52 Dose: 150 mls/hr Documented by: Iopamidol (Isovue Multipack-370 (76%)) 100 ml IVPUSH ONETIME STA Stop: 05/14/20 06:15 Last Admin: 05/14/20 06:14 Dose: 100 ml Documented by: Ketorolac Tromethamine (Toradol) 30 mg IVPUSH ONETIME ONE Stop: 05/14/20 13:01 Last Admin: 05/14/20 13:14 Dose: 30 mg Documented by: Methimazole (Methimazole) 10 mg PO TID [facility] Last Admin: 05/15/20 16:06 Dose: 10 mg Documented by: Ondansetron HCl (Zofran Odt) 4 mg PO Q4H PRN PRN Reason: nausea, able to take PO Sacubitril/Valsartan [Entresto] 24 Mg-26 Mg Tablet 1 each PO BID [facility] Last Admin: 05/15/20 12:25 Dose: Not Given Documented by: Vancomycin HCl (Pharmacy To Dose - Vancomycin) 1 dose .XX ASDIRECTED [facility]
== END 2020-05-15 16:22 | disposition left against medical advice (07) | DRG 155 ==
LOC: MW.ED 05:05 → MW.MS 07:02
PROVIDERS: ADMIT Student in an Organized Health Care Education/Training Program; ATTEND Student in an Organized Health Care Education/Training Program
DX: H60.11 Cellulitis of right external ear (principal); L03.211 Cellulitis of face; Z68.45 Body mass index [BMI] 70 or greater, adult; E66.01 Morbid (severe) obesity due to excess calories; I11.0 Hypertensive heart disease with heart failure; I50.9 Heart failure, unspecified; M60.9 Myositis, unspecified; Z20.822 Contact with and (suspected) exposure to COVID-19; I48.91 Unspecified atrial fibrillation; E05.90 Thyrotoxicosis, unspecified without thyrotoxic crisis or storm; E03.9 Hypothyroidism, unspecified; Z79.01 Long term (current) use of anticoagulants
CPT/HCPCS: 36415; 36600; 70487; 70487-26; 80053; 82550; 82803; 83036; 83605; 83735; 84100; 85025; 85610; 85652; 85730; 86140; 87040; 96365; 99221; 99238; 99283; 99284-25; A9270-GY; J0878; J1885; J1956; Q9967; U0002

== ENCOUNTER 2021-05-05 20:39 | Emergency (ER) | payer MEDICAID, OTHER ==
[2021-05-05] MEDS ORDERED: Morphine 4 MG/ML VIAL IVPUSH ONE (21:24)
[2021-05-05] MEDS ORDERED: Sodium Chloride 0.9% 1,000 ML IV ONE (21:24)
[2021-05-05 23:01] LABS: BLOOD UREA NITROGEN,BUN 10 mg/dL (7.0-18.0); CHLORIDE,CL 100 mmol/L (98-107); GLUCOSE RANDOM 86 mg/dL (74-106); POTASSIUM,K 3.7 mmol/L (3.5-5.1); SODIUM,NA 138 mmol/L (136-148)
[2021-05-05] MEDS ORDERED: Iopamidol 755 MG/ML 500 ML Multipack Bottle IVPUSH STA (23:41)
[2021-05-06] MEDS ORDERED: cefTRIAXone 500 MG in Lidocaine 1% 1 ML IM ONE (02:06)
== END 2021-05-06 02:24 | disposition home or self-care (01) ==
LOC: MW.ED 20:39
DX: R22.9 Localized swelling, mass and lump, unspecified (principal); N50.811 Right testicular pain; I11.0 Hypertensive heart disease with heart failure; I50.9 Heart failure, unspecified; E03.9 Hypothyroidism, unspecified; Z79.01 Long term (current) use of anticoagulants; Z79.899 Other long term (current) drug therapy; Z72.0 Tobacco use
CPT/HCPCS: 36415; 74177; 76870; 80053; 81001; 83605; 85025; 93976; 96372; 96374; 99284; J0696; J2270; J7030; Q9967

== ENCOUNTER 2021-10-14 08:11 | Emergency (ER) | payer OTHER ==
[2021-10-14] MEDS ORDERED: Sodium Chloride 0.9% 2.5 ML Syringe FLUSH PRN (08:28)
[2021-10-14] MEDS ORDERED: Sodium Chloride 0.9% 10 ML Syringe FLUSH PRN (08:28)
[2021-10-14] MEDS ORDERED: ceFAZolin 2 GM in Premix Bag 1 BAG IV ONE (08:30)
[2021-10-14] MEDS ORDERED: Morphine 4 MG/ML VIAL IVPUSH ONE (08:32)
[2021-10-14] MEDS ORDERED: Ondansetron 4 MG/2 ML SDV IVPUSH ONE (08:32)
[2021-10-14 09:20] LABS: CARBON DIOXIDE,CO2 29.4 mmol/L (21.0-32.0); POTASSIUM,K 3.5 mmol/L (3.5-5.1)
[2021-10-14] MEDS ORDERED: VANCOmycin 2 GM/400 ML 2 GM in Premix Bag 1 BAG IV ONE (10:00)
== END 2021-10-14 12:30 | disposition home or self-care (01) ==
LOC: MW.ED 08:11
DX: L03.116 Cellulitis of left lower limb (principal); Z20.822 Contact with and (suspected) exposure to COVID-19
CPT/HCPCS: 36415; 80053; 83605; 85025; 87040; 87635; 93005; 93971; 96365; 96366; 96367; 96375; 99284; J0690; J2270; J2405; J3370; J3490; U0002

== ENCOUNTER 2021-10-17 03:31 | Emergency (ER) | payer OTHER ==
[2021-10-17] MEDS ORDERED: Sodium Chloride 0.9% 10 ML Syringe FLUSH PRN (03:48)
[2021-10-17] MEDS ORDERED: Sodium Chloride 0.9% 2.5 ML Syringe FLUSH PRN (03:48)
[2021-10-17] MEDS ORDERED: Lidocaine 1% 5 ML VIAL ONE (04:12)
[2021-10-17] MEDS ORDERED: Bacitracin Oint 28.35 GM Tube ONE (04:33)
[2021-10-17 04:40] LABS: BLOOD UREA NITROGEN,BUN 9 mg/dL (7.0-18.0); CARBON DIOXIDE,CO2 22.4 mmol/L (21.0-32.0); CHLORIDE,CL 97 mmol/L (98-107); GLUCOSE RANDOM 201 mg/dL (74-106); POTASSIUM,K 3.5 mmol/L (3.5-5.1); SODIUM,NA 133 mmol/L (136-148)
[2021-10-17 04:58] LABS: ESTIMATED GFR 72 mL/min (>60)
[2021-10-17] MEDS ORDERED: Bacitracin Oint 28.35 GM Tube TOP STA (05:24)
[2021-10-17] MEDS ORDERED: Lidocaine 1% with EPINEPHrine 1:100,000 10 ML MDV INJECT ONE (05:24)
[2021-10-17] MEDS ORDERED: Lidocaine 1% 5 ML VIAL INJECT ONE (05:24)
[2021-10-17] MEDS: VANCOmycin 2 GM/400 ML 2 GM in Premix Bag 1 BAG IV SCH ×2 (06:33→18:32)
[2021-10-17 12:09] LABS: CARBON DIOXIDE,CO2 25.3 mmol/L (21.0-32.0); POTASSIUM,K 3.4 mmol/L (3.5-5.1)
== END 2021-10-17 19:01 ==
LOC: MW.ED 03:31
DX: R57.8 Other shock (principal); L03.116 Cellulitis of left lower limb; I48.91 Unspecified atrial fibrillation; I11.0 Hypertensive heart disease with heart failure; I50.9 Heart failure, unspecified; E03.9 Hypothyroidism, unspecified; Z79.01 Long term (current) use of anticoagulants; Z20.822 Contact with and (suspected) exposure to COVID-19
CPT/HCPCS: 36415; 36430; 80048; 80053; 80202; 85014; 85018; 85025; 86850; 86900; 86901; 86920; 87040; 87635; 96365; 96366; 99291; J3370; J3490; P9016; A9270-GY; U0002